=== PATIENT | male | born 1950 | race Caucasian/White ===

== ENCOUNTER 2022-10-27 11:26 | Emergency (ER) | payer OTHER, SELFPAY ==
--- OUTSIDE RECORDS SUMMARY | 2022-10-27 11:39 | XMS REPORT | Continuity of Care Document ---
:1950 Author Organization [facility] t Address [address] [facility] [address] [place] [address] Care Team Providers Name Role Phone BONNIE COBURN Primary Care Physician Unavailable FRANCISCO BARTLETT Attending Clinician Unavailable KYRIE STANLEY Attending Clinician Unavailable BONNIE COBURN Attending Clinician Unavailable RACHANA STEIN Attending Clinician Unavailable VICKY CUMMINGS Attending Clinician Unavailable WILFREDO REYNA Attending Clinician Unavailable [email or web address]_Corbyuer_ Attending Clinician Unavailable KALI PADGTET Attending Clinician Unavailable BRANDON PARRISH Attending Clinician Unavailable YAA VILLALTA Attending Clinician Unavailable MD PATI Attending Clinician Unavailable Stefan Power Attending Clinician [phone] Belinda Beltran MD Attending Clinician Anjel Curiel MD Attending Clinician ANJEL CURIEL Attending Clinician Unavailable KEIRA VALADEZ Attending Clinician Unavailable MAINOR TRIANA Attending Clinician Unavailable STEFAN PEREZ Attending Clinician Unavailable BELINDA ESPINAL Attending Clinician Unavailable JULIÁN RODRIGES Attending Clinician Unavailable UDAY ABRAMS Attending Clinician Unavailable LAB56 Attending Clinician Unavailable Vicky Cummings PA-C Attending Clinician TREDCameron Attending Clinician Unavailable DEIDRA MULLER Attending Clinician Unavailable Francisco Bartlett MD Attending Clinician BISI VANN Attending Clinician Unavailable LAB70 Attending Clinician Unavailable Bonnie Coburn MD Attending Clinician Bisi Vann MD Attending Clinician MONIQUE NOYOLA Attending Clinician Unavailable SWAB, SMDC COVID SELF Attending Clinician Unavailable [id number] Attending Clinician Unavailable VICTOR HUGONAILA KAYE Attending Clinician Unavailable O'Brien Au.DNaila Attending Clinician [phone] Yohana JONESW, Deidra Attending Clinician OREN NAVA Attending Clinician Unavailable DOMINGO LEBRON Attending Clinician Unavailable ALMA ARCE Attending Clinician Unavailable Alma Arce MD Attending Clinician Becky Smith OD Attending Clinician COVID-MODERNA UDAY JAFFE Attending Clinician Unavailabl e PROVIDER, EVISIT Attending Clinician Unavailable Ernie Prabhakar MD Attending Clinician [phone] VANNA CHANCE Attending Clinician Unavailable AALIYAH FITZGERALD Attending Clinician Unavailable [email or web address]_Corbybauer_ Admitting Clinician Unavailable ANJEL CURIEL Admitting Clinician Unavailable Payers Payer Name Policy Type Policy Number Effective Date Expiration Date Cleopatra rapp Yandy [facility] 7 [id number] 2013 00:00:00 Problems Condition Condition Condition Status Onset Resolution Last Treating Co mments Source Name Details Category Date Date Treatment Clinician Date Witnessed Witnessed Disease Active [facility] seizure-li seizure-li 3 Aminta kes ke ke 00:00: Medical activity activity 00 Center Acute on Acute on Disease Recurre [facility] chronic chronic [facility]ce 3 [facility] pancreatit pancreatit 00:00: Me dical is is 00 Center Acute Acute Disease Recurre [facility] renal renal nce 3 [facility] failure failure 00:00: Medical superimpos superimpos 00 Ce nter ed on ed on stage 3a stage 3a chronic chronic kidney kidney disease disease Hyponatrem Hyponatrem Disease Recurre [facility] ia ia nce 07[facility]22 [facility] 00[facility] Center UTI UTI Disease Active [facility] (urinary (urinary 3-06 [facility] tract tract 00:00: Medical infection) infection) 00 Ce nter Acute Acute Disease Active [facility] pancreatit pancreatit 3-06 Aminta kes is, is, 00:00: Medical unspecifie unspecifie 00 Ce nter d d complicati complicati on status, on status, unspecifie unspecifie d d pancreatit pancreatit is type is type Renal Renal Disease Active [facility] lesion lesion 3-06 [facility] Immunocomp Immunocomp Disease Active Harman fish romised romised 1-05 Seybold patient patient 00:00: - 00 Externa l Severe Severe Disease Active 2021-05 [facility] obesity obesity 2-29 Seybold (BMI >= (BMI >= 00:00: - 40) 40) 00 Externa l 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 2-29 Seybol d mellitus mellitus 00:00: - with with 00 Externa hyperlipid hyperlipid l emia emia 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 Harman fish ed type 2 ed type 2 2-23 Seyb old diabetes diabetes 00:00: - mellitus mellitus 00 Potato Inspector a with with l hyperglyce hyperglyce dhaval dhaval Generalize Generalize Disease Active 2020-05 Harman rossi anxiety d anxiety 0-27 Seyb old disorder disorder 00:00: - 00 Externa l Acute Acute Disease Active Ada left-sided left-sided 9-16 Se ybold low back low back 00:00: - pain with pain with 00 Exte rna left-sided left-sided l sciatica sciatica Anger Anger Disease Active Ada 6-24 Seybold 00:00: - 00 Externa l 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 6-20 Se ybold disorder, disorder, 00:00: - recurrent, recurrent, 00 Ex terna moderate moderate l Passive Passive Disease Active Ada suicidal suicidal 6-20 Seybol d ideations ideations 00:00: - 00 Externa l Episode of Episode of Disease Active Harman fish recurrent recurrent 6-20 Seyb old major major 00:00: depressive depressive 00 disorder disorder Type 2 Type 2 Disease Active Overview: Ada diabetes diabetes 4-08 Formattin Sey bold mellitus mellitus 00:00: g of this - with stage with stage 00 note Ex terna 3a chronic 3a chronic might be l kidney kidney different disease disease from the original. StableLas t Assessmen t & Plan: Formattin g of this note might be different from the original. Improved on Insulin and FORTINO I Stage 3a Stage 3a Disease Active Overview: Zahc lsey chronic chronic 4-06 Formattin Seybo ld kidney kidney 00:00: g of this - disease disease 00 note Externa might be l different from the original. Persists. Last Assessmen t & Plan: Formattin g of this note might be different from the original. Controlle d on Lisinopri l Recurrent Recurrent Disease Active Sumanth sey major major 4-06 Seybold depressive depressive 00:00: disorder, disorder, 00 in partial in partial remission remission Bilateral Bilateral Disease Active Sumanth lois hearing hearing 4-06 Seybold loss loss 00:00: - 00 Externa l Gastroesop Gastroesop Disease Active Harman fish hageal hageal 4-06 Seybold reflux reflux 00:00: disease disease 00 with with esophagiti esophagiti s s Morbid Morbid Disease Active Ada obesity obesity 4-06 Seybold with BMI with BMI 00:00: - of of 00 Externa 40.0-44.9, 40.0-44.9, l adult adult Hypothyroi Hypothyroi Disease Active Harman fish dism dism 4-06 Seybold 00:00: - 00 Externa l 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 The patient is advised to monitor their blood pressure regularly . DASH diet is discussed . Please bring the records in for the next visit. 1991Last Assessmen t & Plan: Formattin g of this note might be different from the original. Controlle d on Metoprolo l, HCTZ, Lisinopri l. Diabetic Diabetic Disease Active Overview: Zach david cataract cataract 7 Formattin Sey bold 00:00: g of this - note Externa might be l different from the original. Follow up with ophthalmo logy. Type 2 Type 2 Disease Active Enoc Caballero diabetes diabetes 3-04 Assessmen Lois valero mellitus mellitus 00:00: t & Plan: - with with 00 Formattin Externa atheroscle atheroscle g of this l rosis of rosis of note aorta aorta might be different from the original. Controlle d Encounter Encounter Disease Active 2017-05 Sumanth rausch for for - Seybold long-term long-term 00:00: - (current) (current) 00 Exte rna use of use of l insulin insulin Hypertensi Hypertensi Disease Active 2016-05 Overview : Ada ve chronic ve chronic 0-24 Formattin Seybold kidney kidney 00:00: g of this - disease disease 00 note Externa might be l different from the original. The patient is advised to monitor their blood pressure regularly . DASH diet is discussed . Please bring the records in for the next visit. Last Assessmen t & Plan: Formattin g of this note might be different from the original. 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 Stable.La st Assessmen t & Plan: Formattin g of this note might be different from the original. Controlle d on current medicatio ns. 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 I recommend you exercise regularly and decrease consumpti on of high sugar foods including refined sugars, white rice, white bread, pasta, potatoes, fruit juices, and high fructose beverages . I also suggest increasin g consumpti on of fish that contain high amounts of omega-3 fatty acids such as salmon or white fish (such has cod, sea aguilar, snapper, wild catfish). Last Assessmen t & Plan: Formattin g of this note might be different from the original. Improved. Intoleran t of Statin. Only on Zetia. Vitamin D Vitamin D Disease Active Overview: Ada deficiency deficiency 4-17 Formattin Seybold 00:00: g of this note Externa might be l different from the original. Further managemen t will be based on the test results. Last Assessmen t & Plan: Formattin g of this note might be different from the original. Controlle d Colon Colon Disease Active 2015-05 Ada polyps polyps 2-08 Seybold 00:00: - 00 Externa l Cataract, Cataract, Disease Active 2015-05 Sumanth sey nuclear nuclear 0-25 Seybold sclerotic sclerotic 00:00: - senile, senile, 00 Externa bilateral bilateral l Posterior Posterior Disease Active 2015-05 Sumanth sey vitreous vitreous 0-25 Seybol d detachment detachment 00:00: - of both of both 00 Externa eyes eyes l Stage 3 Stage [address] [facility] chronic chronic nce 1-20 [facility] kidney kidney 00:00: Medical disease disease 00 Center Cellulitis Cellulitis Disease Active [facility] of left of left 1-20 [facility] foot foot 00:00: Medical 00 Center Diabetes Diabetes Disease Active [facility] mellitus mellitus 1-20 [facility] type 2 in type 2 in 00:00: Medi jossue obese obese 00 Center Morbid Morbid Disease Active [facility] obesity obesity 1-20 [facility] 00:[facility]: Medical 00 Center DM type 2 DM type 2 Disease Active 2014-05 Overview: Ada with with 1-30 Formattin Seybold diabetic diabetic 00:00: g of this - mixed mixed 00 note Externa hyperlipid hyperlipid might be l emia emia different from the original. The patient was advised to monitor their blood sugars regularly . Proper diet (carbohyd rate counting) and exercise are discussed . Annual diabetic eye exams are to be done. Proper foot care is also discussed . Last Assessmen t & Plan: Formattin g of this note might be different from the original. Controlle d on Insulin Psoriasis Psoriasis Disease Active 2014-05 Overview: Ada 1-30 Formattin Seybold 00:00: g of this note Externa might be l different from the original. No current treatment Last Assessmen t & Plan: Formattin g of this note might be different from the original. Unchanged HIEU HIEU Disease Recurre [facility] (obstructi (obstructi nce 8-13 Aminta kes ve sleep ve sleep 00:00: Medica l apnea) apnea) 00 Center Cellulitis Cellulitis Disease Active [facility] of foot of foot 8-13 [facility] without without 00:00: Medical toes, toes, 00 Center right right CAD CAD Disease Active [facility] (coronary (coronary 4-08 [facility] s artery artery 00:00: Medical disease) disease) 00 Center HTN HTN Disease Active [facility] (hypertens (hypertens 4-08 Aminta kes ion) ion) 00:00: Medical 00 Center HLD HLD Disease Active [facility] (hyperlipi (hyperlipi 4-08 Aminta kes demia) demia) 00:00: Medical 00 Center Obesity Obesity Disease Active [facility] 4[facility]08 [facility] 00[facility]: [facility] 00 Center 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 F/U with cardiolog y.Last Assessmen t & Plan: Formattin g of this note might be different from the original. Controlle d On current meds. GERD GERD Disease Active Overview: Ada (gastroeso (gastroeso 3-11 Formattin Seybold phageal phageal 00:00: g of this - reflux reflux 00 note Externa disease) disease) might be l different from the original. GERD behaviora l and dietary modificat ions were discussed with the patient. Last Assessmen t & Plan: Formattin g of this note might be different from the original. Controlle d on Pantopraz ole CAD: CAD: Disease Active Overview: Ada history of history of 8-20 Formattin Seybold RCA stent RCA stent 00:00: g of this - note Externa might be l different from the original. He is following up with Dr. Stein. Last Assessmen t & Plan: Formattin g of this note might be different from the original. Controlle d With Clopidogr el, and zetia Allergies, Adverse Reactions, Alerts Allergy Allergy Status Severity Reaction(s) Onset Inactive Treating Comm ents Source Name Type Date Date Clinician Rosuvast Propensi Active Myalgia Kelse y atin ty to 1-20 Seybold Calcium adverse 00:00: - reaction 00 Externa s l Statins- Propensi Active [facility]Co[facility] ty to 12-11 [facility] Reductas adverse 00:00: Medical e reaction 00 Center Inhibito s rs Statins- Propensi Active [facility] to 12-11 [facility] Reductas adverse 00:00: Medical e reaction 00 Center Inhibito s rs STATINS- Allergy Active [facility]G-COA 12-11 REDUCTAS 00:00: E 00 INHIBITO RS Fenofibr Drug Active Hives 2016-[address] [facility] ate Allergy 06-16 [facility] 00:00: Medical 00 Center FENOFIBR Allergy Active Hives 2016-[address] [facility] ATE 06-16 [facility] 00:00: Medical 00 Center Fenofibr Propensi Active Myalgia 2016-05 Kelse y ate ty to -29 Seybold adverse 00:00: - reaction 00 Externa s to l drug Fenofibr Propensi Active Myalgia 2016-05 Kelse y ate ty to 1-29 Seybold adverse 00:00: reaction 00 s to drug Atorvast Propensi Active Myalgia Myalgias Sumanth sey atin ty to 4-26 at doses Seybold adverse 00:00: > 20 mg - reaction 00 Externa s to l drug Pravasta Propensi Active Myalgia 2015-05 Kelse y tin ty to 2-30 Seybold adverse 00:00: - reaction 00 Externa s l Metformi Drug Active Nausea [facility] n Allergy Vomiting 08-20 [facility] 00:[facility]: Medical 00 Center METFORMI Allergy Active N\\T\\V [facility] N 08-20 00:00: 00 Metformi Propensi Active Upset Ada n ty to 7- stomach Seybold adverse 00:00: - reaction 00 Externa s to l drug Family History Family Member Diagnosis Comments Start Date Stop Date Source Natural brother Heart disease [facility] Natural father Diabetes [facility] Natural father Heart disease [facility] Natural father Hypertension [facility] Natural father Stroke [facility] Natural mother Cancer [facility] Natural son Unremarkable [facility] Social History Social Habit Start Date Stop Date Quantity Comments Source Gender identity 2020-08-21 Identifies as male Harman Becerra 11:44:41 gender (finding) - Potato Inspector al Sexual orientation 2020-08-21 Heterosexual Prema Becerra 11:44:41 (finding) - External Exposure to Not sure Ada Coronadoybol flo SARS-CoV-2 (event) Alcohol intake 2022-07-22 2022-07-22 Current non-drinker [facility] 00:[facility] 00[facility]00[facility]00 of [facility] (finding) Tobacco Comment 2021-04-19 2021-04-19 stopped smoking 43 Harman Becerra 00:00:00 00:00:00 yrs ago - External History of Social 2020-04-29 2020-04-29 Ada Coronadochristophefritz function 00:00:00 00:00:00 - External Cigarettes smoked 2013-12-29 2013-12-[address] [facility] current (pack per 00:00:00 00:00:00 [facility] Center day) - Reported Cigarette 2013-12-29 2013-12-[address] [facility] pack-years 00:00:00 00:00:00 [facility] Tobacco use and 2013-12-29 2013-12-[address] [facility] exposure 00:00:00 00:00:00 non-user [facility] History of tobacco 1987-05-19 Cigarette Smoker Ada Hamfritz use 00:00:00 - External Sex [birth year] At [birth year] IKE Duong 00:00:00 00:00:00 [facility] Smoking Status Start Date Stop Date Source Ex-smoker 2013-12-29 00:00:00 2013-12-29 00:00:00 [facility] Medications Ordered Filled Start Stop Current Ordering Indication Dosage Frequency Signature Comments Components Source Medication Medication Date Date Medication? Clinician (SIG) Name Name Cephalexin Yes [id number] 500mg Take 1 Ada (Keflex) 6 [id number] capsule Seybol d 500 MG oral 00:00: (500 mg - Capsule 00 total) by Externa mouth 4 l times daily Clopidogrel 0 2023- Yes 75mg Take 1 Sumanth sey Bisulfate 5-26 05-21 tablet (75 Sey bold (PLAVIX) 75 00:00: 04:59 mg total) - MG oral 00 :00 by mouth Externa Tablet daily l Fluoxetine 0 Yes [id number] TAKE ONE Ada HCl 40 MG 5-22 CAPSULE BY Seyb old oral 00:00: MOUTH - Capsule 00 EVERY DAY Externa l hydroCHLORO 0 Yes [id number] TAKE ONE Ada thiazide 25 5-19 TABLET BY Sey bold MG oral 00:00: MOUTH - Tablet 00 EVERY DAY Externa l Amlodipine 0 Yes [id number] TAKE ONE Ada Besylate 5-19 TABLET BY Seybol d (NORVASC) 5 00:00: MOUTH - MG oral 00 EVERY DAY Externa Tablet l Ezetimibe 0 Yes [id number] TAKE ONE Ada 10 MG oral 5-19 TABLET BY Seyb old Tablet 00:00: MOUTH - 00 EVERY DAY Externa l ARIPiprazol Yes 1mg QD Take [address] [facility] (ABILIFY) 3-10 by mouth Luke s 2 MG tablet 12:54: daily. [address] EZETIMIBE 0 Yes 10mg QD Take [address] ORAL 3-10 by mouth [facility] 12:54: nightly. [facility] [address] [place] empaglifloz 0 Yes type 2 10mg QD Take [address] [facility] in 3-10 diabetes by mouth [facility] (Jardiance) 12:54: mellitus daily. Medical 10 mg 00 Center tablet lisinopriL Yes hypertensio 20mg QD Take [address] [facility] (PRINIVIL,Z 3-10 n by mouth Luke s ESTRIL) 20 12:54: daily. Medic al MG tablet 00 [place] rosuvastati 0 Yes hyperlipide 5mg QD Take [address] [facility] n (CRESTOR) 3-10 dhaval by mouth Luke s 5 MG tablet 12:54: daily. [address] dapaglifloz 0 3- No type 2 5mg QD Take [address] [facility] in 3-10 03-09 diabetes by mouth [facility] (Farxiga) 5 12:54: 00:00 mellitus daily. Medical mg tablet 00 :00 Center clopidogrel Yes 75mg QD Take [address] [facility] (PLAVIX) 75 -09 by mouth Luke s mg tablet 12:54: daily. Medica l 48 Center hydrochloro Yes 12.5mg QD Take 12.[address] [facility] thiazide 3-09 mg by [facility]ukes (HYDRODIURI 12:54: mouth Medic al L) 25 MG 48 daily . Center tablet insulin NPH Yes 150U Inject [address] [facility] 100 unit/mL 3-09 Units [facility]ukes (3 mL) InPn 12:54: subcutaneo Medical 48 usly 2 Center (two) times daily before meals . metoprolol Yes 50mg QD Take [address] (LOPRESSOR) -09 by mouth Luke s 50 MG 12:54: daily. Medical tablet 48 Center pantoprazol Yes 40mg QD Take [address] [facility] e 3-09 by mouth [facility] (PROTONIX) 12:54: daily. Medic al 40 MG 48 Center tablet cyanocobala Yes 100ug QD Take [address] min 3-09 mcg by [facility] (VITAMIN 12:54: mouth Medical B-12) 100 48 daily. Center MCG tablet multivitami Yes 1{tbl} Take [address] (Folbee) 09 tablet by Frank es 2.5-25-1 mg 12:54: mouth. Medi jossue Tab tablet 48 Center cholecalcif Yes [id number] Take [facility] doc, 07-25 50,000 [facility] vitamin D3, 12:54: Units by Ny dical 1,250 mcg 48 mouth Center (50,000 every 30 unit) Tab (thirty) days. atorvastati 2022- No 20mg QD Take [address] (LIPITOR) 07-25 by mouth Frank es 20 MG 11:55: 00:00 daily. Medical tablet 38 :00 [place] FLUoxetine 0 2022- No 40mg QD Take [address] [facility] (PROZAC) 40 07-25 by mouth Frank es MG capsule 11:44: 00:00 daily. Medi jossue 43 :00 [place] aspirin 81 2022- No 81mg QD Take [address] MG EC 07-25 by mouth [facility] tablet 11:40: 00:00 every Medical 57 :00 evening. [place] etodolac 2022- No 1{tbl} Take [address] [facility] (LODINE) 07-25 tablet by [facility] 400 MG 11:40: 00:00 mouth. Medical tablet 35 :00 [place] Metoprolol Yes [id number] TAKE ONE Ada Tartrate 2-25 TABLET BY Seybol d (LOPRESSOR) 00:00: MOUTH - 50 MG oral 00 EVERY DAY Exte rna Tablet l Pantoprazol Yes TAKE ONE Ke lsey e Sodium 40 1-23 TABLET BY Sey bold MG oral 00:00: MOUTH - Tablet 00 EVERY DAY Externa Delayed l Response Aripiprazol Yes TAKE Ada e 2 MG oral 1-04 ONE-HALF Seyb old Tablet 00:00: TABLET BY - 00 MOUTH Externa EVERY DAY l FOR MOOD MULTIPLE 2021-05 Yes 1{tbl} Take 1 Kelse y VITAMIN OR 2-29 tablet by Seyb old 16:24: mouth - 27 daily Externa l ASPIRIN 81 2021-05 Yes 1{tbl} Take 1 Sumanth sey OR 2-29 tablet by Seybold 16:24: mouth - 27 daily Externa l Folic 2021-05 Yes 1{tbl} Take 1 Ada Acid-Vit 2-29 tablet by Seybol d B6-Vit B12 16:24: mouth - (Folbee) 27 daily Externa 2.5-25-1 MG l oral Tab B Complex 2021-05 Yes 1{tbl} Take 1 Prema ey Vitamins (B 2-29 tablet by Sey bold Complex-B12 16:24: mouth - ) oral Tab 27 daily Externa l Pioglitazon 2021-05 Yes every 24 Ke lsey e HCl 45 MG 2-29 hours Seybold oral Tablet 16:24: - 27 Externa l [place]-3-aci 2021-05 Yes every 12 Ke lsey d Ethyl 2-29 hours Seybold Esters 1 g 16:24: - oral 27 Externa Capsule l Turmeric 2021-05 Yes 1{capsu Take 1 Prema ey 500 MG oral 2-29 le} capsule by Se ybold Capsule 16:24: mouth 2 - 27 times Externa daily l MULTIPLE 2021-05 Yes 1{tbl} Take 1 Kelse y VITAMIN OR 2-29 tablet by Seyb old 16:24: mouth - 27 daily Externa l Folic 2021-05 Yes 1{tbl} Take 1 Ada Acid-Vit 2-29 tablet by Seybol d B6-Vit B12 16:24: mouth - (Folbee) 27 daily Externa 2.5-25-1 MG l oral Tab B Complex 2021-05 Yes 1{tbl} Take 1 Prema ey Vitamins (B 2-29 tablet by Sey bold Complex-B12 16:24: mouth - ) oral Tab 27 daily Externa l [place]-3-aci 2021-05 Yes every 12 Ke lsey d Ethyl 2-29 hours Seybold Esters 1 g 16:24: - oral 27 Externa Capsule l Turmeric 2021-05 Yes 1{capsu Take 1 Prema ey 500 MG oral 2- le} capsule by Se ybold Capsule 16:24: mouth 2 - 27 times Externa daily l Empaglifloz 2021-05 Yes [id number] 1{tbl} Take 1 Ada in 2-29 tablet by Seybold (Jardiance) 00:00: mouth - 10 MG oral 00 daily Externa Tablet l Empaglifloz 2021-05 Yes [id number] 1{tbl} Take 1 Ada in 2-29 tablet by Seybold (Jardiance) 00:00: mouth - 10 MG oral 00 daily Externa Tablet l Empaglifloz 2021-05- No [id number] 1{tbl} Take 1 Ada in 2-29 12-29 tablet by Seybold (Jardiance) 00:00: 00:00 mouth - 10 MG oral 00 :00 daily Externa Tablet l Rosuvastati 2021-05 Yes [id number] 5mg Take 1 Ada n Calcium 5 2-28 tablet (5 Sey bold MG oral 00:00: mg total) - Tablet 00 by mouth Externa daily l Metoprolol 2021-05 Yes [id number] 50mg Take 1 K elsey Tartrate 50 2-28 tablet (50 Se ybold MG oral 00:00: mg total) - Tablet 00 by mouth Externa daily l hydroCHLORO 2021-05 Yes [id number] 25mg Take 1 Ada thiazide 25 2-28 tablet (25 Se ybold MG oral 00:00: mg total) - Tablet 00 by mouth Externa daily l Amlodipine 2021-05 Yes [id number] 5mg Take 1 K elsey Besylate 5 2-28 tablet (5 Seyb old MG oral 00:00: mg total) - Tablet 00 by mouth Externa daily l Ezetimibe 2021-05 Yes [id number] 10mg Take 1 Ke lsey 10 MG oral 2-28 tablet (10 Sey bold Tablet 00:00: mg total) - 00 by mouth Externa nightly l Lisinopril 2021-05 Yes [id number] 20mg Take 1 Ada 20 MG oral 2-28 tablet (20 Sey bold Tablet 00:00: mg total) - 00 by mouth 2 Externa times l daily Rosuvastati 2021-05 Yes [id number] 5mg Take 1 Ada n Calcium 5 2-28 tablet (5 Sey bold MG oral 00:00: mg total) - Tablet 00 by mouth Externa daily l Lisinopril 2021-05 Yes [id number] 20mg Take 1 Ada 20 MG oral 2-28 tablet (20 Sey bold Tablet 00:00: mg total) - 00 by mouth 2 Externa times l daily Insulin 2021-05 Yes INJECT 100 Prema ey NPH, 2-06 UNITS INTO Seybold Human,, 00:00: THE SKIN - Isophane, 00 TWICE A Externa (NovoLIN N) DAY WITH l 100 UNIT/ML MEALS subcutaneou s Suspension Insulin 2021-05 Yes INJECT 100 Prema ey NPH, 2-06 UNITS INTO Seybold Human,, 00:00: THE SKIN - Isophane, 00 TWICE A Externa (NovoLIN N) DAY WITH l 100 UNIT/ML MEALS subcutaneou s Suspension Pantoprazol Yes TAKE ONE Ke lsey e Sodium 40 9-25 TABLET BY Sey bold MG oral 00:00: MOUTH - Tablet 00 EVERY DAY Externa Delayed l Response Baclofen 5 Yes [id number] 5mg Q.5D Take 1 Ada MG oral 8-01 tablet (5 Seybold Tablet 00:00: mg total) - 00 by mouth 2 Externa times l daily as needed for muscle spasms or pain Allopurinol Yes [id number] TAKE ONE Ada 100 MG oral 7-06 TABLET BY Sey bold Tablet 00:00: MOUTH - 00 EVERY DAY Externa l Allopurinol Yes [id number] TAKE ONE Ada 100 MG oral 7-06 TABLET BY Sey bold Tablet 00:00: MOUTH - 00 EVERY DAY Externa l MULTIPLE 0 Yes 1{tbl} Take 1 Kelse y VITAMIN OR 5-03 tablet by Seyb old 10:48: mouth 02 daily ASPIRIN 81 Yes 1{tbl} Take 1 Sumanth sey OR 5-03 tablet by Seybold 10:48: mouth 02 daily Folic Yes 1{tbl} Take 1 Ada Acid-Vit 5-03 tablet by Seybol d B6-Vit B12 10:48: mouth (Folbee) 02 daily 2.5-25-1 MG oral Tab B Complex Yes 1{tbl} Take 1 Prema ey Vitamins (B 5-03 tablet by Sey bold Complex-B12 10:48: mouth ) oral Tab 02 daily Pioglitazon Yes every 24 Ke lsey e HCl 45 MG 5-03 hours Seybold oral Tablet 10:48: 02 Lisinopril Yes 40mg Take 40 mg K elsey 40 MG oral 5-03 by mouth 2 Sey bold Tablet 10:48: times 02 daily [place]-3-aci Yes every 12 Ke lsey d Ethyl 5-03 hours Seybold Esters 1 g 10:48: oral 02 Capsule Turmeric Yes 1{capsu Take 1 Prema ey 500 MG oral 5-03 le} capsule by Se ybold Capsule 10:48: mouth 2 02 times daily Aripiprazol Yes Take 0.5 Ke lsey e 2 MG oral 5-03 tab po Seybol d Tablet 00:00: daily for 00 mood. Fluoxetine Yes [id number] 40mg Take 1 K elsey HCl 40 MG 5-03 capsule Seybold oral 00:00: (40 mg Capsule 00 total) by mouth daily Aripiprazol Yes Take 0.5 Ke lsey e 2 MG oral 5-03 tab po Seybol d Tablet 00:00: daily for - 00 mood. Externa l Fluoxetine Yes [id number] 40mg Take 1 K elsey HCl 40 MG 5-03 capsule Seybold oral 00:00: (40 mg - Capsule 00 total) by Externa mouth l daily Amlodipine Yes [id number] 7.5mg Take 1.5 Ada Besylate 5 4-12 tablets Seybol d MG oral 00:00: (7.5 mg Tablet 00 total) by mouth daily Rosuvastati Yes [id number] 5mg Take 1 Ada n Calcium 5 4-12 tablet (5 Sey bold MG oral 00:00: mg total) Tablet 00 by mouth every other day Dapaglifloz Yes [id number] 1{tbl} Take 1 Ada in 4-05 tablet by Seybold Propanediol 00:00: mouth (Farxiga) 5 00 daily MG oral Tablet Dapaglifloz 2021- No [id number] 1{tbl} Take 1 Ada in 4-05 12-29 tablet by Seybold Propanediol 00:00: 00:00 mouth - (Farxiga) 5 00 :00 daily Externa MG oral l Tablet MULTIPLE Yes 1{tbl} Take 1 Kelse y VITAMIN OR 3-01 tablet by Seyb old 14:49: mouth 05 daily ASPIRIN 81 Yes 1{tbl} Take 1 Sumanth sey OR 3-01 tablet by Seybold 14:49: mouth 05 daily Folic Yes 1{tbl} Take 1 Ada Acid-Vit 3-01 tablet by Seybol d B6-Vit B12 14:49: mouth (Folbee) 05 daily 2.5-25-1 MG oral Tab B Complex Yes 1{tbl} Take 1 Prema ey Vitamins (B 3-01 tablet by Sey bold Complex-B12 14:49: mouth ) oral Tab 05 daily Pioglitazon Yes every 24 Ke lsey e HCl 3-01 hours Seybold (Actos) 45 14:49: MG oral 05 Tablet Lisinopril Yes 40mg Take 40 mg K elsey 40 MG oral 3-01 by mouth 2 Sey bold Tablet 14:49: times 05 daily [place]-3-aci Yes every 12 Ke lsey d Ethyl 3-01 hours Seybold Esters 1 g 14:49: oral 05 Capsule Turmeric Yes 1{capsu Take 1 Prema ey 500 MG oral 3-01 le} capsule by Se ybold Capsule 14:49: mouth 2 05 times daily Dapaglifloz Yes [id number] 1{tbl} Take 1 Ada in 3-01 tablet by Seybold Propanediol 00:00: mouth (Farxiga) 5 00 daily MG oral Tablet Insulin Yes 100U Inject 100 Prema ey NPH, 2-15 units into Seybold Human,, 00:00: the skin 2 Isophane, 00 times (NovoLIN N) daily 100 UNIT/ML (with subcutaneou meals) s Suspension Insulin Yes 100U Inject 100 Prema ey NPH, 2-15 units into Seybold Human,, 00:00: the skin 2 Isophane, 00 times (NovoLIN N) daily 100 UNIT/ML (with subcutaneou meals) s Suspension Pantoprazol Yes TAKE ONE Ke lsey e Sodium 40 2-10 TABLET BY Sey bold MG oral 00:00: MOUTH Tablet 00 EVERY DAY Delayed Response Pantoprazol Yes TAKE ONE Ke lsey e Sodium 40 2-10 TABLET BY Sey bold MG oral 00:00: MOUTH Tablet 00 EVERY DAY Delayed Response MULTIPLE Yes 1{tbl} Take 1 Kelse y VITAMIN OR 2-01 tablet by Seyb old 09:58: mouth 32 daily ASPIRIN 81 Yes 1{tbl} Take 1 Sumanth sey OR 2-01 tablet by Seybold 09:58: mouth 32 daily Folic Yes 1{tbl} Take 1 Ada Acid-Vit 2-01 tablet by Seybol d B6-Vit B12 09:58: mouth (Folbee) 32 daily 2.5-25-1 MG oral Tab B Complex Yes 1{tbl} Take 1 Prema ey Vitamins (B 2-01 tablet by Sey bold Complex-B12 09:58: mouth ) oral Tab 32 daily Pioglitazon Yes every 24 Ke lsey e HCl 2-01 hours Seybold (Actos) 45 09:58: MG oral 32 Tablet Lisinopril Yes every 24 Sumanth sey 40 MG oral 2-01 hours Seybold Tablet 09:58: 32 [place]-3-aci 0 Yes every 12 Ke lsey d Ethyl 2-01 hours Seybold Esters 1 g 09:58: oral 32 Capsule Turmeric Yes 1{capsu Take 1 Prema ey 500 MG oral 2-01 le} capsule by Se ybold Capsule 09:58: mouth 2 32 times daily MULTIPLE Yes 1{tbl} Take 1 Kelse y VITAMIN OR 2-01 tablet by Seyb old 07:59: mouth 26 daily ASPIRIN 81 Yes 1{tbl} Take 1 Sumanth sey OR 2-01 tablet by Seybold 07:59: mouth 26 daily Folic Yes 1{tbl} Take 1 Ada Acid-Vit 2-01 tablet by Seybol d B6-Vit B12 07:59: mouth (Folbee) 26 daily 2.5-25-1 MG oral Tab B Complex Yes 1{tbl} Take 1 Prema ey Vitamins (B 2-01 tablet by Sey bold Complex-B12 07:59: mouth ) oral Tab 26 daily Pioglitazon Yes every 24 Ke lsey e HCl 2-01 hours Seybold (Actos) 45 07:59: MG oral 26 Tablet Lisinopril Yes every 24 Sumanth sey 40 MG oral 2-01 hours Seybold Tablet 07:59: 26 [place]-3-aci 0 Yes every 12 Ke lsey d Ethyl 2-01 hours Seybold Esters 1 g 07:59: oral 26 Capsule Turmeric Yes 1{capsu Take 1 Prema ey 500 MG oral 2-01 le} capsule by Se ybold Capsule 07:59: mouth 2 26 times daily Aripiprazol Yes [id number] Take 1 tab Ada e 2 MG oral 2-01 po daily Seyb old Tablet 00:00: for mood. 00 Aripiprazol 2021-0 Yes [id number] Take 1 tab Ada e 2 MG oral 2-01 po daily Seyb old Tablet 00:00: for mood. 00 Aripiprazol 2021-0 2- No [id number] Take 1 tab Ada e 2 MG oral 2-05 23-03 po daily Sey bold Tablet 00:00: 00:00 for mood. 00 :00 Rosuvastati 2021-0 Yes [id number] 5mg Take 1 Ada n Calcium 5 1-18 tablet (5 Sey bold MG oral 00:00: mg total) Tablet 00 by mouth every other day Ezetimibe 2021-0 Yes [id number] 10mg Take 1 K elsey 10 MG oral 1-18 tablet (10 Sey bold Tablet 00:00: mg total) 00 by mouth daily Rosuvastati 2021-0 Yes [id number] 5mg Take 1 Ada n Calcium 5 1-18 tablet (5 Sey bold MG oral 00:00: mg total) Tablet 00 by mouth every other day Ezetimibe 2021-0 Yes [id number] 10mg Take 1 K elsey 10 MG oral 1-18 tablet (10 Sey bold Tablet 00:00: mg total) 00 by mouth daily Rosuvastati 0 Yes [id number] 5mg Take 1 Ada n Calcium 5 1-18 tablet (5 Sey bold MG oral 00:00: mg total) Tablet 00 by mouth every other day Ezetimibe 0 Yes [id number] 10mg Take 1 K elsey 10 MG oral 1-18 tablet (10 Sey bold Tablet 00:00: mg total) 00 by mouth daily Ezetimibe 2021-0 Yes [id number] 10mg Take 1 K elsey 10 MG oral 1-18 tablet (10 Sey bold Tablet 00:00: mg total) 00 by mouth daily Clopidogrel 0 Yes [id number] 75mg Take 1 Ada Bisulfate 1-17 tablet (75 Seyb old 75 MG oral 00:00: mg total) Tablet 00 by mouth daily hydroCHLORO 2021-0 Yes [id number] 25mg Take 1 Ada thiazide 25 1-17 tablet (25 Se ybold MG oral 00:00: mg total) Tablet 00 by mouth daily Metoprolol 2021-0 Yes [id number] 50mg Take 1 K elsey Tartrate 50 1-17 tablet (50 Se ybold MG oral 00:00: mg total) Tablet 00 by mouth daily Clopidogrel Yes [id number] 75mg Take 1 Ada Bisulfate 1-17 tablet (75 Seyb old 75 MG oral 00:00: mg total) Tablet 00 by mouth daily hydroCHLORO Yes [id number] 25mg Take 1 Ada thiazide 25 1-17 tablet (25 Se ybold MG oral 00:00: mg total) Tablet 00 by mouth daily Metoprolol Yes [id number] 50mg Take 1 K elsey Tartrate 50 1-17 tablet (50 Se ybold MG oral 00:00: mg total) Tablet 00 by mouth daily Clopidogrel Yes [id number] 75mg Take 1 Ada Bisulfate 1-17 tablet (75 Seyb old 75 MG oral 00:00: mg total) Tablet 00 by mouth daily hydroCHLORO Yes [id number] 25mg Take 1 Ada thiazide 25 1-17 tablet (25 Se ybold MG oral 00:00: mg total) Tablet 00 by mouth daily Metoprolol Yes [id number] 50mg Take 1 K elsey Tartrate 50 1-17 tablet (50 Se ybold MG oral 00:00: mg total) Tablet 00 by mouth daily Clopidogrel Yes [id number] 75mg Take 1 Ada Bisulfate 1-17 tablet (75 Seyb old 75 MG oral 00:00: mg total) Tablet 00 by mouth daily hydroCHLORO Yes [id number] 25mg Take 1 Ada thiazide 25 1-17 tablet (25 Se ybold MG oral 00:00: mg total) Tablet 00 by mouth daily Metoprolol Yes [id number] 50mg Take 1 K elsey Tartrate 50 1-17 tablet (50 Se ybold MG oral 00:00: mg total) Tablet 00 by mouth daily MULTIPLE Yes 1{tbl} Take 1 Kelse y VITAMIN OR 1-04 tablet by Seyb old 15:54: mouth 16 daily ASPIRIN 81 Yes 1{tbl} Take 1 Sumanth sey OR 1-04 tablet by Seybold 15:54: mouth 16 daily Folic Yes 1{tbl} Take 1 Ada Acid-Vit 1-04 tablet by Seybol d B6-Vit B12 15:54: mouth (Folbee) 16 daily 2.5-25-1 MG oral Tab B Complex Yes 1{tbl} Take 1 Prema ey Vitamins (B 1-04 tablet by Sey bold Complex-B12 15:54: mouth ) oral Tab 16 daily Pioglitazon Yes every 24 Ke lsey e HCl 1-04 hours Seybold (Actos) 45 15:54: MG oral 16 Tablet Lisinopril Yes every 24 Sumanth sey 40 MG oral 1-04 hours Seybold Tablet 15:54: 16 Metoprolol Yes Ada Succinate 1-04 Seybold 50 MG oral 15:54: Capsule ER 16 24 Hour Sprinkle [place]-3-aci Yes every 12 Ke lsey d Ethyl 1-04 hours Seybold Esters 1 g 15:54: oral 16 Capsule Turmeric Yes 1{capsu Take 1 Prema ey 500 MG oral 1-04 le} capsule by Se ybold Capsule 15:54: mouth 2 16 times daily Ezetimibe Yes 10mg Take 10 mg Ke lsey 10 MG oral 1-04 by mouth Seybo ld Tablet 15:54: daily 16 MULTIPLE Yes 1{tbl} Take 1 Kelse y VITAMIN OR 1-04 tablet by Seyb old 15:54: mouth 16 daily ASPIRIN 81 Yes 1{tbl} Take 1 Sumanth sey OR 1-04 tablet by Seybold 15:54: mouth 16 daily Folic Yes 1{tbl} Take 1 Ada Acid-Vit 1-04 tablet by Seybol d B6-Vit B12 15:54: mouth (Folbee) 16 daily 2.5-25-1 MG oral Tab B Complex Yes 1{tbl} Take 1 Prema ey Vitamins (B 1-04 tablet by Sey bold Complex-B12 15:54: mouth ) oral Tab 16 daily Pioglitazon Yes every 24 Ke lsey e HCl 1-04 hours Seybold (Actos) 45 15:54: MG oral 16 Tablet Lisinopril Yes every 24 Sumanth sey 40 MG oral 1-04 hours Seybold Tablet 15:54: 16 Metoprolol Yes Ada Succinate 1-04 Seybold 50 MG oral 15:54: Capsule ER 16 24 Hour Sprinkle [place]-3-aci Yes every 12 Ke lsey d Ethyl 1-04 hours Seybold Esters 1 g 15:54: oral 16 Capsule Turmeric Yes 1{capsu Take 1 Prema ey 500 MG oral 1-04 le} capsule by Se ybold Capsule 15:54: mouth 2 16 times daily Ezetimibe Yes 10mg Take 10 mg Ke lsey 10 MG oral 1-04 by mouth Seybo ld Tablet 15:54: daily 16 Amlodipine Yes [id number] TAKE ONE Ada Besylate 5 1-04 AND Seybold MG oral 00:00: ONE-HALF Tablet 00 TABLETS BY MOUTH EVERY DAY Amlodipine Yes [id number] TAKE ONE Ada Besylate 5 1-04 AND Seybold MG oral 00:00: ONE-HALF Tablet 00 TABLETS BY MOUTH EVERY DAY Amlodipine Yes [id number] TAKE ONE Ada Besylate 5 1-04 AND Seybold MG oral 00:00: ONE-HALF Tablet 00 TABLETS BY MOUTH EVERY DAY Amlodipine Yes [id number] TAKE ONE Ada Besylate 5 1-04 AND Seybold MG oral 00:00: ONE-HALF Tablet 00 TABLETS BY MOUTH EVERY DAY Amlodipine Yes [id number] TAKE ONE Ada Besylate 5 1-04 AND Seybold MG oral 00:00: ONE-HALF Tablet 00 TABLETS BY MOUTH EVERY DAY MULTIPLE 2020-05 Yes 1{tbl} Take 1 Kelse y VITAMIN OR 2-21 tablet by Seyb old 09:46: mouth 20 daily ASPIRIN 81 2020-05 Yes 1{tbl} Take 1 Sumanth sey OR 2-21 tablet by Seybold 09:46: mouth 20 daily Folic 2020-05 Yes 1{tbl} Take 1 Ada Acid-Vit 2-21 tablet by Seybol d B6-Vit B12 09:46: mouth (Folbee) 20 daily 2.5-25-1 MG oral Tab B Complex 2020-05 Yes 1{tbl} Take 1 Prema ey Vitamins (B 2-21 tablet by Sey bold Complex-B12 09:46: mouth ) oral Tab 20 daily Pioglitazon 2020-05 Yes every 24 Ke lsey e HCl 2-21 hours Seybold (Actos) 45 09:46: MG oral 20 Tablet Lisinopril 2020-05 Yes every 24 Sumanth sey 40 MG oral 2-21 hours Seybold Tablet 09:46: 20 Metoprolol 2020-05 Yes Ada Succinate 2-21 Seybold 50 MG oral 09:46: Capsule ER 20 24 Hour Sprinkle [place]-3-aci 2020-05 Yes every 12 Ke lsey d Ethyl 2-21 hours Seybold Esters 1 g 09:46: oral 20 Capsule Turmeric 2020-05 Yes 1{capsu Take 1 Prema ey 500 MG oral 2-21 le} capsule by Se ybold Capsule 09:46: mouth 2 20 times daily Ezetimibe 2020-05 Yes 10mg Take 10 mg Ke lsey 10 MG oral 2-21 by mouth Seybo ld Tablet 09:46: daily 20 MULTIPLE 2020-05 Yes 1{tbl} Take 1 Kelse y VITAMIN OR 2-14 tablet by Seyb old 15:21: mouth 13 daily ASPIRIN 81 2020-05 Yes 1{tbl} Take 1 Sumanth sey OR 2-14 tablet by Seybold 15:21: mouth 13 daily Folic 2020-05 Yes 1{tbl} Take 1 Ada Acid-Vit 2-14 tablet by Seybol d B6-Vit B12 15:21: mouth (Folbee) 13 daily 2.5-25-1 MG oral Tab B Complex 2020-05 Yes 1{tbl} Take 1 Prema ey Vitamins (B 2-14 tablet by Sey bold Complex-B12 15:21: mouth ) oral Tab 13 daily Pioglitazon 2020-05 Yes every 24 Ke lsey e HCl 2-14 hours Seybold (Actos) 45 15:21: MG oral 13 Tablet Lisinopril 2020-05 Yes every 24 Sumanth sey 40 MG oral 2-14 hours Seybold Tablet 15:21: 13 Metoprolol 2020-05 Yes Ada Succinate 2-14 Seybold 50 MG oral 15:21: Capsule ER 13 24 Hour Sprinkle [place]-3-aci 2020-05 Yes every 12 Ke lsey d Ethyl 2-14 hours Seybold Esters 1 g 15:21: oral 13 Capsule Turmeric 2021-1 Yes 1{capsu Take 1 Prema ey 500 MG oral 2-14 le} capsule by Se ybold Capsule 15:21: mouth 2 13 times daily Ezetimibe 2020-05 Yes 10mg Take 10 mg Ke lsey 10 MG oral 2-14 by mouth Seybo ld Tablet 15:21: daily 13 MULTIPLE 2020-05 Yes 1{tbl} Take 1 Kelse y VITAMIN OR 2-10 tablet by Seyb old 10:48: mouth 20 daily ASPIRIN 81 2020-05 Yes 1{tbl} Take 1 Sumanth sey OR 2-10 tablet by Seybold 10:48: mouth 20 daily Folic 2020-05 Yes 1{tbl} Take 1 Ada Acid-Vit 2-10 tablet by Seybol d B6-Vit B12 10:48: mouth (Folbee) 20 daily 2.5-25-1 MG oral Tab B Complex 2020-05 Yes 1{tbl} Take 1 Prema ey Vitamins (B 2-10 tablet by Sey bold Complex-B12 10:48: mouth ) oral Tab 20 daily Pioglitazon 2020-05 Yes every 24 Ke lsey e HCl 2-10 hours Seybold (Actos) 45 10:48: MG oral 20 Tablet Lisinopril 2020-05 Yes every 24 Sumanth sey 40 MG oral 2-10 hours Seybold Tablet 10:48: 20 Metoprolol 2020-05 Yes Ada Succinate 2-10 Seybold 50 MG oral 10:48: Capsule ER 20 24 Hour Sprinkle [place]-3-aci 2020-05 Yes every 12 Ke lsey d Ethyl 2-10 hours Seybold Esters 1 g 10:48: oral 20 Capsule Turmeric 2020-05 Yes 1{capsu Take 1 Prema ey 500 MG oral 2-10 le} capsule by Se ybold Capsule 10:48: mouth 2 20 times daily Ezetimibe 2020-05 Yes 10mg Take 10 mg Ke lsey 10 MG oral 2-10 by mouth Seybo ld Tablet 10:48: daily 20 MULTIPLE 2020-05 Yes 1{tbl} Take 1 Kelse y VITAMIN OR 2-10 tablet by Seyb old 10:48: mouth 20 daily ASPIRIN 81 2020-05 Yes 1{tbl} Take 1 Sumanth sey OR 2-10 tablet by Seybold 10:48: mouth 20 daily Folic 2020-05 Yes 1{tbl} Take 1 Ada Acid-Vit 2-10 tablet by Seybol d B6-Vit B12 10:48: mouth (Folbee) 20 daily 2.5-25-1 MG oral Tab B Complex 2020-05 Yes 1{tbl} Take 1 Prema ey Vitamins (B 2-10 tablet by Sey bold Complex-B12 10:48: mouth ) oral Tab 20 daily Pioglitazon 2020-05 Yes every 24 Ke lsey e HCl 2-10 hours Seybold (Actos) 45 10:48: MG oral 20 Tablet Lisinopril 2020-05 Yes every 24 Sumanth sey 40 MG oral 2-10 hours Seybold Tablet 10:48: 20 Metoprolol 2020-05 Yes Ada Succinate 2-10 Seybold 50 MG oral 10:48: Capsule ER 20 24 Hour Sprinkle [place]-3-aci 2020-05 Yes every 12 Ke lsey d Ethyl 2-10 hours Seybold Esters 1 g 10:48: oral 20 Capsule Turmeric 2020-05 Yes 1{capsu Take 1 Prema ey 500 MG oral 2-10 le} capsule by Se ybold Capsule 10:48: mouth 2 20 times daily Ezetimibe 2020-05 Yes 10mg Take 10 mg Ke lsey 10 MG oral 2-10 by mouth Seybo ld Tablet 10:48: daily 20 Diclofenac 2020-05 Yes [id number] Apply 1 Ada Sodium 1 % 2-10 9108 applicatio Sey bold apply 00:00: n externally 00 topically Gel 4 times daily Diclofenac 2020-05 Yes [id number] Apply 1 Ada Sodium 1 % 2-10 9108 applicatio Sey bold apply 00:00: n externally 00 topically Gel 4 times daily Diclofenac 2020-05 Yes [id number] Apply 1 Ada Sodium 1 % 2-10 9108 applicatio Sey bold apply 00:00: n externally 00 topically Gel 4 times daily Diclofenac 2020-05 Yes [id number] Apply 1 Ada Sodium 1 % 2-10 9108 applicatio Sey bold apply 00:00: n externally 00 topically Gel 4 times daily Diclofenac 2020-05 Yes [id number] Apply 1 Ada Sodium 1 % 2-10 9108 applicatio Sey bold apply 00:00: n - externally 00 topically Exte rna Gel 4 times l daily Diclofenac 2020-05 Yes [id number] Apply 1 Ada Sodium 1 % 2-10 9108 applicatio Sey bold apply 00:00: n - externally 00 topically Exte rna Gel 4 times l daily Diclofenac 2020-05 Yes [id number] Apply 1 Ada Sodium 1 % 2-10 9108 applicatio Sey bold apply 00:00: n externally 00 topically Gel 4 times daily Diclofenac 2020-05 Yes [id number] Apply 1 Ada Sodium 1 % 2-10 9108 applicatio Sey bold apply 00:00: n externally 00 topically Gel 4 times daily Diclofenac 2020-05 Yes [id number] Apply 1 Ada Sodium 1 % 2-10 9108 applicatio Sey bold apply 00:00: n externally 00 topically Gel 4 times daily Diclofenac 2020-05 Yes [id number] Apply 1 Ada Sodium 1 % 2-10 9108 applicatio Sey bold apply 00:00: n externally 00 topically Gel 4 times daily Diclofenac 2020-05 Yes [id number] Apply 1 Ada Sodium 1 % 2-10 9108 applicatio Sey bold apply 00:00: n externally 00 topically Gel 4 times daily Diclofenac 2020-05 Yes [id number] Apply 1 Ada Sodium 1 % 2-10 9108 applicatio Sey bold apply 00:00: n externally 00 topically Gel 4 times daily MULTIPLE 2020-05 Yes 1{tbl} Take 1 Kelse y VITAMIN OR 2-07 tablet by Seyb old 08:29: mouth 01 daily ASPIRIN 81 2020-05 Yes 1{tbl} Take 1 Sumanth sey OR 2-07 tablet by Seybold 08:29: mouth 01 daily Folic 2020-05 Yes 1{tbl} Take 1 Ada Acid-Vit 2-07 tablet by Seybol d B6-Vit B12 08:29: mouth (Folbee) 01 daily 2.5-25-1 MG oral Tab B Complex 2020-05 Yes 1{tbl} Take 1 Prema ey Vitamins (B 2-07 tablet by Sey bold Complex-B12 08:29: mouth ) oral Tab 01 daily Pioglitazon 2020-05 Yes every 24 Ke lsey e HCl 2-07 hours Seybold (Actos) 45 08:29: MG oral 01 Tablet Lisinopril 2020-05 Yes every 24 Sumanth sey 40 MG oral 2-07 hours Seybold Tablet 08:29: 01 Metoprolol 2020-05 Yes Ada Succinate 2-07 Seybold 50 MG oral 08:29: Capsule ER 01 24 Hour Sprinkle [place]-3-aci 2020-05 Yes every 12 Ke lsey d Ethyl 2-07 hours Seybold Esters 1 g 08:29: oral 01 Capsule Turmeric 2020-05 Yes 1{capsu Take 1 Prema ey 500 MG oral 2-07 le} capsule by Se ybold Capsule 08:29: mouth 2 01 times daily Ezetimibe 2020-05 Yes 10mg Take 10 mg Ke lsey 10 MG oral 2-07 by mouth Seybo ld Tablet 08:29: daily 01 MULTIPLE 2020-05 Yes 1{tbl} Take 1 Kelse y VITAMIN OR 2-07 tablet by Seyb old 08:29: mouth 01 daily ASPIRIN 81 2020-05 Yes 1{tbl} Take 1 Sumanth sey OR 2-07 tablet by Seybold 08:29: mouth 01 daily Folic 2020-05 Yes 1{tbl} Take 1 Ada Acid-Vit 2-07 tablet by Seybol d B6-Vit B12 08:29: mouth (Folbee) 01 daily 2.5-25-1 MG oral Tab B Complex 2020-05 Yes 1{tbl} Take 1 Prema ey Vitamins (B 2-07 tablet by Sey bold Complex-B12 08:29: mouth ) oral Tab 01 daily Pioglitazon 2020-05 Yes every 24 Ke lsey e HCl 2-07 hours Seybold (Actos) 45 08:29: MG oral 01 Tablet Lisinopril 2020-05 Yes every 24 Sumanth sey 40 MG oral 2-07 hours Seybold Tablet 08:29: 01 Metoprolol 2020-05 Yes Ada Succinate 2-07 Seybold 50 MG oral 08:29: Capsule ER 01 24 Hour Sprinkle [place]-3-aci 2020-05 Yes every 12 Ke lsey d Ethyl 2-07 hours Seybold Esters 1 g 08:29: oral 01 Capsule Turmeric 2020-05 Yes 1{capsu Take 1 Prema ey 500 MG oral 2-07 le} capsule by Se ybold Capsule 08:29: mouth 2 01 times daily Ezetimibe 2020-05 Yes 10mg Take 10 mg Ke lsey 10 MG oral 2-07 by mouth Seybo ld Tablet 08:29: daily 01 MULTIPLE 2020-05 Yes 1{tbl} Take 1 Kelse y VITAMIN OR 1-30 tablet by Seyb old 13:20: mouth 03 daily ASPIRIN 81 2020-05 Yes 1{tbl} Take 1 Sumanth sey OR 1-30 tablet by Seybold 13:20: mouth 03 daily Folic 2020-05 Yes 1{tbl} Take 1 Ada Acid-Vit 1-30 tablet by Seybol d B6-Vit B12 13:20: mouth (Folbee) 03 daily 2.5-25-1 MG oral Tab B Complex 2020-05 Yes 1{tbl} Take 1 Prema ey Vitamins (B 1-30 tablet by Sey bold Complex-B12 13:20: mouth ) oral Tab 03 daily Pioglitazon 2020-05 Yes every 24 Ke lsey e HCl 1-30 hours Seybold (Actos) 45 13:20: MG oral 03 Tablet Lisinopril 2020-05 Yes every 24 Sumanth sey 40 MG oral 1-30 hours Seybold Tablet 13:20: 03 Metoprolol 2020-05 Yes Ada Succinate 1-30 Seybold 50 MG oral 13:20: Capsule ER 03 24 Hour Sprinkle [place]-3-aci 2020-05 Yes every 12 Ke lsey d Ethyl 1-30 hours Seybold Esters 1 g 13:20: oral 03 Capsule Turmeric 2020-05 Yes 1{capsu Take 1 Prema ey 500 MG oral 1-30 le} capsule by Se ybold Capsule 13:20: mouth 2 03 times daily Ezetimibe 2020-05 Yes 10mg Take 10 mg Ke lsey 10 MG oral 1-30 by mouth Seybo ld Tablet 13:20: daily 03 Moxifloxaci 2020-05 Yes [id number] 1[drp] Apply 1 Ada n HCl 1-30 9103 drop to Seybold (Vigamox) 00:00: eye 4 0.5 % 00 times ophthalmic daily Solution prednisoLON 2020-05 Yes [id number] Start Ada E Acetate 1-30 9103 drops one Seybo ld (Pred 00:00: day prior Forte) 1 % 00 to ophthalmic cataract Suspension surgery. Apply one drop in operative eye 4 times per day. Follow the dosing chart to taper. KETOROLAC 2020-05 Yes [id number] Start Ada TROMETHAMIN 1-30 9103 drops one Sey bold E, OPHTH, 00:00: day prior 0.5 % 00 to ophthalmic cataract Solution surgery. Apply one drop in operative eye 4 times per day. Follow the dosing chart to taper. Moxifloxaci 2020-05 Yes [id number] 1[drp] Apply 1 Ada n HCl 1-30 9103 drop to Seybold (Vigamox) 00:00: eye 4 0.5 % 00 times ophthalmic daily Solution prednisoLON 2020-05 Yes [id number] Start Ada E Acetate 1-30 9103 drops one Seybo ld (Pred 00:00: day prior Forte) 1 % 00 to ophthalmic cataract Suspension surgery. Apply one drop in operative eye 4 times per day. Follow the dosing chart to taper. KETOROLAC 2020-05 Yes [id number] Start Ada TROMETHAMIN 1-30 9103 drops one Sey bold E, OPHTH, 00:00: day prior 0.5 % 00 to ophthalmic cataract Solution surgery. Apply one drop in operative eye 4 times per day. Follow the dosing chart to taper. Moxifloxaci 2020-05 Yes [id number] 1[drp] Apply 1 Ada n HCl 1-30 9103 drop to Seybold (Vigamox) 00:00: eye 4 0.5 % 00 times ophthalmic daily Solution prednisoLON 2020-05 Yes [id number] Start Ada E Acetate 1-30 9103 drops one Seybo ld (Pred 00:00: day prior Forte) 1 % 00 to ophthalmic cataract Suspension surgery. Apply one drop in operative eye 4 times per day. Follow the dosing chart to taper. KETOROLAC 2020-05 Yes [id number] Start Ada TROMETHAMIN 1-30 9103 drops one Sey bold E, OPHTH, 00:00: day prior 0.5 % 00 to ophthalmic cataract Solution surgery. Apply one drop in operative eye 4 times per day. Follow the dosing chart to taper. Moxifloxaci 2020-05 Yes [id number] 1[drp] Apply 1 Ada n HCl 1-30 9103 drop to Seybold (Vigamox) 00:00: eye 4 0.5 % 00 times ophthalmic daily Solution prednisoLON 2020-05 Yes [id number] Start Ada E Acetate 1-30 9103 drops one Seybo ld (Pred 00:00: day prior Forte) 1 % 00 to ophthalmic cataract Suspension surgery. Apply one drop in operative eye 4 times per day. Follow the dosing chart to taper. KETOROLAC 2020-05 Yes [id number] Start Ada TROMETHAMIN 1-30 9103 drops one Sey bold E, OPHTH, 00:00: day prior 0.5 % 00 to ophthalmic cataract Solution surgery. Apply one drop in operative eye 4 times per day. Follow the dosing chart to taper. Moxifloxaci 2020-05 Yes [id number] 1[drp] Apply 1 Ada n HCl 1-30 9103 drop to Seybold (Vigamox) 00:00: eye 4 - 0.5 % 00 times Externa ophthalmic daily l Solution prednisoLON 2020-05 Yes [id number] Start Ada E Acetate 1-30 9103 drops one Seybo ld (Pred 00:00: day prior - Forte) 1 % 00 to Externa ophthalmic cataract l Suspension surgery. Apply one drop in operative eye 4 times per day. Follow the dosing chart to taper. KETOROLAC 2020-05 Yes [id number] Start Ada TROMETHAMIN 1-30 9103 drops one Sey bold E, OPHTH, 00:00: day prior - 0.5 % 00 to Externa ophthalmic cataract l Solution surgery. Apply one drop in operative eye 4 times per day. Follow the dosing chart to taper. Moxifloxaci 2020-05 Yes [id number] 1[drp] Apply 1 Ada n HCl 1-30 9103 drop to Seybold (Vigamox) 00:00: eye 4 - 0.5 % 00 times Externa ophthalmic daily l Solution prednisoLON 2020-05 Yes [id number] Start Ada E Acetate 1-30 9103 drops one Seybo ld (Pred 00:00: day prior - Forte) 1 % 00 to Externa ophthalmic cataract l Suspension surgery. Apply one drop in operative eye 4 times per day. Follow the dosing chart to taper. KETOROLAC 2020-05 Yes [id number] Start Ada TROMETHAMIN 1-30 9103 drops one Sey bold E, OPHTH, 00:00: day prior - 0.5 % 00 to Externa ophthalmic cataract l Solution surgery. Apply one drop in operative eye 4 times per day. Follow the dosing chart to taper. Moxifloxaci 2020-05 Yes [id number] 1[drp] Apply 1 Ada n HCl 1-30 9103 drop to Seybold (Vigamox) 00:00: eye 4 0.5 % 00 times ophthalmic daily Solution prednisoLON 2020-05 Yes [id number] Start Ada E Acetate 1-30 9103 drops one Seybo ld (Pred 00:00: day prior Forte) 1 % 00 to ophthalmic cataract Suspension surgery. Apply one drop in operative eye 4 times per day. Follow the dosing chart to taper. KETOROLAC 2020-05 Yes [id number] Start Ada TROMETHAMIN 1-30 9103 drops one Sey bold E, OPHTH, 00:00: day prior 0.5 % 00 to ophthalmic cataract Solution surgery. Apply one drop in operative eye 4 times per day. Follow the dosing chart to taper. Moxifloxaci 2020-05 Yes [id number] 1[drp] Apply 1 Ada n HCl 1-30 9103 drop to Seybold (Vigamox) 00:00: eye 4 0.5 % 00 times ophthalmic daily Solution prednisoLON 2020-05 Yes [id number] Start Ada E Acetate 1-30 9103 drops one Seybo ld (Pred 00:00: day prior Forte) 1 % 00 to ophthalmic cataract Suspension surgery. Apply one drop in operative eye 4 times per day. Follow the dosing chart to taper. KETOROLAC 2020-05 Yes [id number] Start Ada TROMETHAMIN 1-30 9103 drops one Sey bold E, OPHTH, 00:00: day prior 0.5 % 00 to ophthalmic cataract Solution surgery. Apply one drop in operative eye 4 times per day. Follow the dosing chart to taper. Moxifloxaci 2020-05 Yes [id number] 1[drp] Apply 1 Ada n HCl 1-30 9103 drop to Seybold (Vigamox) 00:00: eye 4 0.5 % 00 times ophthalmic daily Solution prednisoLON 2020-05 Yes [id number] Start Ada E Acetate 1-30 9103 drops one Seybo ld (Pred 00:00: day prior Forte) 1 % 00 to ophthalmic cataract Suspension surgery. Apply one drop in operative eye 4 times per day. Follow the dosing chart to taper. KETOROLAC 2020-05 Yes [id number] Start Ada TROMETHAMIN 1-30 9103 drops one Sey bold E, OPHTH, 00:00: day prior 0.5 % 00 to ophthalmic cataract Solution surgery. Apply one drop in operative eye 4 times per day. Follow the dosing chart to taper. Moxifloxaci 2020-05 Yes [id number] 1[drp] Apply 1 Ada n HCl 1-30 9103 drop to Seybold (Vigamox) 00:00: eye 4 0.5 % 00 times ophthalmic daily Solution prednisoLON 2020-05 Yes [id number] Start Ada E Acetate 1-30 9103 drops one Seybo ld (Pred 00:00: day prior Forte) 1 % 00 to ophthalmic cataract Suspension surgery. Apply one drop in operative eye 4 times per day. Follow the dosing chart to taper. KETOROLAC 2020-05 Yes [id number] Start Ada TROMETHAMIN 1-30 9103 drops one Sey bold E, OPHTH, 00:00: day prior 0.5 % 00 to ophthalmic cataract Solution surgery. Apply one drop in operative eye 4 times per day. Follow the dosing chart to taper. Moxifloxaci 2020-05 Yes [id number] 1[drp] Apply 1 Ada n HCl 1-30 9103 drop to Seybold (Vigamox) 00:00: eye 4 0.5 % 00 times ophthalmic daily Solution prednisoLON 2020-05 Yes [id number] Start Ada E Acetate 1-30 9103 drops one Seybo ld (Pred 00:00: day prior Forte) 1 % 00 to ophthalmic cataract Suspension surgery. Apply one drop in operative eye 4 times per day. Follow the dosing chart to taper. KETOROLAC 2020-05 Yes [id number] Start Ada TROMETHAMIN 1-30 9103 drops one Sey bold E, OPHTH, 00:00: day prior 0.5 % 00 to ophthalmic cataract Solution surgery. Apply one drop in operative eye 4 times per day. Follow the dosing chart to taper. Moxifloxaci 2020-05 Yes [id number] 1[drp] Apply 1 Ada n HCl 1-30 9103 drop to Seybold (Vigamox) 00:00: eye 4 0.5 % 00 times ophthalmic daily Solution prednisoLON 2020-05 Yes [id number] Start Ada E Acetate 1-30 9103 drops one Seybo ld (Pred 00:00: day prior Forte) 1 % 00 to ophthalmic cataract Suspension surgery. Apply one drop in operative eye 4 times per day. Follow the dosing chart to taper. KETOROLAC 2020-05 Yes [id number] Start Ada TROMETHAMIN 1-30 9103 drops one Sey bold E, OPHTH, 00:00: day prior 0.5 % 00 to ophthalmic cataract Solution surgery. Apply one drop in operative eye 4 times per day. Follow the dosing chart to taper. Moxifloxaci 2020-05 Yes [id number] 1[drp] Apply 1 Ada n HCl 1-30 9103 drop to Seybold (Vigamox) 00:00: eye 4 0.5 % 00 times ophthalmic daily Solution prednisoLON 2020-05 Yes [id number] Start Ada E Acetate 1-30 9103 drops one Seybo ld (Pred 00:00: day prior Forte) 1 % 00 to ophthalmic cataract Suspension surgery. Apply one drop in operative eye 4 times per day. Follow the dosing chart to taper. KETOROLAC 2020-05 Yes [id number] Start Ada TROMETHAMIN 1-30 9103 drops one Sey bold E, OPHTH, 00:00: day prior 0.5 % 00 to ophthalmic cataract Solution surgery. Apply one drop in operative eye 4 times per day. Follow the dosing chart to taper. Moxifloxaci 2020-05 Yes [id number] 1[drp] Apply 1 Ada n HCl 1-30 9103 drop to Seybold (Vigamox) 00:00: eye 4 0.5 % 00 times ophthalmic daily Solution prednisoLON 2020-05 Yes [id number] Start Ada E Acetate 1-30 9103 drops one Seybo ld (Pred 00:00: day prior Forte) 1 % 00 to ophthalmic cataract Suspension surgery. Apply one drop in operative eye 4 times per day. Follow the dosing chart to taper. KETOROLAC 2020-05 Yes [id number] Start Ada TROMETHAMIN 1-30 9103 drops one Sey bold E, OPHTH, 00:00: day prior 0.5 % 00 to ophthalmic cataract Solution surgery. Apply one drop in operative eye 4 times per day. Follow the dosing chart to taper. Moxifloxaci 2020-05 Yes [id number] 1[drp] Apply 1 Ada n HCl 1-30 9103 drop to Seybold (Vigamox) 00:00: eye 4 0.5 % 00 times ophthalmic daily Solution prednisoLON 2020-05 Yes [id number] Start Ada E Acetate 1-30 9103 drops one Seybo ld (Pred 00:00: day prior Forte) 1 % 00 to ophthalmic cataract Suspension surgery. Apply one drop in operative eye 4 times per day. Follow the dosing chart to taper. KETOROLAC 2020-05 Yes [id number] Start Ada TROMETHAMIN 1-30 9103 drops one Sey bold E, OPHTH, 00:00: day prior 0.5 % 00 to ophthalmic cataract Solution surgery. Apply one drop in operative eye 4 times per day. Follow the dosing chart to taper. Lidocaine 2020-05 Yes Ada HCl 1-11 Seybold Urethral/Mu 00:00: cosal 2 % 00 apply externally Gel Lidocaine 2020-05 Yes Ada HCl 1-11 Seybold Urethral/Mu 00:00: cosal 2 % 00 apply externally Gel Lidocaine 2020-05 Yes Ada HCl 1-11 Seybold Urethral/Mu 00:00: cosal 2 % 00 apply externally Gel Lidocaine 2020-05 Yes Ada HCl 1-11 Seybold Urethral/Mu 00:00: cosal 2 % 00 apply externally Gel Lidocaine 2020-05 Yes Ada HCl 1-11 Seybold Urethral/Mu 00:00: - cosal 2 % 00 Externa apply l externally Gel Lidocaine 2020-05 Yes Ada HCl 1-11 Seybold Urethral/Mu 00:00: - cosal 2 % 00 Externa apply l externally Gel Lidocaine 2020-05 Yes Ada HCl 1-11 Seybold Urethral/Mu 00:00: cosal 2 % 00 apply externally Gel Lidocaine 2020-05 Yes Ada HCl 1-11 Seybold Urethral/Mu 00:00: cosal 2 % 00 apply externally Gel Lidocaine 2020-05 Yes Ada HCl 1-11 Seybold Urethral/Mu 00:00: cosal 2 % 00 apply externally Gel Lidocaine 2020-05 Yes Ada HCl 1-11 Seybold Urethral/Mu 00:00: cosal 2 % 00 apply externally Gel Lidocaine 2020-05 Yes Ada HCl 1-11 Seybold Urethral/Mu 00:00: cosal 2 % 00 apply externally Gel Lidocaine 2020-05 Yes Ada HCl 1-11 Seybold Urethral/Mu 00:00: cosal 2 % 00 apply externally Gel Methylpredn 2020-05- No [id number] 40mg Ada isolone 1-10 11-10 Seybold Acetate 19:45: 20:33 (DEPO-MEDRO 00 :00 L) 40 mg/mL Methylpredn 2020-05- No [id number] 40mg 40 mg, Ada isolone 1-10 11-10 Physician Seybol d Acetate 19:45: 20:33 Administer (DEPO-MEDRO 00 :00 ed, ONCE, L) 40 mg/mL 1 dose, On Fri03/28/21 at 1345 MULTIPLE 2020-05 Yes 1{tbl} Take 1 Kelse y VITAMIN OR 1-10 tablet by Seyb old 13:14: mouth 27 daily ASPIRIN 81 2020-05 Yes 1{tbl} Take 1 Sumanth sey OR 1-10 tablet by Seybold 13:14: mouth 27 daily Folic 2020-05 Yes 1{tbl} Take 1 Ada Acid-Vit 1-10 tablet by Seybol d B6-Vit B12 13:14: mouth (Folbee) 27 daily 2.5-25-1 MG oral Tab B Complex 2020-05 Yes 1{tbl} Take 1 Prema ey Vitamins (B 1-10 tablet by Sey bold Complex-B12 13:14: mouth ) oral Tab 27 daily Pioglitazon 2020-05 Yes every 24 Ke lsey e HCl 1-10 hours Seybold (Actos) 45 13:14: MG oral 27 Tablet Lisinopril 2020-05 Yes every 24 Sumanth sey 40 MG oral 1-10 hours Seybold Tablet 13:14: 27 Metoprolol 2020-05 Yes Ada Succinate 1-10 Seybold 50 MG oral 13:14: Capsule ER 27 24 Hour Sprinkle [place]-3-aci 2020-05 Yes every 12 Ke lsey d Ethyl 1-10 hours Seybold Esters 1 g 13:14: oral 27 Capsule Turmeric 2020-05 Yes 1{capsu Take 1 Prema ey 500 MG oral 1-10 le} capsule by Se ybold Capsule 13:14: mouth 2 27 times daily Ezetimibe 2020-05 Yes 10mg Take 10 mg Ke lsey 10 MG oral 1-10 by mouth Seybo ld Tablet 13:14: daily 27 Lidocaine 5 2020-05 Yes [id number] 1{patch Place 1 Ada % apply 1-10 } patch onto Seybol d externally 00:00: the skin Patch 00 every 24 hours Remove & Discard patch within 12 hours or as directed by Lidocaine 2 2020-05 Yes [id number] Apply 1 Ada % apply 1-10 applicatio Seybol d externally 00:00: n Gel 00 topically as needed Apply twice daily to affected area Lidocaine 5 2020-05 Yes [id number] 1{patch Place 1 Ada % apply 1-10 } patch onto Seybol d externally 00:00: the skin Patch 00 every 24 hours Remove & Discard patch within 12 hours or as directed by Lidocaine 2 2020-05 Yes [id number] Apply 1 Ada % apply 1-10 applicatio Seybol d externally 00:00: n Gel 00 topically as needed Apply twice daily to affected area Lidocaine 5 2020-05 Yes [id number] 1{patch Place 1 Ada % apply 1-10 } patch onto Seybol d externally 00:00: the skin Patch 00 every 24 hours Remove & Discard patch within 12 hours or as directed by Lidocaine 2 2020-05 Yes [id number] Apply 1 Ada % apply 1-10 applicatio Seybol d externally 00:00: n Gel 00 topically as needed Apply twice daily to affected area Lidocaine 2020-05 Yes [id number] 1{patch Place 1 Ada % apply 1-10 } patch onto Seybol d externally 00:00: the skin Patch 00 every 24 hours Remove & Discard patch within 12 hours or as directed by Lidocaine 2 2020-05 Yes [id number] Apply 1 Ada % apply 1-10 applicatio Seybol d externally 00:00: n Gel 00 topically as needed Apply twice daily to affected area Lidocaine 2020-05 Yes [id number] 1{patch Place 1 Ada % apply 1-10 } patch onto Seybol d externally 00:00: the skin Patch 00 every 24 hours Remove & Discard patch within 12 hours or as directed by Lidocaine 2 2020-05 Yes [id number] Apply 1 Ada % apply 1-10 applicatio Seybol d externally 00:00: n Gel 00 topically as needed Apply twice daily to affected area Lidocaine 2020-05 Yes [id number] 1{patch Place 1 Ada % apply 1-10 } patch onto Seybol d externally 00:00: the skin Patch 00 every 24 hours Remove & Discard patch within 12 hours or as directed by Lidocaine 2020-05 Yes [id number] Apply 1 Ada % apply 1-10 applicatio Seybol d externally 00:00: n Gel 00 topically as needed Apply twice daily to affected area Lidocaine 2020-05 Yes [id number] 1{patch Place 1 Ada % apply 1-10 } patch onto Seybol d externally 00:00: the skin Patch 00 every 24 hours Remove & Discard patch within 12 hours or as directed by Lidocaine 2 2020-05 Yes [id number] Apply 1 Ada % apply 1-10 applicatio Seybol d externally 00:00: n Gel 00 topically as needed Apply twice daily to affected area Lidocaine 2020-05 Yes [id number] 1{patch Place 1 Ada % apply 1-10 } patch onto Seybol d externally 00:00: the skin Patch 00 every 24 hours Remove & Discard patch within 12 hours or as directed by Lidocaine 2 2020-05 Yes [id number] Apply 1 Ada % apply 1-10 applicatio Seybol d externally 00:00: n Gel 00 topically as needed Apply twice daily to affected area Lidocaine 2020-05 Yes [id number] 1{patch Place 1 Ada % apply 1-10 } patch onto Seybol d externally 00:00: the skin Patch 00 every 24 hours Remove & Discard patch within 12 hours or as directed by Lidocaine 2 2020-05 Yes [id number] Apply 1 Ada % apply 1-10 applicatio Seybol d externally 00:00: n Gel 00 topically as needed Apply twice daily to affected area Lidocaine 2020-05 Yes [id number] 1{patch Place 1 Ada % apply 1-10 } patch onto Seybol d externally 00:00: the skin Patch 00 every 24 hours Remove & Discard patch within 12 hours or as directed by Lidocaine 2 2020-05 Yes [id number] Apply 1 Ada % apply 1-10 applicatio Seybol d externally 00:00: n Gel 00 topically as needed Apply twice daily to affected area Lidocaine 2020-05 Yes [id number] 1{patch Place 1 Ada % apply 1-10 } patch onto Seybol d externally 00:00: the skin Patch 00 every 24 hours Remove & Discard patch within 12 hours or as directed by Lidocaine 2020-05 Yes [id number] Apply 1 Ada % apply 1-10 applicatio Seybol d externally 00:00: n Gel 00 topically as needed Apply twice daily to affected area Lidocaine 2020-05 Yes [id number] 1{patch Place 1 Ada % apply 1-10 } patch onto Seybol d externally 00:00: the skin Patch 00 every 24 hours Remove & Discard patch within 12 hours or as directed by Lidocaine 2 2020-05 Yes [id number] Apply 1 Ada % apply 1-10 applicatio Seybol d externally 00:00: n Gel 00 topically as needed Apply twice daily to affected area Lidocaine 2020-05 Yes [id number] 1{patch Place 1 Ada % apply 1-10 } patch onto Seybol d externally 00:00: the skin Patch 00 every 24 hours Remove & Discard patch within 12 hours or as directed by Lidocaine 2 2020-05 Yes [id number] Apply 1 Ada % apply 1-10 applicatio Seybol d externally 00:00: n Gel 00 topically as needed Apply twice daily to affected area Lidocaine 2020-05 Yes [id number] 1{patch Place 1 Ada % apply 1-10 } patch onto Seybol d externally 00:00: the skin Patch 00 every 24 hours Remove & Discard patch within 12 hours or as directed by Lidocaine 2 2020-05 Yes [id number] Apply 1 Ada % apply 1-10 applicatio Seybol d externally 00:00: n Gel 00 topically as needed Apply twice daily to affected area Rosuvastati 2020-05 Yes Ada n Calcium 5 1-01 Seybold MG oral 00:00: Tablet 00 Rosuvastati 2020-05 Yes Ada n Calcium 5 1-01 Seybold MG oral 00:00: Tablet 00 Rosuvastati 2020-05 Yes Ada n Calcium 5 1-01 Seybold MG oral 00:00: Tablet 00 Rosuvastati 2020-05 Yes Ada n Calcium 5 1-01 Seybold MG oral 00:00: Tablet 00 Rosuvastati 2020-05 Yes Ada n Calcium 5 1-01 Seybold MG oral 00:00: Tablet 00 Rosuvastati 2020-05 Yes Ada n Calcium 5 1-01 Seybold MG oral 00:00: Tablet 00 Rosuvastati 2020-05 Yes Ada n Calcium 5 1-01 Seybold MG oral 00:00: Tablet 00 Rosuvastati 2020-05 Yes Ada n Calcium 5 1-01 Seybold MG oral 00:00: Tablet 00 Rosuvastati 2020-05 Yes Ada n Calcium 5 1-01 Seybold MG oral 00:00: Tablet 00 Rosuvastati 2020-05 Yes Ada n Calcium 5 1-01 Seybold MG oral 00:00: Tablet 00 Fluoxetine 2020-05 Yes [id number] 40mg Take 1 K elsey HCl 40 MG 0-27 capsule Seybold oral 00:00: (40 mg Capsule 00 total) by mouth 2 times daily Aripiprazol 2020-05 Yes [id number] Take 1/2 Ada e 2 MG oral 0-27 tab po Seybol d Tablet 00:00: daily for 00 1 week than increase to 1 tab po daily for mood. Fluoxetine 2020-05 Yes [id number] 40mg Take 1 K elsey HCl 40 MG 0-27 capsule Seybold oral 00:00: (40 mg Capsule 00 total) by mouth 2 times daily Aripiprazol 2020-05 Yes [id number] Take 1/2 Ada e 2 MG oral 0-27 tab po Seybol d Tablet 00:00: daily for 00 1 week than increase to 1 tab po daily for mood. Fluoxetine 2020-05 Yes [id number] 40mg Take 1 K elsey HCl 40 MG 0-27 capsule Seybold oral 00:00: (40 mg Capsule 00 total) by mouth 2 times daily Aripiprazol 2020-05 Yes [id number] Take 1/2 Ada e 2 MG oral 0-27 tab po Seybol d Tablet 00:00: daily for 00 1 week than increase to 1 tab po daily for mood. Fluoxetine 2020-05 Yes [id number] 40mg Take 1 K elsey HCl 40 MG 0-27 capsule Seybold oral 00:00: (40 mg Capsule 00 total) by mouth 2 times daily Aripiprazol 2020-05 Yes [id number] Take 1/2 Ada e 2 MG oral 0-27 tab po Seybol d Tablet 00:00: daily for 1 week than increase to 1 tab po daily for mood. Fluoxetine 2020-05 Yes [id number] 40mg Take 1 K elsey HCl 40 MG 0-27 capsule Seybold oral 00:00: (40 mg Capsule 00 total) by mouth 2 times daily Aripiprazol 2020-05 Yes [id number] Take 1/2 Ada e 2 MG oral 0-27 tab po Seybol d Tablet 00:00: daily for 1 week than increase to 1 tab po daily for mood. Fluoxetine 2020-05 Yes [id number] 40mg Take 1 K elsey HCl 40 MG 0-27 capsule Seybold oral 00:00: (40 mg Capsule 00 total) by mouth 2 times daily Aripiprazol 2020-05 Yes [id number] Take 1/2 Ada e 2 MG oral 0-27 tab po Seybol d Tablet 00:00: daily for 1 week than increase to 1 tab po daily for mood. Fluoxetine 2020-05 Yes [id number] 40mg Take 1 K elsey HCl 40 MG 0-27 capsule Seybold oral 00:00: (40 mg Capsule 00 total) by mouth 2 times daily Aripiprazol 2020-05 Yes [id number] Take 1/2 Ada e 2 MG oral 0-27 tab po Seybol d Tablet 00:00: daily for 00 1 week than increase to 1 tab po daily for mood. Fluoxetine 2020-05 Yes [id number] 40mg Take 1 K elsey HCl 40 MG 0-27 capsule Seybold oral 00:00: (40 mg Capsule 00 total) by mouth 2 times daily Aripiprazol 2020-05 Yes [id number] Take 1/2 Ada e 2 MG oral 0-27 tab po Seybol d Tablet 00:00: daily for 00 1 week than increase to 1 tab po daily for mood. Fluoxetine 2020-05 Yes [id number] 40mg Take 1 K elsey HCl 40 MG 0-27 capsule Seybold oral 00:00: (40 mg Capsule 00 total) by mouth 2 times daily Aripiprazol 2020-05 Yes [id number] Take 1/2 Ada e 2 MG oral 0-27 tab po Seybol d Tablet 00:00: daily for 1 week than increase to 1 tab po daily for mood. Fluoxetine 2020-05 Yes [id number] 40mg Take 1 K elsey HCl 40 MG 0-27 capsule Seybold oral 00:00: (40 mg Capsule 00 total) by mouth 2 times daily Aripiprazol 2020-05 Yes [id number] Take 1/2 Ada e 2 MG oral 0-27 tab po Seybol d Tablet 00:00: daily for 1 week than increase to 1 tab po daily for mood. Fluoxetine 2020-05 Yes [id number] 40mg Take 1 K elsey HCl 40 MG 0-27 capsule Seybold oral 00:00: (40 mg Capsule 00 total) by mouth 2 times daily Aripiprazol 2020-05 Yes [id number] Take 1/2 Ada e 2 MG oral 0-27 tab po Seybol d Tablet 00:00: daily for 1 week than increase to 1 tab po daily for mood. Fluoxetine 2020-05 Yes [id number] 40mg Take 1 K elsey HCl 40 MG 0-27 capsule Seybold oral 00:00: (40 mg Capsule 00 total) by mouth 2 times daily Aripiprazol 2020-05 Yes [id number] Take 1/2 Ada e 2 MG oral 0-27 tab po Seybol d Tablet 00:00: daily for 00 1 week than increase to 1 tab po daily for mood. Fluoxetine 2020-05- No [id number] 40mg Take 1 Ada HCl 40 MG 0-27 02-01 capsule Seybol d oral 00:00: 00:00 (40 mg Capsule 00 :00 total) by mouth 2 times daily Aripiprazol 2020-05- No [id number] Take 1/2 Ada e 2 MG oral 0-27 02-01 tab po Seybo ld Tablet 00:00: 00:00 daily for 00 :00 1 week than increase to 1 tab po daily for mood. MULTIPLE 2020-05 Yes 1{tbl} Take 1 Kelse y VITAMIN OR 0-25 tablet by Seyb old 14:22: mouth 34 daily ASPIRIN 81 2020-05 Yes 1{tbl} Take 1 Sumanth sey OR 0-25 tablet by Seybold 14:22: mouth 34 daily Folic 2020-05 Yes 1{tbl} Take 1 Ada Acid-Vit 0-25 tablet by Seybol d B6-Vit B12 14:22: mouth (Folbee) 34 daily 2.5-25-1 MG oral Tab B Complex 2020-05 Yes 1{tbl} Take 1 Prema ey Vitamins (B 0-25 tablet by Sey bold Complex-B12 14:22: mouth ) oral Tab 34 daily Pioglitazon 2020-05 Yes every 24 Ke lsey e HCl 0-25 hours Seybold (Actos) 45 14:22: MG oral 34 Tablet Lisinopril 2020-05 Yes every 24 Sumanth sey 40 MG oral 0-25 hours Seybold Tablet 14:22: 34 Metoprolol 2020-05 Yes Ada Succinate 0-25 Seybold 50 MG oral 14:22: Capsule ER 34 24 Hour Sprinkle [place]-3-aci 2020-05 Yes every 12 Ke lsey d Ethyl 0-25 hours Seybold Esters 1 g 14:22: oral 34 Capsule Turmeric 2020-05 Yes 1{capsu Take 1 Prema ey 500 MG oral 0-25 le} capsule by Se ybold Capsule 14:22: mouth 2 34 times daily Ezetimibe 2020-05 Yes 10mg Take 10 mg Ke lsey 10 MG oral 0-25 by mouth Seybo ld Tablet 14:22: daily 34 MULTIPLE 2020-05 Yes 1{tbl} Take 1 Kelse y VITAMIN OR 0-25 tablet by Seyb old 14:22: mouth 34 daily ASPIRIN 81 2020-05 Yes 1{tbl} Take 1 Sumanth sey OR 0-25 tablet by Seybold 14:22: mouth 34 daily Folic 2020-05 Yes 1{tbl} Take 1 Ada Acid-Vit 0-25 tablet by Seybol d B6-Vit B12 14:22: mouth (Folbee) 34 daily 2.5-25-1 MG oral Tab B Complex 2020-05 Yes 1{tbl} Take 1 Prema ey Vitamins (B 0-25 tablet by Sey bold Complex-B12 14:22: mouth ) oral Tab 34 daily Pioglitazon 2020-05 Yes every 24 Ke lsey e HCl 0-25 hours Seybold (Actos) 45 14:22: MG oral 34 Tablet Lisinopril 2020-05 Yes every 24 Sumanth sey 40 MG oral 0-25 hours Seybold Tablet 14:22: 34 Metoprolol 2020-05 Yes Ada Succinate 0-25 Seybold 50 MG oral 14:22: Capsule ER 34 24 Hour Sprinkle [place]-3-aci 2020-05 Yes every 12 Ke lsey d Ethyl 0-25 hours Seybold Esters 1 g 14:22: oral 34 Capsule Turmeric 2020-05 Yes 1{capsu Take 1 Prema ey 500 MG oral 0-25 le} capsule by Se ybold Capsule 14:22: mouth 2 34 times daily Ezetimibe 2020-05 Yes 10mg Take 10 mg Ke lsey 10 MG oral 0-25 by mouth Seybo ld Tablet 14:22: daily 34 MULTIPLE 2020-05 Yes 1{tbl} Take 1 Kelse y VITAMIN OR 0-12 tablet by Seyb old 08:10: mouth 18 daily ASPIRIN 81 2020-05 Yes 1{tbl} Take 1 Sumanth sey OR 0-12 tablet by Seybold 08:10: mouth 18 daily Folic 2020-05 Yes 1{tbl} Take 1 Ada Acid-Vit 0-12 tablet by Seybol d B6-Vit B12 08:10: mouth (Folbee) 18 daily 2.5-25-1 MG oral Tab B Complex 2020-05 Yes 1{tbl} Take 1 Prema ey Vitamins (B 0-12 tablet by Sey bold Complex-B12 08:10: mouth ) oral Tab 18 daily Pioglitazon 2020-05 Yes every 24 Ke lsey e HCl 0-12 hours Seybold (Actos) 45 08:10: MG oral 18 Tablet Lisinopril 2020-05 Yes every 24 Sumanth sey 40 MG oral 0-12 hours Seybold Tablet 08:10: 18 Metoprolol 2020-05 Yes Ada Succinate 0-12 Seybold 50 MG oral 08:10: Capsule ER 18 24 Hour Sprinkle [place]-3-aci 2020-05 Yes every 12 Ke lsey d Ethyl 0-12 hours Seybold Esters 1 g 08:10: oral 18 Capsule Turmeric 2020-05 Yes 1{capsu Take 1 Prema ey 500 MG oral 0-12 le} capsule by Se ybold Capsule 08:10: mouth 2 18 times daily Ezetimibe 2020-05 Yes 10mg Take 10 mg Ke lsey 10 MG oral 0-12 by mouth Seybo ld Tablet 08:10: daily 18 Fluoxetine 2020-05 Yes TAKE ONE Sumanth sey HCl 40 MG 0-12 CAPSULE BY Seyb old oral 00:00: MOUTH Capsule 00 TWICE A DAY Fluoxetine 2020-05- No TAKE ONE Ke lsey HCl 40 MG 0-12 10-27 CAPSULE BY Sey bold oral 00:00: 00:00 MOUTH Capsule 00 :00 TWICE A DAY Gabapentin 2020-05 Yes [id number] 200mg Take 2 Ada 100 MG oral 0-11 capsules Seyb old Capsule 00:00: (200 mg 00 total) by mouth at bedtime Gabapentin 2020-05 Yes [id number] 200mg Take 2 Ada 100 MG oral 0-11 capsules Seyb old Capsule 00:00: (200 mg 00 total) by mouth at bedtime Gabapentin 2020-05 Yes [id number] 200mg Take 2 Ada 100 MG oral 0-11 capsules Seyb old Capsule 00:00: (200 mg 00 total) by mouth at bedtime Gabapentin 2020-05 Yes [id number] 200mg Take 2 Ada 100 MG oral 0-11 capsules Seyb old Capsule 00:00: (200 mg 00 total) by mouth at bedtime Gabapentin 2020-05 Yes [id number] 200mg Take 2 Ada 100 MG oral 0-11 capsules Seyb old Capsule 00:00: (200 mg - 00 total) by Externa mouth at l bedtime Gabapentin 2020-05 Yes [id number] 200mg Take 2 Ada 100 MG oral 0-11 capsules Seyb old Capsule 00:00: (200 mg 00 total) by mouth at bedtime Gabapentin 2020- Yes [id number] 200mg Take 2 Ada 100 MG oral 0-11 capsules Seyb old Capsule 00:00: (200 mg 00 total) by mouth at bedtime Gabapentin 2020- Yes [id number] 200mg Take 2 Ada 100 MG oral 0-11 capsules Seyb old Capsule 00:00: (200 mg 00 total) by mouth at bedtime Gabapentin 2020- Yes [id number] 200mg Take 2 Ada 100 MG oral 0-11 capsules Seyb old Capsule 00:00: (200 mg 00 total) by mouth at bedtime Gabapentin 2020- Yes [id number] 200mg Take 2 Ada 100 MG oral 0-11 capsules Seyb old Capsule 00:00: (200 mg 00 total) by mouth at bedtime Gabapentin 2020-05 Yes [id number] 200mg Take 2 Ada 100 MG oral 0-11 capsules Seyb old Capsule 00:00: (200 mg 00 total) by mouth at bedtime Gabapentin 2020-05 Yes [id number] 200mg Take 2 Ada 100 MG oral 0-11 capsules Seyb old Capsule 00:00: (200 mg 00 total) by mouth at bedtime Gabapentin 2020-05 Yes [id number] 200mg Take 2 Ada 100 MG oral 0-11 capsules Seyb old Capsule 00:00: (200 mg 00 total) by mouth at bedtime Gabapentin 2020-05 Yes [id number] 200mg Take 2 Ada 100 MG oral 0-11 capsules Seyb old Capsule 00:00: (200 mg 00 total) by mouth at bedtime Gabapentin 2020- Yes [id number] 200mg Take 2 Ada 100 MG oral 0-11 capsules Seyb old Capsule 00:00: (200 mg 00 total) by mouth at bedtime Gabapentin 2020- Yes [id number] 200mg Take 2 Ada 100 MG oral 0-11 capsules Seyb old Capsule 00:00: (200 mg 00 total) by mouth at bedtime Gabapentin 2020- Yes [id number] 200mg Take 2 Ada 100 MG oral 0-11 capsules Seyb old Capsule 00:00: (200 mg 00 total) by mouth at bedtime Gabapentin 2020- Yes [id number] 200mg Take 2 Ada 100 MG oral 0-11 capsules Seyb old Capsule 00:00: (200 mg 00 total) by mouth at bedtime Acetaminoph 2020-05 Yes [id number] 1{tbl} Q8H Take 1 Ada en-Codeine 0-06 tablet by Seyb old 300-30 MG 00:00: mouth oral Tablet 00 every 8 hours as needed for pain Acetaminoph 2020-05 Yes [id number] 1{tbl} Q8H Take 1 Ada en-Codeine 0-06 tablet by Seyb old 300-30 MG 00:00: mouth oral Tablet 00 every 8 hours as needed for pain Acetaminoph 2020-05 Yes [id number] 1{tbl} Q8H Take 1 Ada en-Codeine 0-06 tablet by Seyb old 300-30 MG 00:00: mouth oral Tablet 00 every 8 hours as needed for pain Acetaminoph 2020-05- No [id number] 1{tbl} Q8H Take 1 Ada en-Codeine 0-06 11-10 tablet by Lois valero 300-30 MG 00:00: 00:00 mouth oral Tablet 00 :00 every 8 hours as needed for pain hydroCHLORO 2020-2020- No 12.5mg Take 12.5 Ada thiazide 9-16 09-16 mg by Seybold 12.5 MG 13:43: 00:00 mouth oral 05 :00 daily Capsule Etodolac 2020-2020- No 1{tbl} Take 1 Prema ey 400 MG oral 9-16 09-16 tablet by Se ybold Tab 13:42: 00:00 mouth 15 :00 daily B Complex Yes 1{tbl} Take 1 Prema ey Vitamins (B 9-16 tablet by Sey bold Complex-B12 13:27: mouth ) oral Tab 07 daily Pioglitazon 0 Yes every 24 Ke lsey e HCl 9-16 hours Seybold (Actos) 45 13:27: MG oral 07 Tablet Lisinopril 2020-0 Yes every 24 Sumanth sey 40 MG oral 9-16 hours Seybold Tablet 13:27: 07 Metoprolol 2020-0 Yes Ada Succinate 9-16 Seybold 50 MG oral 13:27: Capsule ER 07 24 Hour Sprinkle [place]-3-aci Yes every 12 Ke lsey d Ethyl 9-16 hours Seybold Esters 1 g 13:27: oral 07 Capsule Turmeric Yes 1{capsu Take 1 Prema ey 500 MG oral 9-16 le} capsule by Se ybold Capsule 13:27: mouth 2 07 times daily Ezetimibe Yes 10mg Take 10 mg Ke lsey 10 MG oral 9-16 by mouth Seybo ld Tablet 13:27: daily 07 MULTIPLE Yes 1{tbl} Take 1 Kelse y VITAMIN OR 9-16 tablet by Seyb old 13:27: mouth 07 daily ASPIRIN 81 Yes 1{tbl} Take 1 Sumanth sey OR 9-16 tablet by Seybold 13:27: mouth 07 daily Folic Yes 1{tbl} Take 1 Ada Acid-Vit 9-16 tablet by Seybol d B6-Vit B12 13:27: mouth (Folbee) 07 daily 2.5-25-1 MG oral Tab Baclofen 5 Yes [id number] 5mg Q.5D Take 1 Ada MG oral 9-16 tablet (5 Seybold Tablet 00:00: mg total) 00 by mouth 2 times daily as needed for muscle spasms or pain Baclofen 5 Yes [id number] 5mg Q.5D Take 1 Ada MG oral 9-16 tablet (5 Seybold Tablet 00:00: mg total) 00 by mouth 2 times daily as needed for muscle spasms or pain Baclofen 5 Yes [id number] 5mg Q.5D Take 1 Ada MG oral 9-16 tablet (5 Seybold Tablet 00:00: mg total) 00 by mouth 2 times daily as needed for muscle spasms or pain Gabapentin Yes [id number] 100mg Take 1 Ada 100 MG oral 9-16 capsule Seybo ld Capsule 00:00: (100 mg 00 total) by mouth at bedtime Baclofen 5 Yes [id number] 5mg Q.5D Take 1 Daa MG oral 9-16 tablet (5 Seybold Tablet 00:00: mg total) 00 by mouth 2 times daily as needed for muscle spasms or pain Tramadol Yes [id number] 50mg Q8H Take 1 Ke lsey HCl 50 MG 9-16 tablet (50 Seyb old oral Tablet 00:00: mg total) 00 by mouth every 8 hours as needed for pain Baclofen 5 2020-0 Yes [id number] 5mg Q.5D Take 1 Ada MG oral 9-16 tablet (5 Seybold Tablet 00:00: mg total) 00 by mouth 2 times daily as needed for muscle spasms or pain Baclofen 2020-0 Yes [id number] 5mg Q.5D Take 1 Ada MG oral 9-16 tablet (5 Seybold Tablet 00:00: mg total) 00 by mouth 2 times daily as needed for muscle spasms or pain Baclofen 5 2020-0 Yes [id number] 5mg Q.5D Take 1 Ada MG oral 9-16 tablet (5 Seybold Tablet 00:00: mg total) 00 by mouth 2 times daily as needed for muscle spasms or pain Baclofen 5 2020-0 Yes [id number] 5mg Q.5D Take 1 Ada MG oral 9-16 tablet (5 Seybold Tablet 00:00: mg total) 00 by mouth 2 times daily as needed for muscle spasms or pain Baclofen 5 2020-0 Yes [id number] 5mg Q.5D Take 1 Ada MG oral 9-16 tablet (5 Seybold Tablet 00:00: mg total) 00 by mouth 2 times daily as needed for muscle spasms or pain Baclofen 5 2020-0 Yes [id number] 5mg Q.5D Take 1 Ada MG oral 9-16 tablet (5 Seybold Tablet 00:00: mg total) 00 by mouth 2 times daily as needed for muscle spasms or pain Baclofen 2020-0 Yes [id number] 5mg Q.5D Take 1 Ada MG oral 9-16 tablet (5 Seybold Tablet 00:00: mg total) 00 by mouth 2 times daily as needed for muscle spasms or pain Baclofen 5 2020-0 Yes [id number] 5mg Q.5D Take 1 Ada MG oral 9-16 tablet (5 Seybold Tablet 00:00: mg total) 00 by mouth 2 times daily as needed for muscle spasms or pain Baclofen 5 2020-0 Yes [id number] 5mg Q.5D Take 1 Ada MG oral 9-16 tablet (5 Seybold Tablet 00:00: mg total) 00 by mouth 2 times daily as needed for muscle spasms or pain Baclofen 5 2020-0 Yes [id number] 5mg Q.5D Take 1 Ada MG oral 9-16 tablet (5 Seybold Tablet 00:00: mg total) 00 by mouth 2 times daily as needed for muscle spasms or pain Baclofen 5 2020-0 Yes [id number] 5mg Q.5D Take 1 Ada MG oral 9-16 tablet (5 Seybold Tablet 00:00: mg total) 00 by mouth 2 times daily as needed for muscle spasms or pain Baclofen 5 2020-0 Yes [id number] 5mg Q.5D Take 1 Ada MG oral 9-16 tablet (5 Seybold Tablet 00:00: mg total) 00 by mouth 2 times daily as needed for muscle spasms or pain Baclofen 5 2020-0 Yes [id number] 5mg Q.5D Take 1 Ada MG oral 9-16 tablet (5 Seybold Tablet 00:00: mg total) 00 by mouth 2 times daily as needed for muscle spasms or pain Baclofen 5 2020-0 Yes [id number] 5mg Q.5D Take 1 Ada MG oral 9-16 tablet (5 Seybold Tablet 00:00: mg total) 00 by mouth 2 times daily as needed for muscle spasms or pain Amlodipine 2020-0 Yes [id number] 7.5mg Take 1.5 Ada Besylate 5 9-03 tablets Seybol d MG oral 00:00: (7.5 mg Tablet 00 total) by mouth daily Amlodipine 2020-0 Yes [id number] 7.5mg Take 1.5 Ada Besylate 5 9-03 tablets Seybol d MG oral 00:00: (7.5 mg Tablet 00 total) by mouth daily Amlodipine 2020-0 Yes [id number] 7.5mg Take 1.5 Ada Besylate 5 9-03 tablets Seybol d MG oral 00:00: (7.5 mg Tablet 00 total) by mouth daily Amlodipine 2020-0 Yes [id number] 7.5mg Take 1.5 Ada Besylate 5 9-03 tablets Seybol d MG oral 00:00: (7.5 mg Tablet 00 total) by mouth daily Amlodipine 2020-0 Yes [id number] 7.5mg Take 1.5 Ada Besylate 5 9-03 tablets Seybol d MG oral 00:00: (7.5 mg Tablet 00 total) by mouth daily Amlodipine Yes [id number] 7.5mg Take 1.5 Ada Besylate 5 9-03 tablets Seybol d MG oral 00:00: (7.5 mg Tablet 00 total) by mouth daily Amlodipine Yes [id number] 7.5mg Take 1.5 Ada Besylate 5 9-03 tablets Seybol d MG oral 00:00: (7.5 mg Tablet 00 total) by mouth daily Amlodipine Yes [id number] 7.5mg Take 1.5 Ada Besylate 5 9-03 tablets Seybol d MG oral 00:00: (7.5 mg Tablet 00 total) by mouth daily Amlodipine Yes [id number] 7.5mg Take 1.5 Ada Besylate 5 9-03 tablets Seybol d MG oral 00:00: (7.5 mg Tablet 00 total) by mouth daily Amlodipine Yes [id number] 7.5mg Take 1.5 Ada Besylate 5 9-03 tablets Seybol d MG oral 00:00: (7.5 mg Tablet 00 total) by mouth daily Amlodipine Yes [id number] 7.5mg Take 1.5 Ada Besylate 5 9-03 tablets Seybol d MG oral 00:00: (7.5 mg Tablet 00 total) by mouth daily Amlodipine Yes [id number] 7.5mg Take 1.5 Ada Besylate 5 9-03 tablets Seybol d MG oral 00:00: (7.5 mg Tablet 00 total) by mouth daily Pantoprazol Yes TAKE ONE Ke lsey e Sodium 40 7-21 TABLET BY Sey bold MG oral 00:00: MOUTH Tablet 00 EVERY DAY Delayed Response Pantoprazol Yes TAKE ONE Ke lsey e Sodium 40 7-21 TABLET BY Sey bold MG oral 00:00: MOUTH Tablet 00 EVERY DAY Delayed Response Pantoprazol Yes TAKE ONE Ke lsey e Sodium 40 7-21 TABLET BY Sey bold MG oral 00:00: MOUTH Tablet 00 EVERY DAY Delayed Response Pantoprazol 2021-0 Yes TAKE ONE Ke lsey e Sodium 40 7-21 TABLET BY Sey bold MG oral 00:00: MOUTH Tablet 00 EVERY DAY Delayed Response Pantoprazol 2020-0 Yes TAKE ONE Ke lsey e Sodium 40 7-21 TABLET BY Sey bold MG oral 00:00: MOUTH Tablet 00 EVERY DAY Delayed Response Pantoprazol 2020-0 Yes TAKE ONE Ke lsey e Sodium 40 7-21 TABLET BY Sey bold MG oral 00:00: MOUTH Tablet 00 EVERY DAY Delayed Response Pantoprazol 2020-0 Yes TAKE ONE Ke lsey e Sodium 40 7-21 TABLET BY Sey bold MG oral 00:00: MOUTH Tablet 00 EVERY DAY Delayed Response Pantoprazol 2020-0 Yes TAKE ONE Ke lsey e Sodium 40 7-21 TABLET BY Sey bold MG oral 00:00: MOUTH Tablet 00 EVERY DAY Delayed Response Pantoprazol 2020-0 Yes TAKE ONE Ke lsey e Sodium 40 7-21 TABLET BY Sey bold MG oral 00:00: MOUTH Tablet 00 EVERY DAY Delayed Response Pantoprazol 2020-0 Yes TAKE ONE Ke lsey e Sodium 40 7-21 TABLET BY Sey bold MG oral 00:00: MOUTH Tablet 00 EVERY DAY Delayed Response Pantoprazol 2020-0 Yes TAKE ONE Ke lsey e Sodium 40 7-21 TABLET BY Sey bold MG oral 00:00: MOUTH Tablet 00 EVERY DAY Delayed Response Pantoprazol 2020-0 Yes TAKE ONE Ke lsey e Sodium 40 7-21 TABLET BY Sey bold MG oral 00:00: MOUTH Tablet 00 EVERY DAY Delayed Response Pantoprazol 2020-0 Yes TAKE ONE Ke lsey e Sodium 40 7-21 TABLET BY Sey bold MG oral 00:00: MOUTH Tablet 00 EVERY DAY Delayed Response Pantoprazol 2020-0 Yes TAKE ONE Ke lsey e Sodium 40 7-21 TABLET BY Sey bold MG oral 00:00: MOUTH Tablet 00 EVERY DAY Delayed Response Pantoprazol 2020-0 Yes TAKE ONE Ke lsey e Sodium 40 7-21 TABLET BY Sey bold MG oral 00:00: MOUTH Tablet 00 EVERY DAY Delayed Response Pantoprazol 2020-0 Yes TAKE ONE Ke lsey e Sodium 40 7-21 TABLET BY Sey bold MG oral 00:00: MOUTH Tablet 00 EVERY DAY Delayed Response Allopurinol 2020-0 Yes [id number] TAKE ONE Ada 100 MG oral 7-14 TABLET BY Sey bold Tablet 00:00: MOUTH 00 EVERY DAY Allopurinol 2021-0 Yes [id number] TAKE ONE Ada 100 MG oral 7-14 TABLET BY Sey bold Tablet 00:00: MOUTH 00 EVERY DAY Allopurinol 2021-0 Yes [id number] TAKE ONE Ada 100 MG oral 7-14 TABLET BY Sey bold Tablet 00:00: MOUTH 00 EVERY DAY Allopurinol 2021-0 Yes [id number] TAKE ONE Ada 100 MG oral 7-14 TABLET BY Sey bold Tablet 00:00: MOUTH 00 EVERY DAY Allopurinol 2021-0 Yes [id number] TAKE ONE Ada 100 MG oral 7-14 TABLET BY Sey bold Tablet 00:00: MOUTH 00 EVERY DAY Allopurinol 2021-0 Yes [id number] TAKE ONE Ada 100 MG oral 7-14 TABLET BY Sey bold Tablet 00:00: MOUTH 00 EVERY DAY Allopurinol 2021-0 Yes [id number] TAKE ONE Ada 100 MG oral 7-14 TABLET BY Sey bold Tablet 00:00: MOUTH 00 EVERY DAY Allopurinol 2021-0 Yes [id number] TAKE ONE Ada 100 MG oral 7-14 TABLET BY Sey bold Tablet 00:00: MOUTH 00 EVERY DAY Allopurinol 2021-0 Yes [id number] TAKE ONE Ada 100 MG oral 7-14 TABLET BY Sey bold Tablet 00:00: MOUTH 00 EVERY DAY Allopurinol 2021-0 Yes [id number] TAKE ONE Ada 100 MG oral 7-14 TABLET BY Sey bold Tablet 00:00: MOUTH 00 EVERY DAY Allopurinol 2021-0 Yes [id number] TAKE ONE Ada 100 MG oral 7-14 TABLET BY Sey bold Tablet 00:00: MOUTH 00 EVERY DAY Allopurinol 2021-0 Yes [id number] TAKE ONE Ada 100 MG oral 7-14 TABLET BY Sey bold Tablet 00:00: MOUTH 00 EVERY DAY Allopurinol 2021-0 Yes [id number] TAKE ONE Ada 100 MG oral 7-14 TABLET BY Sey bold Tablet 00:00: MOUTH 00 EVERY DAY Allopurinol 2021-0 Yes [id number] TAKE ONE Ada 100 MG oral 7-14 TABLET BY Sey bold Tablet 00:00: MOUTH 00 EVERY DAY Allopurinol 2021-0 Yes [id number] TAKE ONE Ada 100 MG oral 7-14 TABLET BY Sey bold Tablet 00:00: MOUTH 00 EVERY DAY Allopurinol 2020-0 Yes [id number] TAKE ONE Ada 100 MG oral 7-14 TABLET BY Sey bold Tablet 00:00: MOUTH 00 EVERY DAY Allopurinol 2020-0 Yes [id number] TAKE ONE Ada 100 MG oral 7-14 TABLET BY Sey bold Tablet 00:00: MOUTH 00 EVERY DAY Allopurinol 2020-0 Yes [id number] TAKE ONE Ada 100 MG oral 7-14 TABLET BY Sey bold Tablet 00:00: MOUTH 00 EVERY DAY Lisinopril 0 2020- No Ada 20 MG oral 7-14 09-16 Seybold Tablet 00:00: 00:00 00 :00 Insulin Yes 100U Inject 100 Prema ey NPH, 6-03 units into Seybold Human,, 00:00: the skin 2 Isophane, 00 times (NovoLIN N) daily 100 UNIT/ML (with subcutaneou meals) s Suspension Insulin Yes 100U Inject 100 Prema ey NPH, 6-03 units into Seybold Human,, 00:00: the skin 2 Isophane, 00 times (NovoLIN N) daily 100 UNIT/ML (with subcutaneou meals) s Suspension Insulin Yes 100U Inject 100 Prema ey NPH, 6-03 units into Seybold Human,, 00:00: the skin 2 Isophane, 00 times (NovoLIN N) daily 100 UNIT/ML (with subcutaneou meals) s Suspension Insulin Yes 100U Inject 100 Prema ey NPH, 6-03 units into Seybold Human,, 00:00: the skin 2 Isophane, 00 times (NovoLIN N) daily 100 UNIT/ML (with subcutaneou meals) s Suspension Insulin Yes 100U Inject 100 Prema ey NPH, 6-03 units into Seybold Human,, 00:00: the skin 2 Isophane, 00 times (NovoLIN N) daily 100 UNIT/ML (with subcutaneou meals) s Suspension Insulin Yes 100U Inject 100 Prema ey NPH, 6-03 units into Seybold Human,, 00:00: the skin 2 Isophane, 00 times (NovoLIN N) daily 100 UNIT/ML (with subcutaneou meals) s Suspension Insulin 0 Yes 100U Inject 100 Prema ey NPH, 6-03 units into Seybold Human,, 00:00: the skin 2 Isophane, 00 times (NovoLIN N) daily 100 UNIT/ML (with subcutaneou meals) s Suspension Insulin 2020-0 Yes 100U Inject 100 Prema ey NPH, 6-03 units into Seybold Human,, 00:00: the skin 2 Isophane, 00 times (NovoLIN N) daily 100 UNIT/ML (with subcutaneou meals) s Suspension Insulin 0 Yes 100U Inject 100 Prema ey NPH, 6-03 units into Seybold Human,, 00:00: the skin 2 Isophane, 00 times (NovoLIN N) daily 100 UNIT/ML (with subcutaneou meals) s Suspension Insulin 0 Yes 100U Inject 100 Prema ey NPH, 6-03 units into Seybold Human,, 00:00: the skin 2 Isophane, 00 times (NovoLIN N) daily 100 UNIT/ML (with subcutaneou meals) s Suspension Insulin 0 Yes 100U Inject 100 Prema ey NPH, 6-03 units into Seybold Human,, 00:00: the skin 2 Isophane, 00 times (NovoLIN N) daily 100 UNIT/ML (with subcutaneou meals) s Suspension Insulin 0 Yes 100U Inject 100 Prema ey NPH, 6-03 units into Seybold Human,, 00:00: the skin 2 Isophane, 00 times (NovoLIN N) daily 100 UNIT/ML (with subcutaneou meals) s Suspension Insulin 0 Yes 100U Inject 100 Prema ey NPH, 6-03 units into Seybold Human,, 00:00: the skin 2 Isophane, 00 times (NovoLIN N) daily 100 UNIT/ML (with subcutaneou meals) s Suspension Insulin 2020-0 Yes 100U Inject 100 Prema ey NPH, 6-03 units into Seybold Human,, 00:00: the skin 2 Isophane, 00 times (NovoLIN N) daily 100 UNIT/ML (with subcutaneou meals) s Suspension Insulin 2020-0 Yes 100U Inject 100 Prema ey NPH, 6-03 units into Seybold Human,, 00:00: the skin 2 Isophane, 00 times (NovoLIN N) daily 100 UNIT/ML (with subcutaneou meals) s Suspension Insulin 2021-0 Yes 100U Inject 100 Prema ey NPH, 6-03 units into Seybold Human,, 00:00: the skin 2 Isophane, 00 times (NovoLIN N) daily 100 UNIT/ML (with subcutaneou meals) s Suspension Cholecalcif 2021-0 Yes 1{tbl} Take 1 Ke lsey doc 5-10 tablet by Seybold (Vitamin 00:00: mouth once D3) 1.25 MG 00 a month ( [place]) Takes bid oral Tablet Cholecalcif 2021-0 Yes 1{tbl} Take 1 Ke lsey doc 5-10 tablet by Seybold (Vitamin 00:00: mouth once D3) 1.25 MG 00 a month ( [place]) Takes bid oral Tablet Cholecalcif 2021-0 Yes 1{tbl} Take 1 Ke lsey doc 5-10 tablet by Seybold (Vitamin 00:00: mouth once D3) 1.25 MG 00 a month ( [place]) Takes bid oral Tablet Cholecalcif 2021-0 Yes 1{tbl} Take 1 Ke lsey doc 5-10 tablet by Seybold (Vitamin 00:00: mouth once D3) 1.25 MG 00 a month ( [place]) Takes bid oral Tablet Cholecalcif 2021-0 Yes 1{tbl} Take 1 Ke lsey doc 5-10 tablet by Seybold (Vitamin 00:00: mouth once D3) 1.25 MG 00 a month ( [place]) Takes bid oral Tablet Cholecalcif 2021-0 Yes 1{tbl} Take 1 Ke lsey doc 5-10 tablet by Seybold (Vitamin 00:00: mouth once - D3) 1.25 MG 00 a month Exter na ( [place]) Takes bid l oral Tablet Cholecalcif 2021-0 Yes 1{tbl} Take 1 Ke lsey doc 5-10 tablet by Seybold (Vitamin 00:00: mouth once - D3) 1.25 MG 00 a month Exter na ( [place]) Takes bid l oral Tablet Cholecalcif 2021-0 Yes 1{tbl} Take 1 Ke lsey doc 5-10 tablet by Seybold (Vitamin 00:00: mouth once D3) 1.25 MG 00 a month ( [place]) Takes bid oral Tablet Cholecalcif 2021-0 Yes 1{tbl} Take 1 Ke lsey doc 5-10 tablet by Seybold (Vitamin 00:00: mouth once D3) 1.25 MG 00 a month ( [place]) Takes bid oral Tablet Cholecalcif 2021-0 Yes 1{tbl} Take 1 Ke lsey doc 5-10 tablet by Seybold (Vitamin 00:00: mouth once D3) 1.25 MG 00 a month ( [place]) Takes bid oral Tablet Cholecalcif 2021-0 Yes 1{tbl} Take 1 Ke lsey doc 5-10 tablet by Seybold (Vitamin 00:00: mouth once D3) 1.25 MG 00 a month ( [place]) Takes bid oral Tablet Cholecalcif 2021-0 Yes 1{tbl} Take 1 Ke lsey doc 5-10 tablet by Seybold (Vitamin 00:00: mouth once D3) 1.25 MG 00 a month ( [place]) Takes bid oral Tablet Cholecalcif 2021-0 Yes 1{tbl} Take 1 Ke lsey doc 5-10 tablet by Seybold (Vitamin 00:00: mouth once D3) 1.25 MG 00 a month ( [place]) Takes bid oral Tablet Cholecalcif 2021-0 Yes 1{tbl} Take 1 Ke lsey doc 5-10 tablet by Seybold (Vitamin 00:00: mouth once D3) 1.25 MG 00 a month ( [place]) Takes bid oral Tablet Cholecalcif 2021-0 Yes 1{tbl} Take 1 Ke lsey doc 5-10 tablet by Seybold (Vitamin 00:00: mouth once D3) 1.25 MG 00 a month ( [place]) Takes bid oral Tablet Cholecalcif 2021-0 Yes 1{tbl} Take 1 Ke lsey doc 5-10 tablet by Seybold (Vitamin 00:00: mouth once D3) 1.25 MG 00 a month ( [place]) Takes bid oral Tablet Cholecalcif 2021-0 Yes 1{tbl} Take 1 Ke lsey doc 5-10 tablet by Seybold (Vitamin 00:00: mouth once D3) 1.25 MG 00 a month ( [place]) Takes bid oral Tablet Cholecalcif 2021-0 Yes 1{tbl} Take 1 Ke lsey doc 5-10 tablet by ybold (Vitamin 00:00: mouth once D3) 1.25 MG 00 a month ( [place]) Takes bid oral Tablet Cholecalcif 2021-0 Yes 1{tbl} Take 1 Ke lsey doc 5-10 tablet by ybold (Vitamin 00:00: mouth once D3) 1.25 MG 00 a month ( [place]) Takes bid oral Tablet Cholecalcif 2021-0 Yes 1{tbl} Take 1 Ke lsey doc 5-10 tablet by ybold (Vitamin 00:00: mouth once D3) 1.25 MG 00 a month ( [place]) Takes bid oral Tablet Tamsulosin 2021-0 Yes .4mg Take 1 Kelse y HCl 0.4 MG 5-07 capsule Seybol d oral 00:00: (0.4 mg Capsule 00 total) by mouth daily Tamsulosin 2021-0 Yes .4mg Take 1 Kelse y HCl 0.4 MG 5-07 capsule Seybol d oral 00:00: (0.4 mg Capsule 00 total) by mouth daily Tamsulosin 2021-0 Yes .4mg Take 1 Kelse y HCl 0.4 MG 5-07 capsule Seybol d oral 00:00: (0.4 mg Capsule 00 total) by mouth daily Tamsulosin 2021-0 Yes .4mg Take 1 Kelse y HCl 0.4 MG 5-07 capsule Seybol d oral 00:00: (0.4 mg Capsule 00 total) by mouth daily Tamsulosin 2021-0 Yes .4mg Take 1 Kelse y HCl 0.4 MG 5-07 capsule Seybol d oral 00:00: (0.4 mg Capsule 00 total) by mouth daily Tamsulosin 2021-0 Yes .4mg Take 1 Kelse y HCl 0.4 MG 5-07 capsule Seybol d oral 00:00: (0.4 mg - Capsule 00 total) by Externa mouth l daily Tamsulosin 2021-0 Yes .4mg Take 1 Kelse y HCl 0.4 MG 5-07 capsule Seybol d oral 00:00: (0.4 mg Capsule 00 total) by mouth daily Tamsulosin 2021-0 Yes .4mg Take 1 Kelse y HCl 0.4 MG 5-07 capsule Seybol d oral 00:00: (0.4 mg Capsule 00 total) by mouth daily Tamsulosin 2021-0 Yes .4mg Take 1 Kelse y HCl 0.4 MG 5-07 capsule Seybol d oral 00:00: (0.4 mg Capsule 00 total) by mouth daily Tamsulosin 2021-0 Yes .4mg Take 1 Kelse y HCl 0.4 MG 5-07 capsule Seybol d oral 00:00: (0.4 mg Capsule 00 total) by mouth daily Tamsulosin 2021-0 Yes .4mg Take 1 Kelse y HCl 0.4 MG 5-07 capsule Seybol d oral 00:00: (0.4 mg Capsule 00 total) by mouth daily Tamsulosin 2021-0 Yes .4mg Take 1 Kelse y HCl 0.4 MG 5-07 capsule Seybol d oral 00:00: (0.4 mg Capsule 00 total) by mouth daily Tamsulosin 1-0 Yes .4mg Take 1 Kelse y HCl 0.4 MG 5-07 capsule Seybol d oral 00:00: (0.4 mg Capsule 00 total) by mouth daily Tamsulosin 2021-0 Yes .4mg Take 1 Kelse y HCl 0.4 MG 5-07 capsule Seybol d oral 00:00: (0.4 mg Capsule 00 total) by mouth daily Tamsulosin 2021-0 Yes .4mg Take 1 Kelse y HCl 0.4 MG 5-07 capsule Seybol d oral 00:00: (0.4 mg Capsule 00 total) by mouth daily Tamsulosin 2021-0 Yes .4mg Take 1 Kelse y HCl 0.4 MG 5-07 capsule Seybol d oral 00:00: (0.4 mg Capsule 00 total) by mouth daily Tamsulosin 2021-0 Yes .4mg Take 1 Kelse y HCl 0.4 MG 5-07 capsule Seybol d oral 00:00: (0.4 mg Capsule 00 total) by mouth daily Tamsulosin 2021-0 Yes .4mg Take 1 Kelse y HCl 0.4 MG 5-07 capsule Seybol d oral 00:00: (0.4 mg Capsule 00 total) by mouth daily Tamsulosin Yes .4mg Take 1 Kelse y HCl 0.4 MG 5- capsule Seybol d oral 00:00: (0.4 mg Capsule 00 total) by mouth daily multivitami Yes 1{tbl} Take [address] [facility] [address] [facility] ([place]) - tablet by [facility] es 2.5-25-1 mg 19:29: mouth. Medi jossue Tab tablet 09 [facility] etodolac Yes 1{tbl} Take [facility] -[facility] 400 MG 19:29: mouth. Medical tablet 09 [place] cholecalcif Yes [id number] Take [facility] doc, 09-08 50,000 [facility] vitamin D3, 19:29: Units by [place] dicwillem 1,250 mcg 09 [facility] (50,000 every 30 unit) Tab (thirty) days. exenatide 2020- No 1{tbl} Take [address] [facility] ([place]etta) 5 -09-08 tablet by Frank es mcg/dose 19:29: 00:00 mouth. Medica l (250 09 :00 Center mcg/mL) 1.2 mL PnIj fenofibric 2020- No 1{tbl} Take [address] [facility] [address] [facility] acid, -08 09- tablet by [facility] choline, 19:29: 00:00 mouth. Medica l (Trilipix) 09 :00 Center 135 mg capsule glimepiride 2020- No 1{tbl} Take [address] [facility] (AMARYL) 4 -08 09- tablet by Frank es MG tablet 19:29: 00:00 mouth. Medic al 09 :00 Center pantoprazol Yes 40mg QD Take [address] [facility] e 4-23 by mouth [facility] (PROTONIX) 16:43: daily. Medic al 40 MG 43 Center tablet cyanocobala Yes 100ug QD Take [address] min 4-23 mcg by [facility] (VITAMIN 16:43: mouth Medical B-12) 100 43 daily. Center MCG tablet aspirin 81 Yes 81mg QD Take [address] MG EC 4-23 by mouth [facility] tablet 16:43: every Medical 43 evening. [place] clopidogrel Yes 75mg QD Take [address] [facility] (PLAVIX) 75 4-23 by mouth [facility] mg tablet 16:43: daily. Medica l 43 Center hydrochloro Yes 12.5mg QD Take 12.[address] [facility] thiazide 4-23 mg by [facility] (HYDRODIURI 16:43: mouth Medic al L) 25 MG 43 daily . [place] tablet insulin NPH Yes 150U Inject [address] [facility] 100 unit/mL 4-23 Units [facility] (3 mL) InPn 16:43: subcutaneo Medical 43 usly 2 Center (two) times daily before meals . metoprolol Yes 50mg QD Take [address] (LOPRESSOR) 4-23 by mouth Luke s 50 MG 16:43: daily. Medical tablet 43 [place] FLUoxetine Yes 40mg QD Take [address] (PROZAC) 40 4-23 by mouth Luke s MG capsule 16:43: daily. Medic al 43 [place] omega-3 2020- No 1{capsu QD Take [address] [facility] fatty -09-08 le} capsule by [facility] acids-vitam 16:43: 00:00 mouth Medi jossue in E 1,000 42 :00 daily. Center mg Cap lisinopril 2020- No 40mg Q.5D Take [address] [facility] (PRINIVIL,Z 09-08 by mouth 2 L ukes ESTRIL) 40 16:43: 00:00 (two) Medic al MG tablet 36 :00 times Center daily. FLUTICASONE 2020- No Inhale by [facility] /SALMETEROL 09-08 mouth via Aminta kes (ADVAIR HFA 16:43: 00:00 inhaler. M edical INHL) 17 :00 [place] betamethaso 2020- No 1{appli Q.5D Apply [address] [facility] [address] ne, 09-08 cation} applicatio [facility] augmented, 16:43: 00:00 n Medica l (DIPROLENE) 01 :[address] 0.05 % 2 (two) ointment times daily. cholecalcif 2020- No 5000U QD Take 5,[address] doc, 4-23 04-23 Units by [facility] vitamin D3, 16:42: 00:00 mouth Medi jossue 5,000 unit 55 :00 daily. Center Tab hydroCHLORO Yes [id number] 25mg Take 1 [facility] thiazide 25 4-19 tablet (25 Se ybold MG oral 00:00: mg total) Tablet 00 by mouth daily Metoprolol Yes [id number] 50mg Take 1 K elsey Tartrate 50 4-19 tablet (50 Se ybold MG oral 00:00: mg total) Tablet 00 by mouth daily Clopidogrel Yes 75mg Take 1 Prema ey Bisulfate 4-19 tablet (75 Seyb old 75 MG oral 00:00: mg total) Tablet 00 by mouth daily hydroCHLORO Yes [id number] 25mg Take 1 [facility] thiazide 25 4-19 tablet (25 Se ybold MG oral 00:00: mg total) Tablet 00 by mouth daily Metoprolol Yes [id number] 50mg Take 1 K elsey Tartrate 50 4-19 tablet (50 Se ybold MG oral 00:00: mg total) Tablet 00 by mouth daily Clopidogrel Yes 75mg Take 1 Prema ey Bisulfate 4-19 tablet (75 Seyb old 75 MG oral 00:00: mg total) Tablet 00 by mouth daily hydroCHLORO Yes [id number] 25mg Take 1 [facility] thiazide 25 4-19 tablet (25 Se ybold MG oral 00:00: mg total) Tablet 00 by mouth daily Metoprolol Yes [id number] 50mg Take 1 K elsey Tartrate 50 4-19 tablet (50 Se ybold MG oral 00:00: mg total) Tablet 00 by mouth daily Clopidogrel Yes 75mg Take 1 Prema ey Bisulfate 4-19 tablet (75 Seyb old 75 MG oral 00:00: mg total) Tablet 00 by mouth daily hydroCHLORO Yes [id number] 25mg Take 1 Ada thiazide 25 4-19 tablet (25 Se ybold MG oral 00:00: mg total) Tablet 00 by mouth daily Metoprolol Yes [id number] 50mg Take 1 K elsey Tartrate 50 4-19 tablet (50 Se ybold MG oral 00:00: mg total) Tablet 00 by mouth daily Clopidogrel Yes 75mg Take 1 Prema ey Bisulfate 4-19 tablet (75 Seyb old 75 MG oral 00:00: mg total) Tablet 00 by mouth daily hydroCHLORO Yes [id number] 25mg Take 1 Ada thiazide 25 4-19 tablet (25 Se ybold MG oral 00:00: mg total) Tablet 00 by mouth daily Metoprolol Yes [id number] 50mg Take 1 K elsey Tartrate 50 4-19 tablet (50 Se ybold MG oral 00:00: mg total) Tablet 00 by mouth daily Clopidogrel Yes 75mg Take 1 Prema ey Bisulfate 4-19 tablet (75 Seyb old 75 MG oral 00:00: mg total) Tablet 00 by mouth daily hydroCHLORO Yes [id number] 25mg Take 1 [facility] thiazide 25 4-19 tablet (25 Se ybold MG oral 00:00: mg total) Tablet 00 by mouth daily Metoprolol Yes [id number] 50mg Take 1 K elsey Tartrate 50 4-19 tablet (50 Se ybold MG oral 00:00: mg total) Tablet 00 by mouth daily Clopidogrel Yes 75mg Take 1 Prema ey Bisulfate 4-19 tablet (75 Seyb old 75 MG oral 00:00: mg total) Tablet 00 by mouth daily hydroCHLORO Yes [id number] 25mg Take 1 Ada thiazide 25 4-19 tablet (25 Se ybold MG oral 00:00: mg total) Tablet 00 by mouth daily Metoprolol Yes [id number] 50mg Take 1 K elsey Tartrate 50 4-19 tablet (50 Se ybold MG oral 00:00: mg total) Tablet 00 by mouth daily Clopidogrel Yes 75mg Take 1 Prema ey Bisulfate 4-19 tablet (75 Seyb old 75 MG oral 00:00: mg total) Tablet 00 by mouth daily hydroCHLORO Yes [id number] 25mg Take 1 [facility] thiazide 25 4-19 tablet (25 Se ybold MG oral 00:00: mg total) Tablet 00 by mouth daily Metoprolol Yes [id number] 50mg Take 1 K elsey Tartrate 50 4-19 tablet (50 Se ybold MG oral 00:00: mg total) Tablet 00 by mouth daily Clopidogrel Yes 75mg Take 1 Prema ey Bisulfate 4-19 tablet (75 Seyb old 75 MG oral 00:00: mg total) Tablet 00 by mouth daily hydroCHLORO Yes [id number] 25mg Take 1 Ada thiazide 25 4-19 tablet (25 Se ybold MG oral 00:00: mg total) Tablet 00 by mouth daily Metoprolol Yes [id number] 50mg Take 1 K elsey Tartrate 50 4-19 tablet (50 Se ybold MG oral 00:00: mg total) Tablet 00 by mouth daily Clopidogrel Yes 75mg Take 1 Prema ey Bisulfate 4-19 tablet (75 Seyb old 75 MG oral 00:00: mg total) Tablet 00 by mouth daily hydroCHLORO Yes [id number] 25mg Take 1 Ada thiazide 25 4-19 tablet (25 Se ybold MG oral 00:00: mg total) Tablet 00 by mouth daily Metoprolol Yes [id number] 50mg Take 1 K elsey Tartrate 50 4-19 tablet (50 Se ybold MG oral 00:00: mg total) Tablet 00 by mouth daily Clopidogrel Yes 75mg Take 1 Prema ey Bisulfate 4-19 tablet (75 Seyb old 75 MG oral 00:00: mg total) Tablet 00 by mouth daily hydroCHLORO Yes [id number] 25mg Take 1 Ada thiazide 25 4-19 tablet (25 Se ybold MG oral 00:00: mg total) Tablet 00 by mouth daily Metoprolol Yes [id number] 50mg Take 1 K elsey Tartrate 50 4-19 tablet (50 Se ybold MG oral 00:00: mg total) Tablet 00 by mouth daily Clopidogrel Yes 75mg Take 1 Prema ey Bisulfate 4-19 tablet (75 Seyb old 75 MG oral 00:00: mg total) Tablet 00 by mouth daily hydroCHLORO Yes [id number] 25mg Take 1 Ada thiazide 25 4-19 tablet (25 Se ybold MG oral 00:00: mg total) Tablet 00 by mouth daily Metoprolol Yes [id number] 50mg Take 1 K elsey Tartrate 50 4-19 tablet (50 Se ybold MG oral 00:00: mg total) Tablet 00 by mouth daily Clopidogrel Yes 75mg Take 1 Prema ey Bisulfate 4-19 tablet (75 Seyb old 75 MG oral 00:00: mg total) Tablet 00 by mouth daily hydroCHLORO Yes [id number] 25mg Take 1 Ada thiazide 25 4-19 tablet (25 Se ybold MG oral 00:00: mg total) Tablet 00 by mouth daily Metoprolol Yes [id number] 50mg Take 1 K elsey Tartrate 50 4-19 tablet (50 Se ybold MG oral 00:00: mg total) Tablet 00 by mouth daily Clopidogrel Yes 75mg Take 1 Prema ey Bisulfate 4-19 tablet (75 Seyb old 75 MG oral 00:00: mg total) Tablet 00 by mouth daily hydroCHLORO Yes [id number] 25mg Take 1 Ada thiazide 25 4-19 tablet (25 Se ybold MG oral 00:00: mg total) Tablet 00 by mouth daily Metoprolol Yes [id number] 50mg Take 1 K elsey Tartrate 50 4-19 tablet (50 Se ybold MG oral 00:00: mg total) Tablet 00 by mouth daily Clopidogrel Yes 75mg Take 1 Prema ey Bisulfate 4-19 tablet (75 Seyb old 75 MG oral 00:00: mg total) Tablet 00 by mouth daily ezetimibe 2020- [facility] ([facility] 00 :00 [place] lisinopriL 2020- No [facility] (PRINIVIL,Z -04 09-23 [facility] ESTRIL) 20 00:00: 00:00 Medica l MG tablet 00 :00 [place] amoxicillin Yes [facility] -cl[facility]ulanat 4-15 [facility] (AUGMENTIN) 00 [facility] 875-125 mg per tablet AZITHROmyci Yes [facility] n 4-15 [facility] (ZITHROMAX) 00:00: Medica l 250 MG 00 Center tablet benzonatate Yes 100mg Take [address] [facility] (TESSALON) 4-15 [facility] by [facility] 100 MG 00:00: mouth. Medical capsule 00 [place] amoxicillin 2022- [facility]: [facility]:00 Medical (AUGMENTIN) 00 :00 [place] 875-125 mg per tablet AZITHROmyci 2022- No [facility] (ZITHROMAX) 00:00: 00:00 Medic al 250 MG 00 :00 [place] tablet benzonatate 2022- No 100mg Take [address] [facility] (TESSALON) 15 03-09 mg by [facility] 100 MG 00:00: 00:00 mouth. Medical capsule 00 :00 [place] Benzonatate 2020- No [id number] 100mg [id number] Take 1 [facility] (Tessalon -15 -16 [id number] capsule Seybold Perles) 100 00:00: 00:00 3D (100 mg MG oral 00 :00 total) by Capsule mouth 3 times daily as needed lovastatin Yes [facility] (MEVACOR) 4-06 [facility] 40 MG 00:00: Medical tablet 00 [place] lovastatin 2022- No [facility] (MEVACOR) 4-06 03-09 [facility] 40 MG 00:00: 00:00 Medical tablet 00 :00 [place] amLODIPine Yes [facility] (NORVASC) 5 4-05 [facility] tablet 00:00: Medical 00 [place] amLODIPine [address] [facility] (NORVASC) 5 4-05 [facility] MG tablet 00:00: Medical 00 [place] allopurinoL [address] [facility] (ZYLOPRIM) 1-29 [facility] 100 MG 00:00: Medical tablet 00 [place] allopurinoL [address] [facility] (ZYLOPRIM) 1-29 [facility] 100 MG 00:00: Medical tablet 00 [place] gabapentin 2019-05 Yes 100mg Take [address] [facility] [address] [facility] (NEURONTIN) 0-19 [facility] by [facility] 100 MG 00:00: mouth. Medical capsule 00 [place] gabapentin 2019-05- No 100mg Take [address] (NEURONTIN) 0-19 03-09 [facility] by [facility] 100 MG 00:00: 00:00 mouth. Medical capsule 00 :00 [place] Gabapentin 2019-05- No [id number] 100mg Take 1 [facility] 100 MG oral [id number] capsule Se ybold Cap 00:00: 00:00 (100 mg 00 :00 total) by mouth at bedtime FLUTICASONE 2020-1 Yes [id number] 2{spray Use 2 [facility] PROPIONATE, 0-12 } sprays in Sey bold NASAL, 50 00:00: each MCG/ACT 00 nostril nasal daily Suspension FLUTICASONE 2020-1 Yes [id number] 2{spray Use 2 [facility] PROPIONATE, 0-12 } sprays in Sey bold NASAL, 50 00:00: each MCG/ACT 00 nostril nasal daily Suspension FLUTICASONE 2020-1 Yes [id number] 2{spray Use 2 [facility] PROPIONATE, 0-12 } sprays in Sey bold NASAL, 50 00:00: each MCG/ACT 00 nostril nasal daily Suspension FLUTICASONE 2020-1 Yes [id number] 2{spray Use 2 [facility] PROPIONATE, 0-12 } sprays in Sey bold NASAL, 50 00:00: each MCG/ACT 00 nostril nasal daily Suspension FLUTICASONE 2020-1 Yes [id number] 2{spray Use 2 [facility] PROPIONATE, 0-12 } sprays in Sey bold NASAL, 50 00:00: each MCG/ACT 00 nostril nasal daily Suspension FLUTICASONE 2020-1 Yes [id number] 2{spray Use 2 [facility] PROPIONATE, 0-12 } sprays in Sey bold NASAL, 50 00:00: each - MCG/ACT 00 nostril Externa nasal daily l Suspension FLUTICASONE 2020-1 Yes [id number] 2{spray Use 2 [facility] PROPIONATE, 0-12 } sprays in Sey bold NASAL, 50 00:00: each - MCG/ACT 00 nostril Externa nasal daily l Suspension FLUTICASONE 2020-1 Yes [id number] 2{spray Use 2 [facility] PROPIONATE, 0-12 } sprays in Sey bold NASAL, 50 00:00: each MCG/ACT 00 nostril nasal daily Suspension FLUTICASONE 2020-1 Yes [id number] 2{spray Use 2 [facility] PROPIONATE, 0-12 } sprays in Sey bold NASAL, 50 00:00: each MCG/ACT 00 nostril nasal daily Suspension FLUTICASONE 2020-1 Yes [id number] 2{spray Use 2 [facility] PROPIONATE, 0-12 } sprays in Sey bold NASAL, 50 00:00: each MCG/ACT 00 nostril nasal daily Suspension FLUTICASONE 2020-1 Yes [id number] 2{spray Use 2 [facility] PROPIONATE, 0-12 } sprays in Sey bold NASAL, 50 00:00: each MCG/ACT 00 nostril nasal daily Suspension FLUTICASONE 2020-1 Yes [id number] 2{spray Use 2 [facility] PROPIONATE, 0-12 } sprays in Sey bold NASAL, 50 00:00: each MCG/ACT 00 nostril nasal daily Suspension FLUTICASONE 2020-1 Yes [id number] 2{spray Use 2 [facility] PROPIONATE, 0-12 } sprays in Sey bold NASAL, 50 00:00: each MCG/ACT 00 nostril nasal daily Suspension FLUTICASONE 2020-1 Yes [id number] 2{spray Use 2 [facility] PROPIONATE, 0-12 } sprays in Sey bold NASAL, 50 00:00: each MCG/ACT 00 nostril nasal daily Suspension FLUTICASONE 2020-1 Yes [id number] 2{spray Use 2 [facility] PROPIONATE, 0-12 } sprays in Sey bold NASAL, 50 00:00: each MCG/ACT 00 nostril nasal daily Suspension FLUTICASONE 2020-1 Yes [id number] 2{spray Use 2 [facility] PROPIONATE, 0-12 } sprays in Sey bold NASAL, 50 00:00: each MCG/ACT 00 nostril nasal daily Suspension FLUTICASONE 2020-1 Yes [id number] 2{spray Use 2 [facility] PROPIONATE, 0-12 } sprays in Sey bold NASAL, 50 00:00: each MCG/ACT 00 nostril nasal daily Suspension FLUTICASONE 2020-1 Yes [id number] 2{spray Use 2 [facility] PROPIONATE, 0-12 } sprays in Sey bold NASAL, 50 00:00: each MCG/ACT 00 nostril nasal daily Suspension FLUTICASONE 2020-1 Yes [id number] 2{spray Use 2 [facility] PROPIONATE, 0-12 } sprays in Sey bold NASAL, 50 00:00: each MCG/ACT 00 nostril nasal daily Suspension FLUTICASONE 2020-1 Yes [id number] 2{spray Use 2 [facility] PROPIONATE, 0-12 } sprays in Sey bold NASAL, 50 00:00: each MCG/ACT 00 nostril nasal daily Suspension fluticasone 2020-1 Yes 2{spray [address] [facility] propionate 0-12 } by [facility]al [facility] (FLONASE) 00:00: route. Medica l 50 00 Center mcg/actuati on nasal spray fluticasone 2020-1 Yes 2{spray [address] [facility] propionate 0-12 } by Nasal [facility] (FLONASE) 00:00: route. Medica l 50 00 Center mcg/actuati on nasal spray Clonidine 2020-0 Yes [id number] Take 1 [facility] HCl 0.1 MG 7-20 tablet PRN Sey bold oral Tab 00:00: TID for 00 SBP >160 mmHg Clonidine 2020-0 Yes [id number] Take 1 [facility] HCl 0.1 MG 7-20 tablet PRN Sey bold oral Tab 00:00: TID for 00 SBP >160 mmHg Clonidine 2020-0 Yes [id number] Take 1 [facility] HCl 0.1 MG 7-20 tablet PRN Sey bold oral Tab 00:00: TID for 00 SBP >160 mmHg Clonidine 2020-0 Yes [id number] Take 1 [facility] HCl 0.1 MG 7-20 tablet PRN Sey bold oral Tab 00:00: TID for 00 SBP >160 mmHg Clonidine 2020-0 Yes [id number] Take 1 [facility] HCl 0.1 MG 7-20 tablet PRN Sey bold oral Tab 00:00: TID for - 00 SBP >160 Externa mmHg l Clonidine 2020-0 Yes [id number] Take 1 Ke [facility] HCl 0.1 MG 7-20 tablet PRN Sey bold oral Tab 00:00: TID for - 00 SBP >160 Externa mmHg l Clonidine 2020-0 Yes [id number] Take 1 Ke lsey HCl 0.1 MG 7-20 tablet PRN Sey bold oral Tab 00:00: TID for 00 SBP >160 mmHg Clonidine 2020-0 Yes [id number] Take 1 Ke [facility] HCl 0.1 MG 7-20 tablet PRN Sey bold oral Tab 00:00: TID for 00 SBP >160 mmHg Clonidine 2020-0 Yes [id number] Take 1 Ke [facility] HCl 0.1 MG 7-20 tablet PRN Sey bold oral Tab 00:00: TID for 00 SBP >160 mmHg Clonidine 2020-0 Yes [id number] Take 1 Ke [facility] HCl 0.1 MG 7-20 tablet PRN Sey bold oral Tab 00:00: TID for 00 SBP >160 mmHg Clonidine 2020-0 Yes [id number] Take 1 Ke lsey HCl 0.1 MG 7-20 tablet PRN Sey bold oral Tab 00:00: TID for 00 SBP >160 mmHg Clonidine 2020-0 Yes [id number] Take 1 Ke lsey HCl 0.1 MG 7-20 tablet PRN Sey bold oral Tab 00:00: TID for 00 SBP >160 mmHg Clonidine 2020-0 Yes [id number] Take 1 Ke lsey HCl 0.1 MG 7-20 tablet PRN Sey bold oral Tab 00:00: TID for 00 SBP >160 mmHg Clonidine 2020-0 Yes [id number] Take 1 Ke lsey HCl 0.1 MG 7-20 tablet PRN Sey bold oral Tab 00:00: TID for 00 SBP >160 mmHg Clonidine 2020-0 Yes [id number] Take 1 Ke lsey HCl 0.1 MG 7-20 tablet PRN Sey bold oral Tab 00:00: TID for 00 SBP >160 mmHg Clonidine 2020-0 Yes [id number] Take 1 Ke [facility] HCl 0.1 MG 7-20 tablet PRN Sey bold oral Tab 00:00: TID for 00 SBP >160 mmHg Clonidine 2020-0 Yes [id number] Take 1 Ke [facility] HCl 0.1 MG 7-20 tablet PRN Sey bold oral Tab 00:00: TID for 00 SBP >160 mmHg Clonidine 2020-0 Yes [id number] Take 1 Ke lsey HCl 0.1 MG 7-20 tablet PRN Sey bold oral Tab 00:00: TID for 00 SBP >160 mmHg Clonidine 2020-0 Yes [id number] Take 1 Ke l[facility] HCl 0.1 MG 7-20 tablet PRN Sey bold oral Tab 00:00: TID for 00 SBP >160 mmHg Clonidine 2020-0 Yes [id number] Take 1 [facility] HCl 0.1 MG 7-20 tablet PRN Sey bold oral Tab 00:00: TID for 00 SBP >160 mmHg cloNIDine 2020-0 Yes Take [address] [facility] HCL 7-20 tablet [facility]N [facility] (CATAPRES) 00:00: TID for Medi jossue 0.1 MG 00 SBP >160 Center tablet mmHg cloNIDine 2020-0 Yes Take [address] [facility] HCL 7-20 tablet [facility]N [facility] (CATAPRES) 00:00: TID for Medi jossue 0.1 MG 00 SBP >160 Center tablet mmHg atorvastati 2019-0 Yes 20mg QD Take [address] [facility] (LIPITOR) 7-26 by mouth [facility] 20 MG 20:08: daily. Medical tablet 00 Center Glucose 2012-05 Yes USE TWICE [facility] Blood (ONE 1-06 A DAY to [employer] TOUCH ULTRA 00:00: check TEST) 00 blood STRP sugar/250. 00 Glucose 2012-05 Yes USE TWICE [facility] Blood (ONE 1-06 A DAY to [employer] TOUCH ULTRA 00:00: check TEST) 00 blood STRP sugar/250. 00 Glucose 2012-05 Yes USE TWICE [facility] Blood (ONE 1-06 A DAY to Seybo ld TOUCH ULTRA 00:00: check TEST) 00 blood STRP sugar/250. 00 Glucose 2012-05 Yes USE TWICE [facility] Blood (ONE 1-06 A DAY to [employer] TOUCH ULTRA 00:00: check TEST) 00 blood STRP sugar/250. 00 Glucose 2012-05 Yes USE TWICE [facility] Blood (ONE 1-06 A DAY to Seybo ld TOUCH ULTRA 00:00: check - TEST) 00 blood Externa STRP sugar/250. l 00 Glucose 2012-05 Yes USE TWICE [facility] Blood (ONE 1-06 A DAY to Seybo ld TOUCH ULTRA 00:00: check - TEST) 00 blood Externa STRP sugar/250. l 00 Glucose 2012-05 Yes USE TWICE [facility] Blood (ONE 1-06 A DAY to Seybo ld TOUCH ULTRA 00:00: check TEST) 00 blood STRP sugar/250. 00 Glucose 2012-05 Yes USE TWICE [facility] Blood (ONE 1-06 A DAY to Seybo ld TOUCH ULTRA 00:00: check TEST) 00 blood STRP sugar/250. 00 Glucose 2012-05 Yes USE TWICE [facility] Blood (ONE 1-06 A DAY to Seybo ld TOUCH ULTRA 00:00: check TEST) 00 blood STRP sugar/250. 00 Glucose 2012-05 Yes USE TWICE [facility] Blood (ONE 1-06 A DAY to Seybo ld TOUCH ULTRA 00:00: check TEST) 00 blood STRP sugar/250. 00 Glucose 2012-05 Yes USE TWICE [facility] Blood (ONE 1-06 A DAY to Seybo ld TOUCH ULTRA 00:00: check TEST) 00 blood STRP sugar/250. 00 Glucose 2012-05 Yes USE TWICE [facility] Blood (ONE 1-06 A DAY to Seybo ld TOUCH ULTRA 00:00: check TEST) 00 blood STRP sugar/250. 00 Glucose 2012-05 Yes USE TWICE [facility] Blood (ONE 1-06 A DAY to Seybo ld TOUCH ULTRA 00:00: check TEST) 00 blood STRP sugar/250. 00 Glucose 2012-05 Yes USE TWICE [facility] Blood (ONE 1-06 A DAY to Seybo ld TOUCH ULTRA 00:00: check TEST) 00 blood STRP sugar/250. 00 Glucose 2012-05 Yes USE TWICE [facility] Blood (ONE 1-06 A DAY to Seybo ld TOUCH ULTRA 00:00: check TEST) 00 blood STRP sugar/250. 00 Glucose 2012-05 Yes USE TWICE [facility] Blood (ONE 1-06 A DAY to Seybo ld TOUCH ULTRA 00:00: check TEST) 00 blood STRP sugar/250. 00 Glucose 2012-05 Yes USE TWICE [facility] Blood (ONE 1-06 A DAY to Seybo ld TOUCH ULTRA 00:00: check TEST) 00 blood STRP sugar/250. 00 Glucose 2012-05 Yes USE TWICE [facility] Blood (ONE 1-06 A DAY to Seybo ld TOUCH ULTRA 00:00: check TEST) 00 blood STRP sugar/250. 00 Glucose 2012-05 Yes USE TWICE [facility] Blood (ONE 1-06 A DAY to Seybo ld TOUCH ULTRA 00:00: check TEST) 00 blood STRP sugar/250. 00 Glucose 2012-05 Yes USE TWICE [facility] Blood (ONE 1-06 A DAY to Seybo ld TOUCH ULTRA 00:00: check TEST) 00 blood STRP sugar/250. 00 Immunizations Ordered Immunization Filled Immunization Date Status Commen ts Source Name Name COVID-19 BIVALENT 2022-05-16 Completed Ada Becerra BOOSTER VACCINE 00:00:00 - Externa l MODERNA COVID-19 BIVALENT 2022-05-16 Completed Ada Becerra VACCINE MODERNA 00:00:00 - Externa l Influenza Virus 2022-03-30 Completed Ada Coronado ybold Vaccine, age 6 months 00:00:00 - E xternal and up Pneumococcal Vaccine, 2022-03-30 Completed Sumanth coronadoy Seybold Conjugate 20 00:00:00 - External Influenza vaccine, 2022-03-30 Completed Ada Coronadoybold quadrivalent, 00:00:00 - External adjuvanted Influenza Virus 2022-03-30 Completed Ada Coronado ybold Vaccine, age 6 months 00:00:00 - E xternal and up Pneumococcal Vaccine, 2022-03-30 Completed Sumanth rausch Seybold Conjugate 20 00:00:00 - External Influenza vaccine, 2022-03-30 Completed Ada Hamold quadrivalent, 00:00:00 - External adjuvanted Covid-19 Vaccine 2021-12-17 Completed Ada mane Moderna (Spikevax), 00:00:00 - Ext ernal Mrna-lnp, Marcelino Protein, Pf Covid-19 Vaccine 2021-12-17 Completed Ada mane Moderna (Spikevax), 00:00:00 - Ext ernal Mrna-lnp, Marcelino Protein, Pf Shingles IM 2021-03-31 Completed Ada Seybol d (Shingrix) 00:00:00 Shingles IM 2021-03-31 Completed Ada Coronadoybol d (Shingrix) 00:00:00 Shingles IM 2021-03-31 Completed Ada Seybol d (Shingrix) 00:00:00 Shingles IM 2021-03-31 Completed Ada Seybol d (Shingrix) 00:00:00 Shingles IM 2021-03-31 Completed Ada Seybol d (Shingrix) 00:00:00 Shingles IM 2021-03-31 Completed Ada Seybol d (Shingrix) 00:00:00 Shingles IM 2021-03-31 Completed Ada Seybol d (Shingrix) 00:00:00 Shingles IM 2021-03-31 Completed Ada Seybol d (Shingrix) 00:00:00 Shingles IM 2021-03-31 Completed Ada Seybol d (Shingrix) 00:00:00 Shingles IM 2021-03-31 Completed Ada Seybol d (Shingrix) 00:00:00 - External Shingles IM 2021-03-31 Completed Ada Seybol d (Shingrix) 00:00:00 - External Shingles IM 2021-03-31 Completed Ada Seybol d (Shingrix) 00:00:00 - External Shingles IM 2021-03-31 Completed Ada Seybol d (Shingrix) 00:00:00 - External Shingles IM 2021-03-31 Completed Ada Seybol d (Shingrix) 00:00:00 Shingles IM 2021-03-31 Completed Ada Seybol d (Shingrix) 00:00:00 Shingles IM 2021-03-31 Completed Ada Seybol d (Shingrix) 00:00:00 Shingles IM 2021-03-31 Completed Ada Seybol d (Shingrix) 00:00:00 Shingles IM 2021-03-31 Completed Ada Seybol d (Shingrix) 00:00:00 Shingles IM 2021-03-31 Completed Ada Seybol d (Shingrix) 00:00:00 Shingles IM 2021-03-31 Completed Ada Seybol d (Shingrix) 00:00:00 Influenza Virus 2021-02-01 Completed Ada Coronado ybold Vaccine, 00:00:00 Quadrivalent, High Dose, Age 65 And Up Covid-19 Vaccine 2021-02-01 Completed Ada mane (Moderna), Mrna-lnp, 00:00:00 Marcelino Protein, Pf, 100 Mcg/0.5ml,IM Influenza Virus 2021-02-01 Completed Ada Coronado ybold Vaccine, 00:00:00 Quadrivalent, High Dose, Age 65 And Up Covid-19 Vaccine 2021-02-01 Completed Ada mane (Moderna), Mrna-lnp, 00:00:00 Marcelino Protein, Pf, 100 Mcg/0.5ml,IM Influenza Virus 2021-02-01 Completed Ada Coronado ybold Vaccine, 00:00:00 Quadrivalent, High Dose, Age 65 And Up Covid-19 Vaccine 2021-02-01 Completed Ada S eybold Moderna (Spikevax), 00:00:00 Mrna-lnp, Marcelino Protein, Pf Influenza Virus 2021-02-01 Completed Ada Coronado ybold Vaccine, 00:00:00 Quadrivalent, High Dose, Age 65 And Up Covid-19 Vaccine 2021-02-01 Completed Ada muñozbold Moderna (Spikevax), 00:00:00 Mrna-lnp, Marcelino Protein, Pf Influenza Virus 2021-02-01 Completed Ada Coronado ybold Vaccine, 00:00:00 - External Quadrivalent, High Dose, Age 65 And Up Covid-19 Vaccine 2021-02-01 Completed Ada rowleyld Moderna (Spikevax), 00:00:00 - Ext ernal Mrna-lnp, Marcelino Protein, Pf Influenza Virus 2021-02-01 Completed Ada Coronado ybold Vaccine, 00:00:00 Quadrivalent, High Dose, Age 65 And Up Covid-19 Vaccine 2021-02-01 Completed Ada rowleyld (Moderna), Mrna-lnp, 00:00:00 Marcelino Protein, Pf, 100 Mcg/0.5ml,IM Influenza Virus 2021-02-01 Completed Ada Coronado ybold Vaccine, 00:00:00 - External Quadrivalent, High Dose, Age 65 And Up Covid-19 Vaccine 2021-02-01 Completed Ada mane Moderna (Spikevax), 00:00:00 - Ext ernal Mrna-lnp, Marcelino Protein, Pf Influenza Virus 2021-02-01 Completed Ada Coronado ybold Vaccine, 00:00:00 Quadrivalent, High Dose, Age 65 And Up Covid-19 Vaccine 2021-02-01 Completed Ada muñozbold (Moderna), Mrna-lnp, 00:00:00 Marceilno Protein, Pf, 100 Mcg/0.5ml,IM Influenza Virus 2021-02-01 Completed Ada Coronado ybold Vaccine, 00:00:00 Quadrivalent, High Dose, Age 65 And Up Covid-19 Vaccine 2021-02-01 Completed Ada S eybold (Moderna), Mrna-lnp, 00:00:00 Marcelino Protein, Pf, 100 Mcg/0.5ml,IM Influenza Virus 2021-02-01 Completed Ada Coronado ybold Vaccine, 00:00:00 Quadrivalent, High Dose, Age 65 And Up Covid-19 Vaccine 2021-02-01 Completed Ada S eybold (Moderna), Mrna-lnp, 00:00:00 Marcelino Protein, Pf, 100 Mcg/0.5ml,IM Influenza Virus 2021-02-01 Completed Ada Se ybold Vaccine, 00:00:00 Quadrivalent, High Dose, Age 65 And Up Covid-19 Vaccine 2021-02-01 Completed Ada S eybold (Moderna), Mrna-lnp, 00:00:00 Marcelino Protein, Pf, 100 Mcg/0.5ml,IM Influenza Virus 2021-02-01 Completed Ada Se ybold Vaccine, 00:00:00 Quadrivalent, High Dose, Age 65 And Up Covid-19 Vaccine 2021-02-01 Completed Ada S eybold (Moderna), Mrna-lnp, 00:00:00 Marcelino Protein, Pf, 100 Mcg/0.5ml,IM Influenza Virus 2021-02-01 Completed Ada Se ybold Vaccine, 00:00:00 Quadrivalent, High Dose, Age 65 And Up Covid-19 Vaccine 2021-02-01 Completed Ada S eybold (Moderna), Mrna-lnp, 00:00:00 Marcelino Protein, Pf, 100 Mcg/0.5ml,IM Influenza Virus 2021-02-01 Completed Ada Se ybold Vaccine, 00:00:00 Quadrivalent, High Dose, Age 65 And Up Covid-19 Vaccine 2021-02-01 Completed Ada S eybold (Moderna), Mrna-lnp, 00:00:00 Marcelino Protein, Pf, 100 Mcg/0.5ml,IM Influenza Virus 2021-02-01 Completed Ada Se ybold Vaccine, 00:00:00 Quadrivalent, High Dose, Age 65 And Up Covid-19 Vaccine 2021-02-01 Completed Ada S eybold (Moderna), Mrna-lnp, 00:00:00 Marcelino Protein, Pf, 100 Mcg/0.5ml,IM Influenza Virus 2021-02-01 Completed Ada Se ybold Vaccine, 00:00:00 Quadrivalent, High Dose, Age 65 And Up Covid-19 Vaccine 2021-02-01 Completed Ada S eybold (Moderna), Mrna-lnp, 00:00:00 Marcelino Protein, Pf, 100 Mcg/0.5ml,IM Influenza Virus 2021-02-01 Completed Ada Coronado ybold Vaccine, 00:00:00 Quadrivalent, High Dose, Age 65 And Up Covid-19 Vaccine 2021-02-01 Completed Ada S eybold (Moderna), Mrna-lnp, 00:00:00 Marcelino Protein, Pf, 100 Mcg/0.5ml,IM Influenza Virus 2021-02-01 Completed Ada Se ybold Vaccine, 00:00:00 Quadrivalent, High Dose, Age 65 And Up Covid-19 Vaccine 2021-02-01 Completed Ada S eybold (Moderna), Mrna-lnp, 00:00:00 Marcelino Protein, Pf, 100 Mcg/0.5ml,IM Influenza Virus 2021-02-01 Completed Ada Coronado ybold Vaccine, 00:00:00 Quadrivalent, High Dose, Age 65 And Up Covid-19 Vaccine 2021-02-01 Completed Ada Cleopatra eybold (Moderna), Mrna-lnp, 00:00:00 Marcelino Protein, Pf, 100 Mcg/0.5ml,IM Influenza Virus 2021-02-01 Completed Ada Coronado ybold Vaccine, 00:00:00 Quadrivalent, High Dose, Age 65 And Up Covid-19 Vaccine 2021-02-01 Completed Ada Whelan eybold (Moderna), Mrna-lnp, 00:00:00 Marcelino Protein, Pf, 100 Mcg/0.5ml,IM Covid-19 Vaccine 2020-06-27 Completed Ada S eybold (Moderna), Mrna-lnp, 00:00:00 Marcelino Protein, Pf, 100 Mcg/0.5ml,IM Covid-19 Vaccine 2020-06-27 Completed Ada S eybold (Moderna), Mrna-lnp, 00:00:00 Marcelino Protein, Pf, 100 Mcg/0.5ml,IM Covid-19 Vaccine 2020-06-27 Completed Ada Whelan eybold Moderna (Spikevax), 00:00:00 Mrna-lnp, Marcelino Protein, Pf Covid-19 Vaccine 2020-06-27 Completed Ada Whelan eybold Moderna (Spikevax), 00:00:00 Mrna-lnp, Marcelino Protein, Pf Covid-19 Vaccine 2020-06-27 Completed Ada Whelan eybold Moderna (Spikevax), 00:00:00 - Ext ernal Mrna-lnp, Marcelino Protein, Pf Covid-19 Vaccine 2020-06-27 Completed Ada S eybold (Moderna), Mrna-lnp, 00:00:00 Marcelino Protein, Pf, 100 Mcg/0.5ml,IM Covid-19 Vaccine 2020-06-27 Completed Ada S eybold Moderna (Spikevax), 00:00:00 - Ext ernal Mrna-lnp, Marcelino Protein, Pf Covid-19 Vaccine 2020-06-27 Completed Ada S eybold (Moderna), Mrna-lnp, 00:00:00 Marcelino Protein, Pf, 100 Mcg/0.5ml,IM Covid-19 Vaccine 2020-06-27 Completed Ada S eybold (Moderna), Mrna-lnp, 00:00:00 Marcelino Protein, Pf, 100 Mcg/0.5ml,IM Covid-19 Vaccine 2020-06-27 Completed Ada S eybold (Moderna), Mrna-lnp, 00:00:00 Marcelino Protein, Pf, 100 Mcg/0.5ml,IM Covid-19 Vaccine 2020-06-27 Completed Ada S eybold (Moderna), Mrna-lnp, 00:00:00 Marcelino Protein, Pf, 100 Mcg/0.5ml,IM Covid-19 Vaccine 2020-06-27 Completed Ada S eybold (Moderna), Mrna-lnp, 00:00:00 Marcelino Protein, Pf, 100 Mcg/0.5ml,IM Covid-19 Vaccine 2020-06-27 Completed Ada S eybold (Moderna), Mrna-lnp, 00:00:00 Marcelino Protein, Pf, 100 Mcg/0.5ml,IM Covid-19 Vaccine 2020-06-27 Completed Ada S eybold (Moderna), Mrna-lnp, 00:00:00 Marcelino Protein, Pf, 100 Mcg/0.5ml,IM Covid-19 Vaccine 2020-06-27 Completed Ada S eybold (Moderna), Mrna-lnp, 00:00:00 Marcelino Protein, Pf, 100 Mcg/0.5ml,IM Covid-19 Vaccine 2020-06-27 Completed Ada Whelan eybold (Moderna), Mrna-lnp, 00:00:00 Marcelino Protein, Pf, 100 Mcg/0.5ml,IM Covid-19 Vaccine 2020-06-27 Completed Ada S eybold (Moderna), Mrna-lnp, 00:00:00 Marcelino Protein, Pf, 100 Mcg/0.5ml,IM Covid-19 Vaccine 2020-06-27 Completed Ada S eybold (Moderna), Mrna-lnp, 00:00:00 Marcelino Protein, Pf, 100 Mcg/0.5ml,IM Covid-19 Vaccine 2020-06-27 Completed Ada S eybold (Moderna), Mrna-lnp, 00:00:00 Marcelino Protein, Pf, 100 Mcg/0.5ml,IM Covid-19 Vaccine 2020-06-27 Completed Ada S eybold (Moderna), Mrna-lnp, 00:00:00 Marcelino Protein, Pf, 100 Mcg/0.5ml,IM Covid-19 Vaccine 2020-05-30 Completed Ada Whelan eybold (Moderna), Mrna-lnp, 00:00:00 Marcelino Protein, Pf, 100 Mcg/0.5ml,IM Covid-19 Vaccine 2020-05-30 Completed Ada S eybold (Moderna), Mrna-lnp, 00:00:00 Marcelino Protein, Pf, 100 Mcg/0.5ml,IM Covid-19 Vaccine 2020-05-30 Completed Ada S eybold Moderna (Spikevax), 00:00:00 Mrna-lnp, Marcelino Protein, Pf Covid-19 Vaccine 2020-05-30 Completed Ada S eybold Moderna (Spikevax), 00:00:00 Mrna-lnp, Marcelino Protein, Pf Covid-19 Vaccine 2020-05-30 Completed Ada S eybold Moderna (Spikevax), 00:00:00 - Ext ernal Mrna-lnp, Marcelino Protein, Pf Covid-19 Vaccine 2020-05-30 Completed Ada S eybold (Moderna), Mrna-lnp, 00:00:00 Marcelino Protein, Pf, 100 Mcg/0.5ml,IM Covid-19 Vaccine 2020-05-30 Completed Ada muñozbomark Moderna (Spikevax), 00:00:00 - Ext ernal Mrna-lnp, Marcelino Protein, Pf Covid-19 Vaccine 2020-05-30 Completed Ada Whelan eybold (Moderna), Mrna-lnp, 00:00:00 Marcelino Protein, Pf, 100 Mcg/0.5ml,IM Covid-19 Vaccine 2020-05-30 Completed Ada S eybold (Moderna), Mrna-lnp, 00:00:00 Marcelino Protein, Pf, 100 Mcg/0.5ml,IM Covid-19 Vaccine 2020-05-30 Completed Ada muñozbold (Moderna), Mrna-lnp, 00:00:00 Marcelino Protein, Pf, 100 Mcg/0.5ml,IM Covid-19 Vaccine 2020-05-30 Completed Ada muñozbold (Moderna), Mrna-lnp, 00:00:00 Marcelino Protein, Pf, 100 Mcg/0.5ml,IM Covid-19 Vaccine 2020-05-30 Completed Ada Whelan eybold (Moderna), Mrna-lnp, 00:00:00 Marcelino Protein, Pf, 100 Mcg/0.5ml,IM Covid-19 Vaccine 2020-05-30 Completed Ada Whelan eybold (Moderna), Mrna-lnp, 00:00:00 Marcelino Protein, Pf, 100 Mcg/0.5ml,IM Covid-19 Vaccine 2020-05-30 Completed Ada S eybold (Moderna), Mrna-lnp, 00:00:00 Marcelino Protein, Pf, 100 Mcg/0.5ml,IM Covid-19 Vaccine 2020-05-30 Completed Ada Whelan eybold (Moderna), Mrna-lnp, 00:00:00 Marcelino Protein, Pf, 100 Mcg/0.5ml,IM Covid-19 Vaccine 2020-05-30 Completed Ada S eybold (Moderna), Mrna-lnp, 00:00:00 Marcelino Protein, Pf, 100 Mcg/0.5ml,IM Covid-19 Vaccine 2020-05-30 Completed Ada S eybold (Moderna), Mrna-lnp, 00:00:00 Marcelino Protein, Pf, 100 Mcg/0.5ml,IM Covid-19 Vaccine 2020-05-30 Completed Ada S eybold (Moderna), Mrna-lnp, 00:00:00 Marcelino Protein, Pf, 100 Mcg/0.5ml,IM Covid-19 Vaccine 2020-05-30 Completed Ada S eybold (Moderna), Mrna-lnp, 00:00:00 Marcelino Protein, Pf, 100 Mcg/0.5ml,IM Covid-19 Vaccine 2020-05-30 Completed Ada S eybold (Moderna), Mrna-lnp, 00:00:00 Marcelino Protein, Pf, 100 Mcg/0.5ml,IM Influenza Virus 2020-02-28 Completed Ada Se ybold Vaccine, 00:00:00 Quadrivalent, High Dose, Age 65 And Up Influenza Virus 2020-02-28 Completed Ada Se ybold Vaccine, 00:00:00 Quadrivalent, High Dose, Age 65 And Up Influenza Virus 2020-02-28 Completed Ada Se ybold Vaccine, 00:00:00 Quadrivalent, High Dose, Age 65 And Up Influenza Virus 2020-02-28 Completed Ada Se ybold Vaccine, 00:00:00 Quadrivalent, High Dose, Age 65 And Up Influenza Virus 2020-02-28 Completed Ada Se ybold Vaccine, 00:00:00 - External Quadrivalent, High Dose, Age 65 And Up Influenza Virus 2020-02-28 Completed Ada Se ybold Vaccine, 00:00:00 Quadrivalent, High Dose, Age 65 And Up Influenza Virus 2020-02-28 Completed Ada Se ybold Vaccine, 00:00:00 - External Quadrivalent, High Dose, Age 65 And Up Influenza Virus 2020-02-28 Completed Ada Se ybold Vaccine, 00:00:00 Quadrivalent, High Dose, Age 65 And Up Influenza Virus 2020-02-28 Completed Ada Se ybold Vaccine, 00:00:00 Quadrivalent, High Dose, Age 65 And Up Influenza Virus 2020-02-28 Completed Ada Se ybold Vaccine, 00:00:00 Quadrivalent, High Dose, Age 65 And Up Influenza Virus 2020-02-28 Completed Ada Se ybold Vaccine, 00:00:00 Quadrivalent, High Dose, Age 65 And Up Influenza Virus 2020-02-28 Completed Ada Se ybold Vaccine, 00:00:00 Quadrivalent, High Dose, Age 65 And Up Influenza Virus 2020-02-28 Completed Ada Se ybold Vaccine, 00:00:00 Quadrivalent, High Dose, Age 65 And Up Influenza Virus 2020-02-28 Completed Ada Se ybold Vaccine, 00:00:00 Quadrivalent, High Dose, Age 65 And Up Influenza Virus 2020-02-28 Completed Ada Se ybold Vaccine, 00:00:00 Quadrivalent, High Dose, Age 65 And Up Influenza Virus 2020-02-28 Completed Ada Se ybold Vaccine, 00:00:00 Quadrivalent, High Dose, Age 65 And Up Influenza Virus 2020-02-28 Completed Ada Se ybold Vaccine, 00:00:00 Quadrivalent, High Dose, Age 65 And Up Influenza Virus 2020-02-28 Completed Ada Se ybold Vaccine, 00:00:00 Quadrivalent, High Dose, Age 65 And Up Influenza Virus 2020-02-28 Completed Ada Se ybold Vaccine, 00:00:00 Quadrivalent, High Dose, Age 65 And Up Influenza Virus 2020-02-28 Completed Ada Se ybold Vaccine, 00:00:00 Quadrivalent, High Dose, Age 65 And Up Shingles IM 2019-07-12 Completed Ada Seybol d (Shingrix) 00:00:00 Pneumococcal Vaccine, 2019-07-12 Completed Sumanth sey Seybold Polysaccharide 00:00:00 Shingles IM 2019-07-12 Completed Ada Seybol d (Shingrix) 00:00:00 Pneumococcal Vaccine, 2019-07-12 Completed Sumanth sey Seybold Polysaccharide 00:00:00 Shingles IM 2019-07-12 Completed Ada Seybol d (Shingrix) 00:00:00 Pneumococcal Vaccine, 2019-07-12 Completed Sumanth sey Seybold Polysaccharide 00:00:00 Shingles IM 2019-07-12 Completed Ada Seybol d (Shingrix) 00:00:00 Pneumococcal Vaccine, 2019-07-12 Completed Sumanth sey Seybold Polysaccharide 00:00:00 Shingles IM 2019-07-12 Completed Daa Seybol d (Shingrix) 00:00:00 - External Pneumococcal Vaccine, 2019-07-12 Completed Sumanth sey Seybold Polysaccharide 00:00:00 - External Shingles IM 2019-07-12 Completed Ada Seybol d (Shingrix) 00:00:00 Pneumococcal Vaccine, 2019-07-12 Completed Sumanth sey Seybold Polysaccharide 00:00:00 Shingles IM 2019-07-12 Completed Ada Seybol d (Shingrix) 00:00:00 - External Pneumococcal Vaccine, 2019-07-12 Completed Sumanth sey Seybold Polysaccharide 00:00:00 - External Shingles IM 2019-07-12 Completed Ada Seybol d (Shingrix) 00:00:00 Pneumococcal Vaccine, 2019-07-12 Completed Sumanth sey Seybold Polysaccharide 00:00:00 Shingles IM 2019-07-12 Completed Ada Seybol d (Shingrix) 00:00:00 Pneumococcal Vaccine, 2019-07-12 Completed Sumanth sey Seybold Polysaccharide 00:00:00 Shingles IM 2019-07-12 Completed Ada Seybol d (Shingrix) 00:00:00 Pneumococcal Vaccine, 2019-07-12 Completed Sumanth sey Seybold Polysaccharide 00:00:00 Shingles IM 2019-07-12 Completed Ada Seybol d (Shingrix) 00:00:00 Pneumococcal Vaccine, 2019-07-12 Completed Sumanth sey Seybold Polysaccharide 00:00:00 Shingles IM 2019-07-12 Completed Ada Seybol d (Shingrix) 00:00:00 Pneumococcal Vaccine, 2019-07-12 Completed Sumanth sey Seybold Polysaccharide 00:00:00 Shingles IM 2019-07-12 Completed Ada Seybol d (Shingrix) 00:00:00 Pneumococcal Vaccine, 2019-07-12 Completed Sumanth sey Seybold Polysaccharide 00:00:00 Shingles IM 2019-07-12 Completed Ada Seybol d (Shingrix) 00:00:00 Pneumococcal Vaccine, 2019-07-12 Completed Sumanth sey Seybold Polysaccharide 00:00:00 Shingles IM 2019-07-12 Completed Ada Seybol d (Shingrix) 00:00:00 Pneumococcal Vaccine, 2019-07-12 Completed Sumanth sey Seybold Polysaccharide 00:00:00 Shingles IM 2019-07-12 Completed Ada Seybol d (Shingrix) 00:00:00 Pneumococcal Vaccine, 2019-07-12 Completed Sumanth sey Seybold Polysaccharide 00:00:00 Shingles IM 2019-07-12 Completed Ada Seybol d (Shingrix) 00:00:00 Pneumococcal Vaccine, 2019-07-12 Completed Sumanth sey Seybold Polysaccharide 00:00:00 Shingles IM 2019-07-12 Completed Ada Seybol d (Shingrix) 00:00:00 Pneumococcal Vaccine, 2019-07-12 Completed Sumanth sey Seybold Polysaccharide 00:00:00 Shingles IM 2019-07-12 Completed Ada Seybol d (Shingrix) 00:00:00 Pneumococcal Vaccine, 2019-07-12 Completed Sumanth sey Seybold Polysaccharide 00:00:00 Shingles IM 2019-07-12 Completed Ada Seybol d (Shingrix) 00:00:00 Pneumococcal Vaccine, 2019-07-12 Completed Sumanth sey Seybold Polysaccharide 00:00:00 Influenza Virus 2019-06-03 Completed Ada Se ybold Vaccine, High Dose, 00:00:00 Age 65 And Up Influenza Virus 2019-06-03 Completed Ada Se ybold Vaccine, High Dose, 00:00:00 Age 65 And Up Influenza Virus 2019-06-03 Completed Ada Se ybold Vaccine, High Dose, 00:00:00 Age 65 And Up Influenza Virus 2019-06-03 Completed Ada Se ybold Vaccine, High Dose, 00:00:00 Age 65 And Up Influenza Virus 2019-06-03 Completed Ada Se ybold Vaccine, High Dose, 00:00:00 - Ext ernal Age 65 And Up Influenza Virus 2019-06-03 Completed Ada Se ybold Vaccine, High Dose, 00:00:00 Age 65 And Up Influenza Virus 2019-06-03 Completed Ada Se ybold Vaccine, High Dose, 00:00:00 - Ext ernal Age 65 And Up Influenza Virus 2019-06-03 Completed Ada Se ybold Vaccine, High Dose, 00:00:00 Age 65 And Up Influenza Virus 2019-06-03 Completed Ada Se ybold Vaccine, High Dose, 00:00:00 Age 65 And Up Influenza Virus 2019-06-03 Completed Ada Se ybold Vaccine, High Dose, 00:00:00 Age 65 And Up Influenza Virus 2019-06-03 Completed Ada Se ybold Vaccine, High Dose, 00:00:00 Age 65 And Up Influenza Virus 2019-06-03 Completed Ada Se ybold Vaccine, High Dose, 00:00:00 Age 65 And Up Influenza Virus 2019-06-03 Completed Ada Se ybold Vaccine, High Dose, 00:00:00 Age 65 And Up Influenza Virus 2019-06-03 Completed Ada Se ybold Vaccine, High Dose, 00:00:00 Age 65 And Up Influenza Virus 2019-06-03 Completed Ada Se ybold Vaccine, High Dose, 00:00:00 Age 65 And Up Influenza Virus 2019-06-03 Completed Ada Se ybold Vaccine, High Dose, 00:00:00 Age 65 And Up Influenza Virus 2019-06-03 Completed Ada Se ybold Vaccine, High Dose, 00:00:00 Age 65 And Up Influenza Virus 2019-06-03 Completed Ada Se ybold Vaccine, High Dose, 00:00:00 Age 65 And Up Influenza Virus 2019-06-03 Completed Ada Se ybold Vaccine, High Dose, 00:00:00 Age 65 And Up Influenza Virus 2019-06-03 Completed Ada Se ybold Vaccine, High Dose, 00:00:00 Age 65 And Up Influenza Virus 2018-03-16 Completed Ada Se ybold Vaccine, High Dose, 00:00:00 Age 65 And Up Influenza Virus 2018-03-16 Completed Ada Se ybold Vaccine, High Dose, 00:00:00 Age 65 And Up Influenza Virus 2018-03-16 Completed Ada Se ybold Vaccine, High Dose, 00:00:00 Age 65 And Up Influenza Virus 2018-03-16 Completed Ada Se ybold Vaccine, High Dose, 00:00:00 Age 65 And Up Influenza Virus 2018-03-16 Completed Ada Se ybold Vaccine, High Dose, 00:00:00 Age 65 And Up Influenza Virus 2018-03-16 Completed Ada Se ybold Vaccine, High Dose, 00:00:00 - Ext ernal Age 65 And Up Influenza Virus 2018-03-16 Completed Ada Se ybold Vaccine, High Dose, 00:00:00 - Ext ernal Age 65 And Up Influenza Virus 2018-03-16 Completed Ada Se ybold Vaccine, High Dose, 00:00:00 Age 65 And Up Influenza Virus 2018-03-16 Completed Ada Se ybold Vaccine, High Dose, 00:00:00 Age 65 And Up Influenza Virus 2018-03-16 Completed Ada Se ybold Vaccine, High Dose, 00:00:00 Age 65 And Up Influenza Virus 2018-03-16 Completed Ada Se ybold Vaccine, High Dose, 00:00:00 Age 65 And Up Influenza Virus 2018-03-16 Completed Ada Se ybold Vaccine, High Dose, 00:00:00 Age 65 And Up Influenza Virus 2018-03-16 Completed Ada Se ybold Vaccine, High Dose, 00:00:00 Age 65 And Up Influenza Virus 2018-03-16 Completed Ada Se ybold Vaccine, High Dose, 00:00:00 Age 65 And Up Influenza Virus 2018-03-16 Completed Ada Se ybold Vaccine, High Dose, 00:00:00 Age 65 And Up Influenza Virus 2018-03-16 Completed Ada Se ybold Vaccine, High Dose, 00:00:00 Age 65 And Up Influenza Virus 2018-03-16 Completed Ada Se ybold Vaccine, High Dose, 00:00:00 Age 65 And Up Influenza Virus 2018-03-16 Completed Ada Se ybold Vaccine, High Dose, 00:00:00 Age 65 And Up Influenza Virus 2018-03-16 Completed Ada Se ybold Vaccine, High Dose, 00:00:00 Age 65 And Up Influenza Virus 2018-03-16 Completed Ada Se ybold Vaccine, High Dose, 00:00:00 Age 65 And Up Influenza Virus 2017-03-11 Completed Ada Se ybold Vaccine, High Dose, 00:00:00 Age 65 And Up Tdap- (Boostrix, 2017-03-11 Completed Ada S eybold Adacel) 00:00:00 Influenza Virus 2017-03-11 Completed Ada Se ybold Vaccine, High Dose, 00:00:00 Age 65 And Up Tdap- (Boostrix, 2017-03-11 Completed Ada S eybold Adacel) 00:00:00 Influenza Virus 2017-03-11 Completed Ada Se ybold Vaccine, High Dose, 00:00:00 Age 65 And Up Tdap- (Boostrix, 2017-03-11 Completed Ada S eybold Adacel) 00:00:00 Influenza Virus 2017-03-11 Completed Ada Se ybold Vaccine, High Dose, 00:00:00 Age 65 And Up Tdap- (Boostrix, 2017-03-11 Completed Ada S eybold Adacel) 00:00:00 Influenza Virus 2017-03-11 Completed Ada Se ybold Vaccine, High Dose, 00:00:00 Age 65 And Up Tdap- (Boostrix, 2017-03-11 Completed Ada S eybold Adacel) 00:00:00 Influenza Virus 2017-03-11 Completed Ada Se ybold Vaccine, High Dose, 00:00:00 - Ext ernal Age 65 And Up Tdap- (Boostrix, 2017-03-11 Completed Ada S eybold Adacel) 00:00:00 - External Influenza Virus 2017-03-11 Completed Ada Se ybold Vaccine, High Dose, 00:00:00 - Ext ernal Age 65 And Up Tdap- (Boostrix, 2017-03-11 Completed Ada S eybold Adacel) 00:00:00 - External Influenza Virus 2017-03-11 Completed Ada Se ybold Vaccine, High Dose, 00:00:00 Age 65 And Up Tdap- (Boostrix, 2017-03-11 Completed Ada S eybold Adacel) 00:00:00 Influenza Virus 2017-03-11 Completed Ada Se ybold Vaccine, High Dose, 00:00:00 Age 65 And Up Tdap- (Boostrix, 2017-03-11 Completed Ada S eybold Adacel) 00:00:00 Influenza Virus 2017-03-11 Completed Ada Se ybold Vaccine, High Dose, 00:00:00 Age 65 And Up Tdap- (Boostrix, 2017-03-11 Completed Ada S eybold Adacel) 00:00:00 Influenza Virus 2017-03-11 Completed Ada Se ybold Vaccine, High Dose, 00:00:00 Age 65 And Up Tdap- (Boostrix, 2017-03-11 Completed Ada S eybold Adacel) 00:00:00 Influenza Virus 2017-03-11 Completed Ada Se ybold Vaccine, High Dose, 00:00:00 Age 65 And Up Tdap- (Boostrix, 2017-03-11 Completed Ada S eybold Adacel) 00:00:00 Influenza Virus 2017-03-11 Completed Ada Se ybold Vaccine, High Dose, 00:00:00 Age 65 And Up Tdap- (Boostrix, 2017-03-11 Completed Ada S eybold Adacel) 00:00:00 Influenza Virus 2017-03-11 Completed Ada Se ybold Vaccine, High Dose, 00:00:00 Age 65 And Up Tdap- (Boostrix, 2017-03-11 Completed Ada S eybold Adacel) 00:00:00 Influenza Virus 2017-03-11 Completed Ada Se ybold Vaccine, High Dose, 00:00:00 Age 65 And Up Tdap- (Boostrix, 2017-03-11 Completed Ada S eybold Adacel) 00:00:00 Influenza Virus 2017-03-11 Completed Ada Se ybold Vaccine, High Dose, 00:00:00 Age 65 And Up Tdap- (Boostrix, 2017-03-11 Completed Ada S eybold Adacel) 00:00:00 Influenza Virus 2017-03-11 Completed Ada Se ybold Vaccine, High Dose, 00:00:00 Age 65 And Up Tdap- (Boostrix, 2017-03-11 Completed Ada S eybold Adacel) 00:00:00 Influenza Virus 2017-03-11 Completed Ada Se ybold Vaccine, High Dose, 00:00:00 Age 65 And Up Tdap- (Boostrix, 2017-03-11 Completed Ada S eybold Adacel) 00:00:00 Influenza Virus 2017-03-11 Completed Ada Se ybold Vaccine, High Dose, 00:00:00 Age 65 And Up Tdap- (Boostrix, 2017-03-11 Completed Ada S eybold Adacel) 00:00:00 Influenza Virus 2017-03-11 Completed Ada Se ybold Vaccine, High Dose, 00:00:00 Age 65 And Up Tdap- (Boostrix, 2017-03-11 Completed Ada S eybold Adacel) 00:00:00 Influenza Virus 2016-04-23 Completed Ada Se ybold Vaccine, High Dose, 00:00:00 Age 65 And Up Influenza Virus 2016-04-23 Completed Ada Se ybold Vaccine, High Dose, 00:00:00 Age 65 And Up Influenza Virus 2016-04-23 Completed Ada Se ybold Vaccine, High Dose, 00:00:00 Age 65 And Up Influenza Virus 2016-04-23 Completed Ada Se ybold Vaccine, High Dose, 00:00:00 Age 65 And Up Influenza Virus 2016-04-23 Completed Ada Se ybold Vaccine, High Dose, 00:00:00 Age 65 And Up Influenza Virus 2016-04-23 Completed Ada Se ybold Vaccine, High Dose, 00:00:00 - Ext ernal Age 65 And Up Influenza Virus 2016-04-23 Completed Ada Se ybold Vaccine, High Dose, 00:00:00 - Ext ernal Age 65 And Up Influenza Virus 2016-04-23 Completed Ada Se ybold Vaccine, High Dose, 00:00:00 Age 65 And Up Influenza Virus 2016-04-23 Completed Ada Se ybold Vaccine, High Dose, 00:00:00 Age 65 And Up Influenza Virus 2016-04-23 Completed Ada Se ybold Vaccine, High Dose, 00:00:00 Age 65 And Up Influenza Virus 2016-04-23 Completed Ada Se ybold Vaccine, High Dose, 00:00:00 Age 65 And Up Influenza Virus 2016-04-23 Completed Ada Se ybold Vaccine, High Dose, 00:00:00 Age 65 And Up Influenza Virus 2016-04-23 Completed Ada Se ybold Vaccine, High Dose, 00:00:00 Age 65 And Up Influenza Virus 2016-04-23 Completed Ada Se ybold Vaccine, High Dose, 00:00:00 Age 65 And Up Influenza Virus 2016-04-23 Completed Ada Se ybold Vaccine, High Dose, 00:00:00 Age 65 And Up Influenza Virus 2016-04-23 Completed Ada Se ybold Vaccine, High Dose, 00:00:00 Age 65 And Up Influenza Virus 2016-04-23 Completed Ada Se ybold Vaccine, High Dose, 00:00:00 Age 65 And Up Influenza Virus 2016-04-23 Completed Ada Se ybold Vaccine, High Dose, 00:00:00 Age 65 And Up Influenza Virus 2016-04-23 Completed Ada Se ybold Vaccine, High Dose, 00:00:00 Age 65 And Up Influenza Virus 2016-04-23 Completed Ada Se ybold Vaccine, High Dose, 00:00:00 Age 65 And Up Hepatitis 2015-04-18 Completed Ada Seybold B,unspecified 00:00:00 Measles 2015-04-18 Completed Ada Seybold 00:00:00 Mumps 2015-04-18 Completed Ada Seybold 00:00:00 Rubella 2015-04-18 Completed Ada Seybold 00:00:00 Hepatitis 2015-04-18 Completed Ada Seybold B,unspecified 00:00:00 Measles 2015-04-18 Completed Ada Seybold 00:00:00 Mumps 2015-04-18 Completed Ada Seybold 00:00:00 Rubella 2015-04-18 Completed Ada Seybold 00:00:00 Hepatitis 2015-04-18 Completed Ada Seybold B,unspecified 00:00:00 Measles 2015-04-18 Completed Ada Seybold 00:00:00 Mumps 2015-04-18 Completed Ada Seybold 00:00:00 Rubella 2015-04-18 Completed Ada Seybold 00:00:00 Hepatitis 2015-04-18 Completed Ada Coronadoybold B,unspecified 00:00:00 Measles 2015-04-18 Completed Ada Seybold 00:00:00 Mumps 2015-04-18 Completed Ada Seybold 00:00:00 Rubella 2015-04-18 Completed Ada Seybold 00:00:00 Hepatitis 2015-04-18 Completed Ada Coronadoybold B,unspecified 00:00:00 Measles 2015-04-18 Completed Ada Seybold 00:00:00 Mumps 2015-04-18 Completed Ada Seybold 00:00:00 Rubella 2015-04-18 Completed Ada Seybold 00:00:00 Hepatitis 2015-04-18 Completed Ada Seybold B,unspecified 00:00:00 - External Measles 2015-04-18 Completed Ada Seybold 00:00:00 - External Mumps 2015-04-18 Completed Ada Seybold 00:00:00 - External Rubella 2015-04-18 Completed Ada Seybold 00:00:00 - External Hepatitis 2015-04-18 Completed Ada Seybold B,unspecified 00:00:00 - External Measles 2015-04-18 Completed Ada Seybold 00:00:00 - External Mumps 2015-04-18 Completed Ada Seybold 00:00:00 - External Rubella 2015-04-18 Completed Ada Seybold 00:00:00 - External Hepatitis 2015-04-18 Completed Ada Seybold B,unspecified 00:00:00 Measles 2015-04-18 Completed Ada Seybold 00:00:00 Mumps 2015-04-18 Completed Ada Seybold 00:00:00 Rubella 2015-04-18 Completed Ada Seybold 00:00:00 Hepatitis 2015-04-18 Completed Ada Seybold B,unspecified 00:00:00 Measles 2015-04-18 Completed Ada Seybold 00:00:00 Mumps 2015-04-18 Completed Ada Seybold 00:00:00 Rubella 2015-04-18 Completed Ada Seybold 00:00:00 Hepatitis 2015-04-18 Completed Ada Coronadoybold B,unspecified 00:00:00 Measles 2015-04-18 Completed Ada Seybold 00:00:00 Mumps 2015-04-18 Completed Ada Seybold 00:00:00 Rubella 2015-04-18 Completed Ada Seybold 00:00:00 Hepatitis 2015-04-18 Completed Ada Seybold B,unspecified 00:00:00 Measles 2015-04-18 Completed Ada Seybold 00:00:00 Mumps 2015-04-18 Completed Ada Seybold 00:00:00 Rubella 2015-04-18 Completed Ada Seybold 00:00:00 Hepatitis 2015-04-18 Completed Ada Seybold B,unspecified 00:00:00 Measles 2015-04-18 Completed Ada Seybold 00:00:00 Mumps 2015-04-18 Completed Ada Seybold 00:00:00 Rubella 2015-04-18 Completed Ada Seybold 00:00:00 Hepatitis 2015-04-18 Completed Ada Seybold B,unspecified 00:00:00 Measles 2015-04-18 Completed Ada Seybold 00:00:00 Mumps 2015-04-18 Completed Ada Seybold 00:00:00 Rubella 2015-04-18 Completed Ada Seybold 00:00:00 Hepatitis 2015-04-18 Completed Ada Seybold B,unspecified 00:00:00 Measles 2015-04-18 Completed Ada Seybold 00:00:00 Mumps 2015-04-18 Completed Ada Seybold 00:00:00 Rubella 2015-04-18 Completed Ada Seybold 00:00:00 Hepatitis 2015-04-18 Completed Ada Coronadoybold B,unspecified 00:00:00 Measles 2015-04-18 Completed Ada Seybold 00:00:00 Mumps 2015-04-18 Completed Ada Seybold 00:00:00 Rubella 2015-04-18 Completed Ada Seybold 00:00:00 Hepatitis 2015-04-18 Completed Ada Coronadoybold B,unspecified 00:00:00 Measles 2015-04-18 Completed Ada Seybold 00:00:00 Mumps 2015-04-18 Completed Ada Seybold 00:00:00 Rubella 2015-04-18 Completed Ada Seybold 00:00:00 Hepatitis 2015-04-18 Completed Ada Coronadoybfritz B,unspecified 00:00:00 Measles 2015-04-18 Completed Ada Seybold 00:00:00 Mumps 2015-04-18 Completed Ada Seybold 00:00:00 Rubella 2015-04-18 Completed Ada Seybold 00:00:00 Hepatitis 2015-04-18 Completed Ada Coronadoybfritz B,unspecified 00:00:00 Measles 2015-04-18 Completed Ada Seybold 00:00:00 Mumps 2015-04-18 Completed Ada Seybold 00:00:00 Rubella 2015-04-18 Completed Ada Seybold 00:00:00 Hepatitis 2015-04-18 Completed Ada Becerra B,unspecified 00:00:00 Measles 2015-04-18 Completed Ada Seybold 00:00:00 Mumps 2015-04-18 Completed Ada Seybold 00:00:00 Rubella 2015-04-18 Completed Ada Seybold 00:00:00 Hepatitis 2015-04-18 Completed Ada Coronadoybold B,unspecified 00:00:00 Measles 2015-04-18 Completed Ada Seybold 00:00:00 Mumps 2015-04-18 Completed Ada Seybold 00:00:00 Rubella 2015-04-18 Completed Ada Seybold 00:00:00 Influenza Virus 2015 Completed Ada Coronado ybold Vaccine, High Dose, 00:00:00 Age 65 And Up Influenza Virus 2015 Completed Ada Se ybold Vaccine, High Dose, 00:00:00 Age 65 And Up Influenza Virus 2015 Completed Ada Se ybold Vaccine, High Dose, 00:00:00 Age 65 And Up Influenza Virus 2015 Completed Ada Se ybold Vaccine, High Dose, 00:00:00 Age 65 And Up Influenza Virus 2015 Completed Ada Se ybold Vaccine, High Dose, 00:00:00 Age 65 And Up Influenza Virus 2015 Completed Ada Se ybold Vaccine, High Dose, 00:00:00 - Ext ernal Age 65 And Up Influenza Virus 2015 Completed Ada Se ybold Vaccine, High Dose, 00:00:00 - Ext ernal Age 65 And Up Influenza Virus 2015 Completed Ada Se ybold Vaccine, High Dose, 00:00:00 Age 65 And Up Influenza Virus 2015 Completed Ada Se ybold Vaccine, High Dose, 00:00:00 Age 65 And Up Influenza Virus 2015 Completed Ada Se ybold Vaccine, High Dose, 00:00:00 Age 65 And Up Influenza Virus 2015 Completed Ada Se ybold Vaccine, High Dose, 00:00:00 Age 65 And Up Influenza Virus 2015 Completed Ada Se ybold Vaccine, High Dose, 00:00:00 Age 65 And Up Influenza Virus 2015 Completed Ada Se ybold Vaccine, High Dose, 00:00:00 Age 65 And Up Influenza Virus 2015 Completed Ada Se ybold Vaccine, High Dose, 00:00:00 Age 65 And Up Influenza Virus 2015 Completed Ada Se ybold Vaccine, High Dose, 00:00:00 Age 65 And Up Influenza Virus 2015 Completed Ada Se ybold Vaccine, High Dose, 00:00:00 Age 65 And Up Influenza Virus 2015 Completed Ada Se ybold Vaccine, High Dose, 00:00:00 Age 65 And Up Influenza Virus 2015 Completed Ada Se ybold Vaccine, High Dose, 00:00:00 Age 65 And Up Influenza Virus 2015 Completed Ada Se ybold Vaccine, High Dose, 00:00:00 Age 65 And Up Influenza Virus 2015 Completed Ada Se ybold Vaccine, High Dose, 00:00:00 Age 65 And Up Pneumococcal Vaccine, 2014-05-02 Completed Sumanth sey Seybold Conjugate 13 00:00:00 Pneumococcal Vaccine, 2014-05-02 Completed Sumanth sey Seybold Conjugate 13 00:00:00 Pneumococcal Vaccine, 2014-05-02 Completed Sumanth sey Seybold Conjugate 13 00:00:00 Pneumococcal Vaccine, 2014-05-02 Completed Sumanth sey Seybold Conjugate 13 00:00:00 Pneumococcal Vaccine, 2014-05-02 Completed Sumanth sey Seybold Conjugate 13 00:00:00 Pneumococcal Vaccine, 2014-05-02 Completed Sumanth sey Seybold Conjugate 13 00:00:00 - External Pneumococcal Vaccine, 2014-05-02 Completed Sumanth sey Seybold Conjugate 13 00:00:00 - External Pneumococcal Vaccine, 2014-05-02 Completed Sumanth sey Seybold Conjugate 13 00:00:00 Pneumococcal Vaccine, 2014-05-02 Completed Sumanth sey Seybold Conjugate 13 00:00:00 Pneumococcal Vaccine, 2014-05-02 Completed Sumanth sey Seybold Conjugate 13 00:00:00 Pneumococcal Vaccine, 2014-05-02 Completed Sumanth sey Seybold Conjugate 13 00:00:00 Pneumococcal Vaccine, 2014-05-02 Completed Sumanth sey Seybold Conjugate 13 00:00:00 Pneumococcal Vaccine, 2014-05-02 Completed Sumanth sey Seybold Conjugate 13 00:00:00 Pneumococcal Vaccine, 2014-05-02 Completed Sumanth sey Seybold Conjugate 13 00:00:00 Pneumococcal Vaccine, 2014-05-02 Completed Sumanth sey Seybold Conjugate 13 00:00:00 Pneumococcal Vaccine, 2014-05-02 Completed Sumanth sey Seybold Conjugate 13 00:00:00 Pneumococcal Vaccine, 2014-05-02 Completed Sumanth sey Seybold Conjugate 13 00:00:00 Pneumococcal Vaccine, 2014-05-02 Completed Sumanth sey Seybold Conjugate 13 00:00:00 Pneumococcal Vaccine, 2014-05-02 Completed Sumanth sey Seybold Conjugate 13 00:00:00 Pneumococcal Vaccine, 2014-05-02 Completed Sumanth sey Seybold Conjugate 13 00:00:00 Influenza Virus 2014-04-01 Completed Ada Se ybold Vaccine, High Dose, 00:00:00 Age 65 And Up Shingles SQ 2014-04-01 Completed Daa Seybol d (Zostavax) 00:00:00 Influenza Virus 2014-04-01 Completed Ada Se ybold Vaccine, High Dose, 00:00:00 Age 65 And Up Shingles SQ 2014-04-01 Completed Ada Seybol d (Zostavax) 00:00:00 Influenza Virus 2014-04-01 Completed Ada Se ybold Vaccine, High Dose, 00:00:00 Age 65 And Up Shingles SQ 2014-04-01 Completed Ada Seybol d (Zostavax) 00:00:00 Influenza Virus 2014-04-01 Completed Ada Se ybold Vaccine, High Dose, 00:00:00 Age 65 And Up Influenza Virus 2014-04-01 Completed Ada Se ybold Vaccine, High Dose, 00:00:00 Age 65 And Up Shingles SQ 2014-04-01 Completed Ada Seybol d (Zostavax) 00:00:00 Shingles SQ 2014-04-01 Completed Ada Seybol d (Zostavax) 00:00:00 Influenza Virus 2014-04-01 Completed Ada Se ybold Vaccine, High Dose, 00:00:00 - Ext ernal Age 65 And Up Shingles SQ 2014-04-01 Completed Ada Seybol d (Zostavax) 00:00:00 - External Influenza Virus 2014-04-01 Completed Ada Se ybold Vaccine, High Dose, 00:00:00 - Ext ernal Age 65 And Up Shingles SQ 2014-04-01 Completed Ada Seybol d (Zostavax) 00:00:00 - External Influenza Virus 2014-04-01 Completed Ada Se ybold Vaccine, High Dose, 00:00:00 Age 65 And Up Shingles SQ 2014-04-01 Completed Ada Seybol d (Zostavax) 00:00:00 Influenza Virus 2014-04-01 Completed Ada Se ybold Vaccine, High Dose, 00:00:00 Age 65 And Up Shingles SQ 2014-04-01 Completed Ada Seybol d (Zostavax) 00:00:00 Influenza Virus 2014-04-01 Completed Ada Se ybold Vaccine, High Dose, 00:00:00 Age 65 And Up Shingles SQ 2014-04-01 Completed Ada Seybol d (Zostavax) 00:00:00 Influenza Virus 2014-04-01 Completed Ada Se ybold Vaccine, High Dose, 00:00:00 Age 65 And Up Shingles SQ 2014-04-01 Completed Ada Seybol d (Zostavax) 00:00:00 Influenza Virus 2014-04-01 Completed Ada Se ybold Vaccine, High Dose, 00:00:00 Age 65 And Up Shingles SQ 2014-04-01 Completed Ada Seybol d (Zostavax) 00:00:00 Influenza Virus 2014-04-01 Completed Ada Se ybold Vaccine, High Dose, 00:00:00 Age 65 And Up Shingles SQ 2014-04-01 Completed Ada Seybol d (Zostavax) 00:00:00 Influenza Virus 2014-04-01 Completed Ada Se ybold Vaccine, High Dose, 00:00:00 Age 65 And Up Shingles SQ 2014-04-01 Completed Ada Seybol d (Zostavax) 00:00:00 Influenza Virus 2014-04-01 Completed Ada Se ybold Vaccine, High Dose, 00:00:00 Age 65 And Up Shingles SQ 2014-04-01 Completed Ada Seybol d (Zostavax) 00:00:00 Influenza Virus 2014-04-01 Completed Ada Se ybold Vaccine, High Dose, 00:00:00 Age 65 And Up Shingles SQ 2014-04-01 Completed Ada Seybol d (Zostavax) 00:00:00 Influenza Virus 2014-04-01 Completed Ada Se ybold Vaccine, High Dose, 00:00:00 Age 65 And Up Shingles SQ 2014-04-01 Completed Ada Seybol d (Zostavax) 00:00:00 Influenza Virus 2014-04-01 Completed Ada Se ybold Vaccine, High Dose, 00:00:00 Age 65 And Up Shingles SQ 2014-04-01 Completed Ada Seybol d (Zostavax) 00:00:00 Influenza Virus 2014-04-01 Completed Ada Se ybold Vaccine, High Dose, 00:00:00 Age 65 And Up Shingles SQ 2014-04-01 Completed Ada Seybol d (Zostavax) 00:00:00 Influenza Virus 2014-04-01 Completed Ada Se ybold Vaccine, High Dose, 00:00:00 Age 65 And Up Shingles SQ 2014-04-01 Completed Ada Seybol d (Zostavax) 00:00:00 Pneumococcal Vaccine, 2013-03-24 Completed Sumanth sey Seybold Polysaccharide 00:00:00 Pneumococcal Vaccine, 2013-03-24 Completed Sumanth sey Seybold Polysaccharide 00:00:00 Pneumococcal Vaccine, 2013-03-24 Completed Sumanth sey Seybold Polysaccharide 00:00:00 Pneumococcal Vaccine, 2013-03-24 Completed Sumanth sey Seybold Polysaccharide 00:00:00 Pneumococcal Vaccine, 2013-03-24 Completed Sumanth sey Seybold Polysaccharide 00:00:00 Pneumococcal Vaccine, 2013-03-24 Completed Sumanth sey Seybold Polysaccharide 00:00:00 - External Pneumococcal Vaccine, 2013-03-24 Completed Sumanth sey Seybold Polysaccharide 00:00:00 - External Pneumococcal Vaccine, 2013-03-24 Completed Sumanth sey Seybold Polysaccharide 00:00:00 Pneumococcal Vaccine, 2013-03-24 Completed Sumanth sey Seybold Polysaccharide 00:00:00 Pneumococcal Vaccine, 2013-03-24 Completed Sumanth sey Seybold Polysaccharide 00:00:00 Pneumococcal Vaccine, 2013-03-24 Completed Sumanth sey Seybold Polysaccharide 00:00:00 Pneumococcal Vaccine, 2013-03-24 Completed Sumanth sey Seybold Polysaccharide 00:00:00 Pneumococcal Vaccine, 2013-03-24 Completed Sumanth sey Seybold Polysaccharide 00:00:00 Pneumococcal Vaccine, 2013-03-24 Completed Sumanth sey Seybold Polysaccharide 00:00:00 Pneumococcal Vaccine, 2013-03-24 Completed Sumanth sey Seybold Polysaccharide 00:00:00 Pneumococcal Vaccine, 2013-03-24 Completed Sumanth sey Seybold Polysaccharide 00:00:00 Pneumococcal Vaccine, 2013-03-24 Completed Sumanth sey Seybold Polysaccharide 00:00:00 Pneumococcal Vaccine, 2013-03-24 Completed Sumanth sey Seybold Polysaccharide 00:00:00 Pneumococcal Vaccine, 2013-03-24 Completed Sumanth sey Seybold Polysaccharide 00:00:00 Pneumococcal Vaccine, 2013-03-24 Completed Sumanth sey Seybold Polysaccharide 00:00:00 Influenza Virus 2013-01-29 Completed Ada Se ybold Vaccine, No Preserv, 00:00:00 age 6 months and up Influenza Virus 2013-01-29 Completed Ada Se ybold Vaccine, No Preserv, 00:00:00 age 6 months and up Influenza Virus 2013-01-29 Completed Ada Se ybold Vaccine, No Preserv, 00:00:00 age 6 months and up Influenza Virus 2013-01-29 Completed Ada Se ybold Vaccine, No Preserv, 00:00:00 age 6 months and up Influenza Virus 2013-01-29 Completed Ada Se ybold Vaccine, No Preserv, 00:00:00 age 6 months and up Influenza Virus 2013-01-29 Completed Ada Se ybold Vaccine, No Preserv, 00:00:00 - Ex ternal age 6 months and up Influenza Virus 2013-01-29 Completed Ada Se ybold Vaccine, No Preserv, 00:00:00 - Ex ternal age 6 months and up Influenza Virus 2013-01-29 Completed Ada Se ybold Vaccine, No Preserv, 00:00:00 age 6 months and up Influenza Virus 2013-01-29 Completed Ada Se ybold Vaccine, No Preserv, 00:00:00 age 6 months and up Influenza Virus 2013-01-29 Completed Ada Se ybold Vaccine, No Preserv, 00:00:00 age 6 months and up Influenza Virus 2013-01-29 Completed Ada Se ybold Vaccine, No Preserv, 00:00:00 age 6 months and up Influenza Virus 2013-01-29 Completed Ada Se ybold Vaccine, No Preserv, 00:00:00 age 6 months and up Influenza Virus 2013-01-29 Completed Ada Se ybold Vaccine, No Preserv, 00:00:00 age 6 months and up Influenza Virus 2013-01-29 Completed Ada Se ybold Vaccine, No Preserv, 00:00:00 age 6 months and up Influenza Virus 2013-01-29 Completed Ada Se ybold Vaccine, No Preserv, 00:00:00 age 6 months and up Influenza Virus 2013-01-29 Completed Ada Se ybold Vaccine, No Preserv, 00:00:00 age 6 months and up Influenza Virus 2013-01-29 Completed Ada Se ybold Vaccine, No Preserv, 00:00:00 age 6 months and up Influenza Virus 2013-01-29 Completed Ada Se ybold Vaccine, No Preserv, 00:00:00 age 6 months and up Influenza Virus 2013-01-29 Completed Ada Se ybold Vaccine, No Preserv, 00:00:00 age 6 months and up Influenza Virus 2013-01-29 Completed Ada Se ybold Vaccine, No Preserv, 00:00:00 age 6 months and up Influenza Virus 2010-01-30 Completed Ada Se ybold Vaccine, age 6 months 00:00:00 and up Influenza Virus 2010-01-30 Completed Ada Se ybold Vaccine, age 6 months 00:00:00 and up Influenza Virus 2010-01-30 Completed Ada Se ybold Vaccine, age 6 months 00:00:00 and up Influenza Virus 2010-01-30 Completed Ada Se ybold Vaccine, age 6 months 00:00:00 and up Influenza Virus 2010-01-30 Completed Ada Se ybold Vaccine, age 6 months 00:00:00 and up Influenza Virus 2010-01-30 Completed Ada Se ybold Vaccine, age 6 months 00:00:00 - E xternal and up Influenza Virus 2010-01-30 Completed Ada Se ybold Vaccine, age 6 months 00:00:00 - E xternal and up Influenza Virus 2010-01-30 Completed Ada Se ybold Vaccine, age 6 months 00:00:00 and up Influenza Virus 2010-01-30 Completed Ada Se ybold Vaccine, age 6 months 00:00:00 and up Influenza Virus 2010-01-30 Completed Ada Se ybold Vaccine, age 6 months 00:00:00 and up Influenza Virus 2010-01-30 Completed Ada Se ybold Vaccine, age 6 months 00:00:00 and up Influenza Virus 2010-01-30 Completed Ada Se ybold Vaccine, age 6 months 00:00:00 and up Influenza Virus 2010-01-30 Completed Ada Se ybold Vaccine, age 6 months 00:00:00 and up Influenza Virus 2010-01-30 Completed Ada Se ybold Vaccine, age 6 months 00:00:00 and up Influenza Virus 2010-01-30 Completed Ada Se ybold Vaccine, age 6 months 00:00:00 and up Influenza Virus 2010-01-30 Completed Ada Se ybold Vaccine, age 6 months 00:00:00 and up Influenza Virus 2010-01-30 Completed Ada Se ybold Vaccine, age 6 months 00:00:00 and up Influenza Virus 2010-01-30 Completed Ada Se ybold Vaccine, age 6 months 00:00:00 and up Influenza Virus 2010-01-30 Completed Ada Se ybold Vaccine, age 6 months 00:00:00 and up Influenza Virus 2010-01-30 Completed Ada Se ybold Vaccine, age 6 months 00:00:00 and up Influenza Virus 2008-02-29 Completed Ada Se ybold Vaccine, age 6 months 00:00:00 and up Influenza Virus 2008-02-29 Completed Ada Se ybold Vaccine, age 6 months 00:00:00 and up Influenza Virus 2008-02-29 Completed Ada Se ybold Vaccine, age 6 months 00:00:00 and up Influenza Virus 2008-02-29 Completed Ada Se ybold Vaccine, age 6 months 00:00:00 and up Influenza Virus 2008-02-29 Completed Ada Se ybold Vaccine, age 6 months 00:00:00 and up Influenza Virus 2008-02-29 Completed Ada Se ybold Vaccine, age 6 months 00:00:00 - E xternal and up Influenza Virus 2008-02-29 Completed Ada Se ybold Vaccine, age 6 months 00:00:00 - E xternal and up Influenza Virus 2008-02-29 Completed Ada Se ybold Vaccine, age 6 months 00:00:00 and up Influenza Virus 2008-02-29 Completed Ada Se ybold Vaccine, age 6 months 00:00:00 and up Influenza Virus 2008-02-29 Completed Ada Se ybold Vaccine, age 6 months 00:00:00 and up Influenza Virus 2008-02-29 Completed Ada Se ybold Vaccine, age 6 months 00:00:00 and up Influenza Virus 2008-02-29 Completed Ada Se ybold Vaccine, age 6 months 00:00:00 and up Influenza Virus 2008-02-29 Completed Ada Se ybold Vaccine, age 6 months 00:00:00 and up Influenza Virus 2008-02-29 Completed Ada Se ybold Vaccine, age 6 months 00:00:00 and up Influenza Virus 2008-02-29 Completed Ada Se ybold Vaccine, age 6 months 00:00:00 and up Influenza Virus 2008-02-29 Completed Ada Se ybold Vaccine, age 6 months 00:00:00 and up Influenza Virus 2008-02-29 Completed Ada Se ybold Vaccine, age 6 months 00:00:00 and up Influenza Virus 2008-02-29 Completed Ada Se ybold Vaccine, age 6 months 00:00:00 and up Influenza Virus 2008-02-29 Completed Ada Se ybold Vaccine, age 6 months 00:00:00 and up Influenza Virus 2008-02-29 Completed Ada Se ybold Vaccine, age 6 months 00:00:00 and up Pneumococcal Vaccine, 2006-11-06 Completed Sumanth sey Seybold Polysaccharide 00:00:00 Pneumococcal Vaccine, 2006-11-06 Completed Sumanth sey Seybold Polysaccharide 00:00:00 Pneumococcal Vaccine, 2006-11-06 Completed Sumanth sey Seybold Polysaccharide 00:00:00 Pneumococcal Vaccine, 2006-11-06 Completed Sumanth sey Seybold Polysaccharide 00:00:00 Pneumococcal Vaccine, 2006-11-06 Completed Sumanth sey Seybold Polysaccharide 00:00:00 Pneumococcal Vaccine, 2006-11-06 Completed Sumanth sey Seybold Polysaccharide 00:00:00 - External Pneumococcal Vaccine, 2006-11-06 Completed Sumanth sey Seybold Polysaccharide 00:00:00 - External Pneumococcal Vaccine, 2006-11-06 Completed Sumanth sey Seybold Polysaccharide 00:00:00 Pneumococcal Vaccine, 2006-11-06 Completed Sumanth sey Seybold Polysaccharide 00:00:00 Pneumococcal Vaccine, 2006-11-06 Completed Sumanth sey Seybold Polysaccharide 00:00:00 Pneumococcal Vaccine, 2006-11-06 Completed Sumanth sey Seybold Polysaccharide 00:00:00 Pneumococcal Vaccine, 2006-11-06 Completed Sumanth sey Seybold Polysaccharide 00:00:00 Pneumococcal Vaccine, 2006-11-06 Completed Sumanth sey Seybold Polysaccharide 00:00:00 Pneumococcal Vaccine, 2006-11-06 Completed Sumanth sey Seybold Polysaccharide 00:00:00 Pneumococcal Vaccine, 2006-11-06 Completed Sumanth sey Seybold Polysaccharide 00:00:00 Pneumococcal Vaccine, 2006-11-06 Completed Sumanth sey Seybold Polysaccharide 00:00:00 Pneumococcal Vaccine, 2006-11-06 Completed Sumanth sey Seybold Polysaccharide 00:00:00 Pneumococcal Vaccine, 2006-11-06 Completed Sumanth sey Seybold Polysaccharide 00:00:00 Pneumococcal Vaccine, 2006-11-06 Completed Sumanth sey Seybold Polysaccharide 00:00:00 Pneumococcal Vaccine, 2006-11-06 Completed Sumanth coronadoy Seybold Polysaccharide 00:00:00 Vital Signs Vital Name Observation Time Observation Value Comments Source WEIGHT 2022-07-23 06:00:00 140.66 kg HEIGHT 2022-07-22 16:28:00 182.9 cm WEIGHT 2022-07-22 16:28:00 147.419 kg WEIGHT 2022-07-23 06:00:00 140.66 kg HEIGHT 2022-07-22 16:28:00 182.9 cm WEIGHT 2022-07-22 16:28:00 147.419 kg WEIGHT 2022-07-23 06:00:00 140.66 kg HEIGHT 2022-07-22 16:28:00 182.9 cm WEIGHT 2022-07-22 16:28:00 147.419 kg Systolic blood 2022-05-16 21:20:00 137 mm[Hg] Ada Seybold - pressure External Diastolic blood 2022-05-16 21:20:00 75 mm[Hg] Kelse y Seybold - pressure External Heart rate 2022-05-16 21:20:00 62 /min Ada S eybold - External Body temperature 2022-05-16 21:20:00 36.39 Alejandra Prema ey Seybold - External Respiratory rate 2022-05-16 21:20:00 18 /min Prema ey Seybold - External Body height 2022-05-16 21:20:00 182.9 cm Ada S eybold - External Body weight 2022-05-16 21:20:00 148.78 kg Ada S eybold - External BMI 2022-05-16 21:20:00 44.48 kg/m2 Ada S eybold - External Systolic blood 2021-07-17 20:50:00 129 mm[Hg] Ada Seybold pressure Diastolic blood 2021-07-17 20:50:00 74 mm[Hg] Kelse y Seybold pressure Heart rate 2021-07-17 20:50:00 64 /min Ada S eybold Body temperature 2021-07-17 20:50:00 36.72 Alejandra Prema ey Seybold Respiratory rate 2021-07-17 20:50:00 16 /min Prema ey Seybold Body height 2021-07-17 20:50:00 182.9 cm Ada S eybold Body weight 2021-07-17 20:50:00 137.553 kg Ada S eybold BMI 2021-07-17 20:50:00 41.13 kg/m2 Ada S eybold Systolic blood 2021-04-27 16:48:00 118 mm[Hg] Ada Seybold pressure Diastolic blood 2021-04-27 16:48:00 67 mm[Hg] Kelse y Seybold pressure Heart rate 2021-04-27 16:48:00 52 /min Ada S eybold Body temperature 2021-04-27 16:48:00 36.78 Alejandra Prema ey Seybold Respiratory rate 2021-04-27 16:48:00 16 /min Prema ey Seybold Body height 2021-04-27 16:48:00 182.9 cm Ada S eybold Body weight 2021-04-27 16:48:00 137.258 kg Ada S eybold BMI 2021-04-27 16:48:00 41.04 kg/m2 Ada S eybold Systolic blood 2021-03-28 19:09:00 115 mm[Hg] Ada Seybold pressure Diastolic blood 2021-03-28 19:09:00 66 mm[Hg] Kelse y Seybold pressure Heart rate 2021-03-28 19:09:00 66 /min Ada S eybold Body temperature 2021-03-28 19:09:00 36.72 Alejandra Prema ey Seybold Respiratory rate 2021-03-28 19:09:00 18 /min Prema ey Seybold Body height 2021-03-28 19:09:00 182.9 cm Ada S eybold Body weight 2021-03-28 19:09:00 144.335 kg Ada S eybold BMI 2021-03-28 19:09:00 43.16 kg/m2 Ada S eybold Systolic blood 2021-02-01 18:22:00 127 mm[Hg] Ada Seybold pressure Diastolic blood 2021-02-01 18:22:00 71 mm[Hg] Kelse y Seybold pressure Heart rate 2021-02-01 18:22:00 63 /min Ada mane Body temperature 2021-02-01 18:22:00 36.83 Alejandra Prema Becerra Respiratory rate 2021-02-01 18:22:00 18 /min Prema Becerra Body height 2021-02-01 18:22:00 182.9 cm Ada mane Body weight 2021-02-01 18:22:00 145.605 kg Ada mane BMI 2021-02-01 18:22:00 43.54 kg/m2 Ada mane HEIGHT 2020-09-08 16:29:00 182.9 cm WEIGHT 2020-09-08 16:29:00 147.873 kg HEIGHT 2020-09-08 16:29:00 182.9 cm WEIGHT 2020-09-08 16:29:00 147.873 kg Heart rate 2022-07-25 07:12:24 66 /min [facility] Oxygen saturation in 2022-07-25 07:12:24 90 /min [facility] Arterial blood by Medical Ce [facility]ter Pulse oximetry Systolic blood 2022-07-25 07:12:15 135 mm[Hg] [facility] Diastolic blood 2022-07-25 07:12:15 65 mm[Hg] [facility] Respiratory rate 2022-07-25 07:11:24 16 /min [facility] Body temperature 2022-07-25 07:11:12 37 Alejandra [facility] Body weight 2022-07-23 06:00:00 140.66 kg [facility] BMI 2022-07-23 06:00:00 42.06 kg/m2 [facility] Body height 2022-07-22 16:28:00 182.9 cm [facility] Systolic blood 2020-09-08 20:45:00 131 mm[Hg] [facility] Diastolic blood 2020-09-08 20:45:00 69 mm[Hg] [facility] Heart rate 2020-09-08 20:45:00 69 /min [facility] Respiratory rate 2020-09-08 20:45:00 18 /min [facility] Oxygen saturation in 2020-09-08 20:45:00 94 /min [facility] Arterial blood by Medical Ce [facility]ter Pulse oximetry Body temperature 2020-09-08 16:29:00 36.11 Alejandra [facility] Body height 2020-09-08 16:29:00 182.9 cm [facility] Body weight 2020-09-08 16:29:00 147.873 kg [facility] BMI 2020-09-08 16:29:00 44.21 kg/m2 [facility] Procedures Procedure Date / Time Performed Performing Clinician Sour e POCT-GLUCOSE METER 2022-07-25 05:41:00 [facility] COMPREHENSIVE METABOLIC 2022-07-25 03:51:00 [facility] LIPASE 2022-07-25 03:51:00 [facility] CBC (HEMOGRAM ONLY) 2022-07-25 03:51:00 [facility] POCT-GLUCOSE METER 2022-07-24 19:59:00 [facility] POCT-GLUCOSE METER 2022-07-24 16:11:00 [facility] POCT-GLUCOSE METER 2022-07-24 13:05:00 [facility] XR ABD ACUTE SERIES 2022-07-24 12:15:00 [facility] FLAT/UPRIGHT W UPRIGHT PA [facility] CHEST AND/OR DECUBS POCT-GLUCOSE METER 2022-07-24 05:45:00 [facility] LIPASE 2022-07-24 05:35:00 [facility] COMPREHENSIVE METABOLIC 2022-07-24 05:35:00 [facility] CBC (HEMOGRAM ONLY) 2022-07-24 05:35:00 [place], [facility] POCT-GLUCOSE METER 2022-07-23 20:49:00 [facility] 2022-07-23 16:19:00 [facility] EEG AWAKE AND DROWSY 2022-07-23 14:26:31 [facility] POCT-GLUCOSE METER 2022-07-23 11:15:00 [facility] PO[facility]SE [facility]ER 2022-07-23 05:48:00 [place], [facility] CBC W/PLT COUNT & AUTO 2022-07-23 03:47[facility] 2022-07-23 03:47:00 [place], [facility] LIPID PANEL 2022-07-23 03:47:00 [place], [facility] MAGNESIUM 2022-07-23 03:47:00 [place], [facility] PHOSPHORUS 2022-07-23 03:47:00 [place], [facility] CBC W/PLT COUNT & AUTO 2022-07-23 03:47[place] A1C 2022-07-23 03:47:00 [facility]na [facility] LACTIC ACID, VENOUS 2022-07-23 00:09:00 [facility] POCT-GLUCOSE METER 2022-07-22 23:41[facility]LV[facility] WITHOUT 2022-07-22 19:03:00 Belle Parra I [facility] IV CONTRAST [facility] XR CHEST 2 VIEWS 2022-07-22 18:55:[address] [facility] ECG 12-LEAD 2022-07-22 18:03:[address] [facility] ECG 12-LEAD 2022-07-22 18:03:38 Unknown, Hl7 [facility] URINE CULTURE 2022-07-22 17:53:00 Stefan Perez [facility] URINALYSIS W/ REFLEX 2022-07-22 17:53:00 Stefan Perez [facility] URINE CULTURE [facility] SARS-COV2/INFLUENZA/RSV 2022-07-22 17:45:00 Belle Parra [facility] RT-PCR [facility] CBC W/PLT COUNT & AUTO 2022-07-22 17:45:00 Stefan Perez [facility] DIFFERENTIAL [facility] COMPREHENSIVE METABOLIC 2022-07-22 17:45:00 Stefan Perez [facility] PANEL [facility] LIPASE 2022-07-22 17:45:00 [facility] 2022-07-22 17:45:[address] [facility] CBC W/PLT COUNT & AUTO 2022-07-22 17:45:00 Stefan Perez [facility] EKG-SCANNED 2022-07-22 00:00:[address] [facility] POCT-GLUCOSE METER 2020-09-08 20:21:00 Ernie Prabhakar [facility] CT BRAIN WITHOUT IV 2020-09-08 19:09:00 Ernie Prabhakar [facility] CONTRAST [facility] URINALYSIS W/ MICROSCOPIC 2020-09-08 17:25:00 Ernie Prabhakar [facility] XR CHEST 1 VIEW PORTABLE 2020-09-08 17:06:00 Ernie Prabhakar [facility] / BEDSIDE [facility] B-TYPE NATRIURETIC FACTOR 2020-09-08 16:51:[address] [facility] (BNP) [facility] CBC W/PLT COUNT & AUTO 2020-09-08 16:51:00 Ernie Prabhakar [facility] CBC W/PLT COUNT & AUTO 2020-09-08 16:51:00 Ernie Prabhakar [facility] COMPREHENSIVE METABOLIC 2020-09-08 16:50:[address] [facility] LIPASE 2020-09-08 16:50:00 Ernie Prabhakar [facility] TROPONIN I 2020-09-08 16:50:00 Ernie Prabhakar [facility] ECG 12-LEAD 2020-09-08 16:26:01 Unknown, Hl7 [facility] ECG 12-LEAD 2020-09-08 16:26:01 Ernie Prabhakar [facility] REPORT OF PROCEDURE - 2020-09-08 00:00:00 ProviderAriadne [facility] ENDOSCOPY SCAN Scanning [facility] Plan of Care Planned Activity Planned Date Details Comments Source Future Scheduled 2027-03-11 DTAP/TDAP/TD VACCINES [facility] 00:00:00 (2 - Td or Tdap) [code Medic fl Center = DTAP/TDAP/TD VACCINES (2 - Td or Tdap)] Future Scheduled 2027-03-11 DTAP/TDAP/TD VACCINES [facility] 00:00:00 (2 - Td or Tdap) [code Medic fl Center = DTAP/TDAP/TD VACCINES (2 - Td or Tdap)] Future Scheduled 2023-07-[address] [facility] 00:00:00 [facility] Screening (12+) [code = Tobacco Cessation Counseling and Screening (12+)] Future Scheduled 2022-10-[address] [facility] 00:[facility]:00 measurement (procedure) [facility] [code = [id number]] Future Scheduled 2022-05-[address] [facility] Test 00:00:00 (12+) [code = Medical Center DEPRESSION SCREENING (12+)] Future Scheduled 2022-05-19 FALLS RISK SCREENING [facility] Test 00:00:00 [code = FALLS RISK Medical enter SCREENING] Future Scheduled 2022-02-11 COVID-19 VACCINE (5 - [facility] 00:00:00 Booster for [facility] series) [code = COVID-19 VACCINE (5 - Booster for [facility] series)] Future Scheduled 2021-08-22 Urine screening for [facility] 00:00:00 protein (procedure) Medical Center [code = [id number]] Future Scheduled 2021-08-22 Urine screening for [facility] 00:00:00 protein (procedure) Medical Center [code = [id number]] Future Scheduled 2021-01-17 INFLUENZA VACCINE (#1) [facility] 00:00:00 [code = INFLUENZA Medical Ce nter VACCINE (#1)] Future Scheduled 2020-05-[address] [facility] Test 00:00:00 (12+) [code = Medical Center DEPRESSION SCREENING (12+)] Future Scheduled 2020-05-19 FALLS RISK SCREENING [facility] Test 00:00:00 [code = FALLS RISK Medical C enter SCREENING] Future Scheduled 2015-06-[address] [facility] 00:00:00 measurement (procedure) [facility] [code = [id number]] Future Scheduled 2014-05-27 [facility]INGLES VACCINES ([address] [facility] 00:00:00 3) [code [facility] (2 of 3)] Future Scheduled 2014-05-27 SHINGLES VACCINES ([address] [facility] 00:00:00 3) [code = [facility] V[facility]ES (2 of 3)] Future Scheduled 2014-05-[address] [facility] WELLNESS (YEAR 2 or Medical Center FIRST YEAR if no IPPE) [code = MEDICARE ANNUAL WELLNESS (YEAR 2 or FIRST YEAR if no IPPE)] Future Scheduled 2014-05-[address] [facility] 00:00:00 WELLNESS (YEAR 2 or Medical Center FIRST YEAR if no IPPE) [code = MEDICARE ANNUAL WELLNESS (YEAR 2 or FIRST YEAR if no IPPE)] Future Scheduled [address] [facility] 00:00:00 aneurysm screening Medical C enter (procedure) [code = 569439084] Future Scheduled 1966 HE[facility]ITIS C [facility] [code = HEPATITIS C [facility] Center SCREENING] Future Scheduled 1966 [facility]PATITIS C [facility]00 [code = HEPATITIS C Medical Center SCREENING] Future Scheduled 1958 DIABETIC EYE EXAM [code [facility] 00:00:00 = DIABETIC EYE EXAM] Medical Center Future Scheduled [address] [facility] Medical Center (regime/therapy) [code = 827092446] Future Scheduled 1958 DIABETIC EYE EXAM [code [facility] 00:00:00 = DIABETIC EYE EXAM] Medical Center Future Scheduled [address] [facility]00 examination [facility] (regime/therapy) [code = 156208619] Future Scheduled 1948 Screening for malignant [facility] 00:00:00 neoplasm of colon Medical Ce nter (procedure) [code = 506519525] Future Scheduled 1948 CT Colonography (combo) [facility] 00:00:00 [code = CT Colonography [facility] (combo)] Future Scheduled 1948 Screening for malignant [facility] 00:00:00 neoplasm of colon Medical Ce nter (procedure) [code = 970810014] Future Scheduled 1948 Screening for malignant [facility] 00:00:00 neoplasm of colon Medical Ce nter (procedure) [code = 908327318] Future Scheduled 1948 Screening for malignant [facility] 00:00:00 neoplasm of colon Medical Ce nter (procedure) [code = 602462386] Future Scheduled 1948 Screening for malignant [facility] 00:00:00 neoplasm of colon Medical Ce nter (procedure) [code = 357978229] Future Scheduled 1948 Sigmoidoscopy [code [facility] Sigm[facility]oscopy] Medical Cente r Encounters Start End Encounter Admission Attending Care Care Encounter Source Date/Time Date/Time Type Type Clinicians Facility Department ID 2023-02-11 2023-02-11 Outpatient ADA BARTLETT [id number] [place] 16:00:00 16:00:00 FRANCISCO rossi 2023-01-30 2023-01-30 Outpatient ADA STANLEY [id number] [place] 15:45:00 15:45:00 KYRIE rossi 2022-12-02 2022-12-02 Outpatient ADA COBURN [id number] [place] 13:20:00 13:20:00 BONNIE Seyb old 2022-11-11 2022-11-11 Outpatient ADA STEIN [id number] [place] 13:00:00 13:00:00 RACHANA Seybol d 2022-10-29 2022-10-29 Outpatient EMILIANO VICKY ADA CABALLERO [id number] [place] 16:00:00 16:00:00 Seybol d 2022-10-21 2022-10-21 Outpatient ADA COBURN [id number] [place] 00:00:00 00:00:00 BONNIE Seyb old 2022-10-20 2022-10-20 Outpatient WILFREDO REYNA ADA CABALLERO [id number] [place] 21:30:00 21:30:00 Seybol d 2022-10-11 2022-10-11 Outpatient ADA STEIN [id number] [place] 00:00:00 00:00:00 RACHANA Seybol d 2022-10-07 2022-10-07 Outpatient ADA BARTLETT [id number] [place] 00:00:00 00:00:00 FRANCISCO Seybol d 2022-10-04 2022-10-04 Outpatient ADA STEIN [id number] [place] 00:00:00 00:00:00 RACHANA Seybol d 2022-08-23 2022-08-23 Outpatient GC_GCFMAC_H PRIV PRIV [id number] [facility] 00:00:00 00:00:00 [facility]_ [id number] Medi jossue 2022-08-14 2022-08-14 Outpatient ADA PADGETT [id number] [place] 11:45:00 11:45:00 KALI Seybol d 2022-07-30 2022-07-30 Outpatient ADA PARRISH [id number] [place] 16:20:00 16:20:00 BRANDON Seybol d 2022-07-26 2022-07-26 Outpatient ADA VILLALTA [id number] [place] 00:00:00 00:00:00 LASUNDRA Seybo ld 2022-07-26 2022-07-26 Outpatient KATHRYN CABALLERO [id number] [place] 00:00:00 00:00:00 MD GELY Seybol d 2022-07-26 2022-07-26 Outpatient ADA CABALLERO [id number] [place] 00:00:00 00:00:00 Seybol d 2022-07-22 2022-07-25 [facility] Stefan Perez [facility] 1 [id number] [facility] 17:14:00 12:54:00 Encounter Belinda Espinal [facility] 2022-07-22 2022-07-25 Inpatient ER [facility] Emergency [id number] [facility] 17:14:00 12:54:00 [facility] 2022-07-25 2022-07-25 Outpatient ADA VALADEZ [id number] [place] 00:00:00 00:00:00 KEIRA Grossman ld 2022-07-24 2022-07-24 Outpatient ADA CABALLERO [id number] [place] 00:00:00 00:00:00 Seybol d 2022-07-24 2022-07-24 Outpatient ADA TRIANA [id number] [place] 00:00:00 00:00:00 MAINOR Seybol d 2022-07-23 2022-07-23 Outpatient KATHRYN CABALLERO [id number] [place] 00:00:00 00:00:00 MD GELY Seybol d 2022-07-23 2022-07-23 Outpatient ADA CABALLERO [id number] [place] 00:00:00 00:00:00 Seybol d 2022-07-22 2022-07-22 Outpatient ADA ESPINAL [id number] [place] 00:00:00 00:00:00 BELINDA Grossman ld 2022-07-22 2022-07-22 [facility] [id number] 00:00[facility]00 00:00:00 Only [facility] 2022-07-22 2022-07-22 Travel [facility] [id number] [facility] 00:00:00 00:00:00 [facility] 2022-07-16 2022-07-16 Outpatient ADA STANLEY [id number] [place] 14:00:00 14:00:00 KYRIE Seybol d 2022-07-13 2022-07-13 Outpatient ADA STEIN [id number] [place] 00:00:00 00:00:00 RACHANA Seybol d 2022-07-12 2022-07-12 Outpatient ADA COBURN [id number] [place] 00:00:00 00:00:00 BONNIE Seyb old 2022-06-26 2022-06-26 Outpatient ADA STANLEY [id number] [place] 14:00:00 14:00:00 KYRIE Seybol d 2022-06-09 2022-06-09 Outpatient ADA RODRIGES [id number] [place] 00:00:00 00:00:00 JULIÁN Seybol d 2022-05-21 2022-05-21 Outpatient ADA BARTLETT [id number] [place] 00:00:00 00:00:00 FRANCISCO Seybol d 2022-05-16 2022-05-16 Outpatient COVID-MODER ADA CABALLERO [id number] [place] 16:30:00 16:30:00 NA AN Seybo ld CONROE 2022-05-16 2022-05-16 Outpatient ADA COBURN [id number] [place] 15:40:00 15:40:00 BONNIE Seyb old 2022-05-15 2022-05-15 Outpatient LAB56 ADA CABALLERO [id number] [place] 13:55:00 13:55:00 Seybol d 2022-05-15 2022-05-15 Outpatient ADA STEIN [id number] [place] 13:00:00 13:00:00 RACHANA Seybol d 2022-05-06 2022-05-06 Outpatient ADA STEIN [id number] [place] 00:00:00 00:00:00 RACHANA Seybol d 2022-04-24 2022-04-24 Outpatient ADA STANLEY [id number] [place] 00:00:00 00:00:00 KYRIE Seybol d 2022-04-23 2022-04-23 Outpatient ADA COBURN [id number] [place] 00:00:00 00:00:00 BONNIE Seyb old 2022-03-30 2022-03-30 Outpatient AAD COBURN [id number] Aad 00:00:00 00:00:00 BONNIE Seyb old 2022-02-11 2022-02-11 Outpatient ADA COBURN [id number] [place] 00:00:00 00:00:00 BONNIE Seyb old 2022-01-24 2022-01-24 Outpatient ADA STEIN [id number] [place] 00:00:00 00:00:00 RACHANA Seybol d 2022-01-22 2022-01-22 Outpatient ADA BARTLETT [id number] [place] 11:30:00 11:30:00 FRANCISCO Seybol d 2022-01-14 2022-01-14 Outpatient ADA STANLEY [id number] [place] 00:00:00 00:00:00 KYRIE Seybol d 2022-01-09 2022-01-09 Outpatient ADA COBURN [id number] [place] 00:00:00 00:00:00 BONNIE Seyb old 2021-12-17 2021-12-17 Outpatient COVID-MODER ADA CABALLERO [id number] [place] 15:00:00 15:00:00 NA Ngoc NOLAN 2021-12-17 2021-12-17 Office Vicky Cummings 1.2.840.114 [id number] [place] 14:30:00 15:00:00 Visit 350.1.13.13 Se ybfritz 1.2.7.2.686 [id number] 2021-12-17 2021-12-17 Outpatient ADA CABALLERO [id number] [place] 14:50:00 14:50:00 Seybol d 2021-12-142021-12-14 Outpatient ADA COBURN [id number] [place] 00:00:00 00:00:00 BONNIE Seyb old 2021-12-02 2021-12-02 Outpatient ADA STEIN [id number] [place] 00:00:00 00:00:00 RACHANA Seybol d 2021-11-28 2021-11-28 Outpatient ADA STEIN [id number] [place] 10:20:00 10:20:00 RACHANA Seybol d 2021-11-21 2021-11-21 Outpatient KATHRYN CABALLERO [id number] [place] 00:00:00 00:00:00 MD GELY Seybol d 2021-11-09 2021-11-09 Outpatient ADA STEIN [id number] [place] 09:40:00 09:40:00 RACHANA Seybol d 2021-11-09 2021-11-09 Outpatient ANTIONETTE CABALLERO [id number] [place] 07:30:00 07:30:00 Seybol d 2021-10-23 2021-10-23 Outpatient ADA MULLER [id number] [place] 11:00:00 11:00:00 DEIDRA Seybol d 2021-10-03 2021-10-03 Outpatient ADA STEIN [id number] [place] 10:00:00 10:00:00 RACHANA Seybol d 2021-09-18 2021-09-18 Office MICHELLE Bartlett [id number] [place] 11:30:00 12:00:00 Visit Francisco SANDHU 350.1.13.13 ybfritz 1.2.7.2.686 [id number] 5 2021-09-07 2021-09-07 Outpatient KATHRYN CABALLERO [id number] [place] 00:00:00 00:00:00 MD GELY Seybol d 2021-08-28 2021-08-28 Outpatient ADA COBURN [id number] [place] 00:00:00 00:00:00 BONNIE Seyb old 2021-08-22 2021-08-22 Outpatient KATHRYN CABALLERO [id number] [place] 00:00:00 00:00:00 MD GELY Seybol d 2021-08-20 2021-08-20 Outpatient ADA COBURN [id number] [place] 00:00:00 00:00:00 BONNIE Seyb old 2021-08-06 2021-08-06 Outpatient ADA MULLER [id number] [place] 00:00:00 00:00:00 DEIDRA Seybol d 2021-07-26 2021-07-26 Outpatient ADA MULLER [id number] [place] 09:00:00 09:00:00 DEIDRA Seybol d 2021-07-25 2021-07-25 Outpatient ADA VANN [id number] [place] 09:15:00 09:15:00 BISI Seybol d 2021-07-20 2021-07-20 Outpatient ADA COBURN [id number] [place] 00:00:00 00:00:00 BONNIE Seyb old 2021-07-18 2021-07-18 Outpatient ADA COBURN [id number] [place] 00:00:00 00:00:00 BONNIE Seyb old 2021-07-17 2021-07-17 Outpatient LAB70 ADA CABALLERO [id number] [place] 16:15:00 16:15:00 Seybol d 2021-07-17 2021-07-17 Office Uday Coburn 1.2.840.114 [id number] [place] 15:20:00 16:00:00 Visit Bonnie F 350.1.13.13 Seybold 1.2.7.2.686 [id number] 2021-07-17 2021-07-17 Outpatient KATHRYN CABALLERO [id number] [place] 00:00:00 00:00:00 MD GELY Seybol d 2021-07-17 2021-07-17 Outpatient ADA COBURN [id number] [place] 00:00:00 00:00:00 BONNIE Seyb old 2021-07-03 2021-07-03 Outpatient BYRONTATUMADA [id number] [place] 00:00:00 00:00:00 BONNIE Coronadoyb old 2021-06-28 2021-06-28 Outpatient RODRIGESADA [id number] [place] 00:00:00 00:00:00 JULIÁN Seybol d 2021-06-26 2021-06-26 Outpatient ADA VANN [id number] [place] 15:45:00 15:45:00 BISI Seybol d 2021-06-26 2021-06-26 Outpatient LAB70 ADA CABALLERO [id number] [place] 08:10:00 08:10:00 Seybol d 2021-06-20 2021-06-20 Outpatient ADA MULLER [id number] [place] 10:00:00 10:00:00 DEIDRA Seybol d 2021-06-19 2021-06-19 Office MICHELLE Bartlett [id number] [id number] [place] 11:30:00 12:00:00 Visit Francisco SANDHU 350.1.13.13 Se ybold 1.2.7.2.686 [id number] 5 2021-06-19 2021-06-19 Office EHAVENLY Vann 1.2.840.114 [id number] [place] 09:15:00 09:30:00 Visit Bisi [facility] 350.1.13.13 Se ybold AND 1.2.7.2.686 DIAGNOSTI [id number] CENTER 0 2021-06-18 2021-06-18 Outpatient ADA VANN [id number] [place] 07:30:00 07:30:00 BISI Seybol d 2021-06-18 2021-06-18 Outpatient MONIQUE NOYOLA [id number] [place] 00:00:00 00:00:00 Seybol d 2021-06-13 2021-06-13 Outpatient [facility] ADA CABALLERO [id number] [place] 10:10:00 10:10:00 Seybol d 2021-06-13 2021-06-13 Outpatient TJR50-ZED ADA CABALLERO [id number] [place] 10:05:00 10:05:00 Seybol d 2021-06-13 2021-06-13 Outpatient ADA VANN [id number] [place] 00:00:00 00:00:00 BISI Seybol d 2021-06-12 2021-06-12 Outpatient PADGETTADA [id number] [place] 09:30:00 09:30:00 KALI Seybol d 2021-06-05 2021-06-05 Outpatient ADA COBURN [id number] [place] 00:00:00 00:00:00 BONNIE Seyb old 2021-06-05 2021-06-05 Outpatient ADA STEIN [id number] [place] 00:00:00 00:00:00 RACHANA Seybol d 2021-06-05 2021-06-05 Outpatient ADA STEIN [id number] [place] 00:00:00 00:00:00 RACHANA Seybol d 2021-06-04 2021-06-04 Outpatient ADA STEIN [id number] [place] 14:00:00 14:00:00 RACHANA Seybol d 2021-06-04 2021-06-04 Outpatient ADA COBURN [id number] [place] 00:00:00 00:00:00 BONNIE Seyb old 2021-06-03 2021-06-03 Outpatient ADA COBURN [id number] [place] 00:00:00 00:00:00 BONNIE Seyb old 2021-05-27 2021-05-27 Outpatient ADA GAY [id number] [place] 00:00:00 00:00:00 NAILA Hamo ld 2021-05-24 2021-05-24 Outpatient ADA GAY [id number] [place] 00:00:00 00:00:00 NAILA Hamo ld 2021-05-23 2021-05-23 Office O'Brien, GARRETT 1.2.840.114 [id number] [place] 11:40:00 12:20:00 Visit Naila JOHNSTON [facility].1.13.13 Seybold 1.2.7.2.686 [id number] 2021-05-23 2021-05-23 Outpatient VICTOR HUGOADA KAYE [id number] [place] 00:00:00 00:00:00 NAILA Grossman ld 2021-05-23 2021-05-23 Outpatient VICTOR HUGOADA KAYE [id number] [place] 00:00:00 00:00:00 NAILA Hamo ld 2021-05-22 2021-05-22 Telemedic Yohana [facility] 1.2.840.114 [id number] [place] 16:00:00 16:45:00 [facility] 350.1.13.13 Seybold 1.2.7.2.686 [id number] 2021-05-22 2021-05-22 Outpatient ADA COBURN [id number] [place] 00:00:00 00:00:00 BONNIE Seyb old 2021-05-22 2021-05-22 Outpatient ADA COBURN [id number] [place] 00:00:00 00:00:00 BONNIE Seyb old 2021-05-21 2021-05-21 Outpatient ADA BARTLETT [id number] [place] 00:00:00 00:00:00 FRANCISCO Seybol d 2021-05-21 2021-05-21 Outpatient ADA COBURN [id number] [place] 00:00:00 00:00:00 BONNIE Seyb old 2021-05-15 2021-05-15 Outpatient ADA GAY [id number] [place] 11:30:00 11:30:00 NAILA ybo ld 2021-05-14 2021-05-14 Outpatient LAB70 ADA CABALLERO [id number] [place] 13:30:00 13:30:00 Seybol d 2021-05-11 2021-05-11 Outpatient ADA COBURN [id number] [place] 00:00:00 00:00:00 BONNIE Seyb old 2021-05-10 2021-05-10 Outpatient OREN NAVA ADA [id number] [place] 10:15:00 10:15:00 Seybol d 2021-05-08 2021-05-08 Telemedici Yohana GARRETT 1..840.114 [id number] [place] 10:00:00 11:00:00 ne [facility] 350.1.13.13 Seybold 1.2.7.2.686 [id number] 2021-05-07 2021-05-07 Outpatient KATHRYN CABALLERO [id number] [place] 00:00:00 00:00:00 MD GELY Seybol d 2021-05-07 2021-05-07 Outpatient ADA CABALLERO [id number] [place] 00:00:00 00:00:00 Seybol d 2021-05-06 2021-05-06 Outpatient ADA COBURN [id number] [place] 00:00:00 00:00:00 BONNIE Seyb old 2021-05-03 2021-05-03 Outpatient ADA COBURN [id number] Aad 00:00:00 00:00:00 BONNIE Seyb old 2021-05-02 2021-05-02 Outpatient KATHRYN CABALLERO [id number] [place] 00:00:00 00:00:00 MD GELY Seybol d 2021-05-01 2021-05-01 Office [facility] ..840.114 [id number] [place] 15:30:00 15:30:00 Visit [facility] 350.1.13.13 Se ybold AND 1.2.7.2.686 DIAGNOSTI [id number] C CENTER 0 2021-05-01 2021-05-01 Outpatient ADA MULLER [id number] [place] 10:00:00 10:00:00 DEIDRA Seybol d 2021-04-30 2021-04-30 Telemedici GARRETT Muller 1.2.840.114 [id number] [place] 11:00:00 11:45:00 ne [facility] 350.1.13.13 Seybold 1.2.7.2.686 [id number] 2021-04-30 2021-04-30 Outpatient ADA GAY [id number] [place] 00:00:00 00:00:00 NAILA Grossman mark 2021-04-30 2021-04-30 Outpatient KATHRYN ADA CABALLERO [id number] [place] 00:00:00 00:00:00 MD Jasiel HONG 2021-04-29 2021-04-29 Outpatient ADA COBURN [id number] [place] 00:00:00 00:00:00 BONNIE Seyb old 2021-04-29 2021-04-29 Outpatient ADA COBURN [id number] [place] 00:00:00 00:00:00 BONNIE Seyb old 2021-04-27 2021-04-27 Office Uday Coburn 1.2.840.114 [id number] [place] 11:00:00 11:15:00 Visit Bonnie Britton 350.1.13.13 Seybold 1.2.7.2.686 [id number] 2021-04-27 2021-04-27 Outpatient ADA COBURN [id number] [place] 00:00:00 00:00:00 BONNIE Seyb old 2021-04-26 2021-04-26 Office Victor Hugo, GARRETT 1.2.840.114 [id number] [place] 08:00:00 09:00:00 Visit Naila Padilla [facility] 350.1.13.13 Seybold 1.2.7.2.686 [id number] 2021-04-24 2021-04-24 Outpatient CHAPIN-JOSÉ MIGUELE ADA CABALLERO [id number] [place] 15:15:00 15:15:00 DOMINGO WONG Seyb old 2021-04-24 2021-04-24 Office HEAVENLY Vann 1.2.840.114 [id number] [place] 08:45:00 09:00:00 Visit Bisi VALENTINE 350.1.13.13 Se ybold AND 1.2.7.2.686 DIAGNOSTI [id number] [facility] 0 2021-04-23 2021-04-23 Outpatient ADA VANN [id number] [place] 07:00:00 07:00:00 BISI Seybol d 2021-04-19 2021-04-19 Outpatient ADA BARTLETT [id number] [place] 00:00:00 00:00:00 FRANCISCO Seybol d 2021-04-18 2021-04-18 Outpatient [facility] ADA CABALLERO [id number] [place] 11:30:00 11:30:00 Seybol d 2021-04-18 2021-04-18 Outpatient ADA MULLER [id number] [place] 10:00:00 10:00:00 DEIDRA Seybol d 2021-04-18 2021-04-[address] ADA CABALLERO [id number] [place] 09:55:00 09:55:00 Seybol d 2021-04-18 2021-04-18 Outpatient ADA ARCE [id number] [place] 00:00:00 00:00:00 ALMA Seybol d 2021-04-18 2021-04-18 Outpatient ADA MULLER [id number] [place] 00:00:00 00:00:00 DEIDRA Seybol d 2021 2021 Office HEAVENLY VANN 1.2.840.114 [id number] [place] 13:45:00 13:45:00 Visit [facility] 350.1.13.13 Se ybold [facility]7.2.[address] [id number] [facility] 0 2021-04-10 2021-04-10 Outpatient ADA MULLER [id number] [place] 10:00:00 10:00:00 DEIDRA Seybol d 2021-04-04 2021-04-04 Outpatient ADA MULLER [id number] [place] 00:00:00 00:00:00 DEIDRA Seybol d 2021-03-30 2021-03-30 Outpatient ADA COBURN [id number] [place] 00:00:00 00:00:00 BONNIE Seyb old 2021-03-29 2021-03-29 Outpatient ADA COBURN [id number] [place] 00:00:00 00:00:00 BONNIE Seyb old 2021-03-28 2021-03-28 Office Uday Coburn 1.2.840.114 [id number] [place] 13:04:00 13:19:00 Visit Bonnie F 350.1.13.13 Seybold 1.2.7.2.686 [id number] 2021-03-28 2021-03-28 Outpatient ADA MULLER [id number] [place] 10:00:00 10:00:00 DEIDRA Seybol d 2021-03-28 2021-03-28 Outpatient LAB70 ADA CABALLERO [id number] [place] 08:10:00 08:10:00 Seybol d 2021-03-28 2021-03-28 Outpatient KATHRYN CABALLERO [id number] [place] 00:00:00 00:00:00 MD GELY Seybol d 2021-03-28 2021-03-28 Outpatient ADA COBURN [id number] [place] 00:00:00 00:00:00 BONNIE Seyb old 2021-03-23 2021-03-23 Outpatient KATHRYN CABALLERO [id number] [place] 00:00:00 00:00:00 MD Alexy HONGybol d 2021-03-22 2021-03-22 Outpatient ADA COBURN [id number] [place] 00:00:00 00:00:00 BONNIE Seyb old 2021-03-22 2021-03-22 Outpatient KATHRYN CABALLERO [id number] [place] 00:00:00 00:00:00 MD GELY Seybol d 2021-03-14 2021-03-14 Telemedici MICHELLE Bartlett 1.2.840.114 [id number] [place] 08:02:36 08:47:25 ne Francisco SANDHU 350.1.13.13 Se ybold 1.2.7.2.686 [id number] 2021-03-14 2021-03-14 Outpatient ADA BARTLETT [id number] [place] 00:00:00 00:00:00 FRANCISCO Seybol d 2021-03-12 2021-03-12 Office DANY Arce 1.2.840.114 [id number] [place] 14:14:41 14:29:41 Visit [facility] 350.1.13.13 S eybold 1.2.7.2.686 [id number] 2021-03-05 2021-03-05 Outpatient ADA COBURN [id number] [place] 00:00:00 00:00:00 BONNIE Seyb old 2021-02-28 2021-02-28 Outpatient ADA COBURN [id number] [place] 00:00:00 00:00:00 BONNIE Seyb old 2021-02-27 2021-02-27 Office Becky Smith GARRETT 1.2.840.114 [id number] [place] 07:30:12 07:50:[address] [facility] 350.1.13.13 Seybold 1.2.7.2.686 [id number] 2021-02-27 2021-02-27 Outpatient ADA COBURN [id number] [place] 00:00:00 00:00:00 BONNIE Seyb old 2021-02-24 2021-02-24 Outpatient ADA COBURN [id number] [place] 00:00:00 00:00:00 BONNIE Seyb old 2021-02-21 2021-02-21 Outpatient ADA COBURN [id number] [place] 00:00:00 00:00:00 BONNIE Seyb old 2021-02-19 2021-02-19 Outpatient ADA CABALLERO [id number] [place] 11:10:00 11:10:00 Seybol d 2021-02-19 2021-02-19 Outpatient ADA COBURN [id number] [place] 00:00:00 00:00:00 BONNIE Seyb old 2021-02-19 2021-02-19 Outpatient ADA COBURN [id number] [place] 00:00:00 00:00:00 BONNIE Seyb old 2021-02-19 2021-02-19 Outpatient ADA COBURN [id number] [place] 00:00:00 00:00:00 BONNIE Seyb old 2021-02-13 2021-02-13 Outpatient ADA COBURN [id number] [place] 00:00:00 00:00:00 BONNIE Seyb old 2021-02-12 2021-02-12 Outpatient ADA COBURN [id number] [place] 00:00:00 00:00:00 BONNIE Seyb old 2021-02-11 2021-02-11 Outpatient ADA COBURN [id number] [place] 00:00:00 00:00:00 BONNIE Seyb old 2021-02-05 2021-02-05 Outpatient ADA STEIN [id number] [place] 14:00:00 14:00:00 RACHANA Seybol d 2021-02-05 2021-02-05 Outpatient ADA STEIN [id number] [place] 00:00:00 00:00:00 RACHANA Seybol d 2021-02-05 2021-02-05 Outpatient ADA TSEIN [id number] [place] 00:00:00 00:00:00 RACHANA Seybol d 2021-02-05 2021-02-05 Outpatient ADA COBURN [id number] [place] 00:00:00 00:00:00 BONNIE Seyb old 2021-02-01 2021-02-01 Outpatient COVID-MODER ADA CABALLERO [id number] [place] 14:00:00 14:00:00 NA BOOSTERSe ybfritz CARRANZA 2021-02-01 2021-02-01 Office Uday Coburn 1.2.840.114 [id number] [place] 13:09:15 13:24:15 Visit Bonnie Britton 350.1.13.13 Seybold 1.2.7.2.686 [id number] 2021-01-26 2021-01-26 Outpatient ADA COBURN [id number] [place] 00:00:00 00:00:00 BONNIE Seyb old 2021-01-18 2021-01-18 Outpatient ADA COBURN [id number] [place] 00:00:00 00:00:00 BONNIE Seyb old 2021-01-09 2021-01-09 Outpatient JOCELYNEJENNIFERJerome CABALLERO [id number] [place] 00:00:00 00:00:00 MD Fatoumata HONGol flo 2021-01-08 2021-01-08 Outpatient PROVIDERADA [id number] [place] 15:15:00 15:15:00 EVISIT Seybol d 2021-01-08 2021-01-08 Outpatient ADA COBURN [id number] [place] 00:00:00 00:00:00 BONNIE Seyb old 2021-01-04 2021-01-04 Outpatient KATHRYN CABALLERO [id number] [place] 00:00:00 00:00:00 MD Fatoumata HONGol flo 2021-01-03 2021-01-03 Outpatient ADA COBURN [id number] [place] 15:45:00 15:45:00 BONNIE Seyb old 2021-01-02 2021-01-02 Outpatient ADA COBURN [id number] [place] 15:30:00 15:30:00 BONNIE Seyb old 2020-12-28 2020-12-28 Outpatient ADA COBURN [id number] [place] 00:00:00 00:00:00 BONNIE Seyb old 2020-12-21 2020-12-21 Outpatient KATHRYN CABALLERO [id number] [place] 00:00:00 00:00:00 MD Jasiel HONG 2020-12-13 2020-12-13 Outpatient ADA STEIN [id number] [place] 00:00:00 00:00:00 RACHANA Hamol flo 2020-12-12 2020-12-12 Outpatient ADA COBURN [id number] [place] 00:00:00 00:00:00 BONNIE Seyb old 2020-11-28 2020-11-28 Outpatient BYRONADA WINN ADA [id number] [place] 08:15:00 08:15:00 BONNIE Ham old 2020-09-08 2020-09-08 Emergency ER Aki [facility] [id number] [facility] 16:24:00 20:59:00 [facility] 2020-09-08 2020-09-08 Emergency ER [facility] Emergency [id number] [facility] 16:11:00 16:11:00 2020-09-08 2020-09-08 Orders [facility] [id number] 00:00:00 00:00:00 Only [facility] 2020-09-08 2020-09-08 Travel [facility] [id number] [facility] 00:[facility]00 00:00:00 [facility] Results Test Description Test Time Test Comments Results Result Comments Source POC-Glucose meter 2022-07-25 05:52:16 Test Item Value Reference Range Interpretation Comme nts POC-Glucose Meter (test code = 182 mg/dL 70-110 H : TESTED AT [facility] [address] [facility] [address] [address]: Track Equipment Operator/Techni mary ID = [id number] for Ronald Vaughn Lab Interpretation (test code = Abnormal 70994-4) [id number] 05:52:16 Test Item Value Reference Range Interpretation Comments POC-GLUCOSE METER 182 mg/dL 70-110 H : TESTED A T [facility] [address] (BEAKER) (test code [facility], = 1538) [facility] 77 384: Track Equipment Operator/Techni mary ID = [id number] for Ronald Godinez aia COMPREHENSIVE METABOLIC [id number] 04:51:53 Test Item Value Reference Range Interpretation Comments TOTAL PROTEIN 5.9 gm/dL 6.0-8.5 L (BEAKER) (test code = 770) ALBUMIN (AKER) 3.4 g/dL 3.5-5.0 L (test code = 1145) ALKALINE 87 U/L 30-115 PHOSPHATASE ([facility]) (test code = 346) BILIRUBIN TOTAL 0.5 mg/dL 0.1-1.3 (BEAKER) (test code = 377) SODIUM (BEAKER) 135 meq/L 135-148 (test code = 381) POTASSIUM (BEAKER) 4.4 meq/L 3.5-5.5 (test code = 379) CHLORIDE (BEAKER) 104 meq/L 98-106 (test code = 382) CO2 (BEAKER) (test 21 meq/L 20-31 code = 355) BLOOD UREA 22 mg/dL 10-26 NITROGEN (BEAKER) (test code = 354) CREATININE 1.45 mg/dL 0.50-1.20 H (BEAKER) (test code = 358) GLUCOSE RANDOM 157 mg/dL 70-110 H (BEAKER) (test code = 652) CALCIUM (BEAKER) 8.6 mg/dL 8.5-10.5 (test code = 697) AST (SGOT) 18 U/L 5-40 (BEAKER) (test code = 353) ALT (SGPT) 20 U/L 6-50 (BEAKER) (test code = 347) EGFR (BEAKER) 51 Interpretati on of eGFR (test code = 1092) mL/min/1.[address] age Description sq m Result G1 Donna l or high >=90 G2 Mildly decreased 60-89 G3a Mildl y to moderately 45- 59 G3b Moderately to s everely 30-44 G4 Severl y decreased 15-29 G5 Kidney failure <15Reported eGF R is based on the CKD-EPI 2020 equation that d oes not use a race coefficientEsti mated GFR is not as accur ate as Creatinine Linda santamaria in predicting glom erular filtration rate . Estimated GFR is not appl icable for dialysis patien ts Track Equipment Operator ID - [id number] 04:51:53 Test Item Value Reference Range Interpretation Comments LIPASE (BEAKER) (test code = 749) 214 U/L 8-78 H Track Equipment Operator ID - [id number] (HEMOGRAM ONLY)2022-07-25 04:02:51 Test Item Value Reference Range Interpretation Comments WHITE BLOOD CELL COUNT (BEAKER) 9.4 K/ L 4.0-10.0 (test code = 775) RED BLOOD CELL COUNT (BEAKER) 4.44 M/ L 4.20-5.80 (test code = 761) HEMOGLOBIN (BEAKER) (test code = 13.5 GM/DL 13.0-16.8 410) HEMATOCRIT (BEAKER) (test code = 41.0 % 36.0-50.0 411) MEAN CORPUSCULAR VOLUME (BEAKER) 92 fL 82-99 (test code = 753) MEAN CORPUSCULAR HEMOGLOBIN 30.4 pg 27.0-33.0 (BEAKER) (test code = 751) MEAN CORPUSCULAR HEMOGLOBIN CONC 32.9 GM/DL 32.0-36.0 (BEAKER) (test code = 752) RED CELL DISTRIBUTION WIDTH 13.6 % 12.0-15.0 (BEAKER) (test code = 412) PLATELET COUNT (BEAKER) (test 186 K/CU MM 150-430 code = 756) MEAN PLATELET VOLUME (BEAKER) 9.6 fL 6.0-11.5 (test code = 754) NUCLEATED RED BLOOD CELLS 0 /100 WBC 0-0 (BEAKER) (test code = 413) POCT-GLUCOSE [id number] 20:11:16 Test Item Value Reference Range Interpretation Comments POC-GLUCOSE METER 228 mg/dL 70-110 H : TESTED A T [facility] [address] (BEAKER) (test code [address], = 1538) [place] [address]: Track Equipment Operator/Techni mary ID = [id number] for Ronald Godinez aia POCT-GLUCOSE [id number] 16:23:30 Test Item Value Reference Range Interpretation Comments POC-GLUCOSE METER 266 mg/dL 70-110 H : TESTED A T [facility] [address] (BEAKER) (test code [address], = 1538) [place] [address]: Track Equipment Operator/Techni mary ID = [id number] for S trace, Xiomara "Vonda" POCT-GLUCOSE [id number] 13:16:33 Test Item Value Reference Range Interpretation Comments POC-GLUCOSE METER 217 mg/dL 70-110 H : TESTED A T [facility] [address] (BEAKER) (test code [address], = 1538) [place] [address]: Track Equipment Operator/Techni mary ID = [id number] for S mith, Xiomara "Vonda" RAD, ABDOMEN SERIES W/ UPRIGHT PA [id number] 12:25:00Reason for exam:- >Abd distentionReason for exam:->Constipation [facility] 1950 Sex: MFINAL REPORT RAD, ABDOMEN SERIES W/ UPRIGHT PA CHEST CLINICAL INDICATION: Abd distentionConstipation COMPARISON: None FINDINGS: An upright view the chest and upright and supine viewsof the abdomen. Frontal view of the chest reveals no free subdiaphragmatic air. There is no focal consolidation. The costophrenic sulci are clear. Mediastinal contours are unremarkable. There is no bowel dilation. There are no abnormal calcifications. IMPRESSION: Nonobstructed bowel gas pattern. Unremarkable frontal view of the chest. Signed: Ketty Sanchez Verified Date/Time: 07/24/2022 12:25:56 Reading Location: [address] Reading Room Urine [id number] 09:54:07 Test Item Value Reference Range Interpretation Comments Result (test code = >100,000 col/mL skin 6463-4) katlyn LESLIE (test code = LESLIE) [facility] [id number] 06:10:51 Test Item Value Reference Range Interpretation Comments TOTAL PROTEIN 6.0 gm/dL 6.0-8.5 (BEAKER) (test code = 770) ALBUMIN (BEAKER) 3.5 g/dL 3.5-5.0 (test code = 1145) ALKALINE 79 U/L 30-115 PHOSPHATASE (BEAKER) (test code = 346) BILIRUBIN TOTAL 0.4 mg/dL 0.1-1.3 (BEAKER) (test code = 377) SODIUM (BEAKER) 136 meq/L 135-148 (test code = 381) POTASSIUM (BEAKER) 5.1 meq/L 3.5-5.5 (test code = 379) CHLORIDE (BEAKER) 104 meq/L 98-106 (test code = 382) CO2 (BEAKER) (test 23 meq/L 20-31 code = 355) BLOOD UREA 29 mg/dL 10-26 H NITROGEN (BEAKER) (test code = 354) CREATININE 1.85 mg/dL 0.50-1.20 H (BEAKER) (test code = 358) GLUCOSE RANDOM 136 mg/dL 70-110 H (BEAKER) (test code = 652) CALCIUM (BEAKER) 8.6 mg/dL 8.5-10.5 (test code = 697) AST (SGOT) 21 U/L 5-40 (BEAKER) (test code = 353) ALT (SGPT) 27 U/L 6-50 (BEAKER) (test code = 347) EGFR (BEAKER) 38 Interpretati on of eGFR (test code = 1092) mL/min/1.[address] age Description sq m Result G1 Donna l or high >=90 G2 Mildly decreased 60-89 G3a Mildl y to moderately 45- 59 G3b Moderately to s everely 30-44 G4 Severl y decreased 15-29 G5 Kidney failure <15Reported eGF R is based on the CKD-EPI 2021 equation that d oes not use a race coefficientEsti mated GFR is not as accur ate as Creatinine Linda santamaria in predicting glom erular filtration rate . Estimated GFR is not appl icable for dialysis patien ts Track Equipment Operator ID - [id number] 06:10:51 Test Item Value Reference Range Interpretation Comments LIPASE (BEAKER) (test code = 749) 269 U/L 8-78 H Track Equipment Operator ID - [id number] 05:56:28 Test Item Value Reference Range Interpretation Comments POC-GLUCOSE METER 146 mg/dL 70-110 H : Notified RN/MD: TESTED (BEAKER) (test code AT [facility] [address] [facility] = 1538) [facility] [place] [place] [address]: Track Equipment Operator/Techni mary ID = [id number] for Zeny Silva CBC (HEMOGRAM ONLY)2022-07-24 05:48:03 Test Item Value Reference Range Interpretation Comments WHITE BLOOD CELL COUNT 11.3 K/ L 4.0-10.0 H (BEAKER) (test code = 775) RED BLOOD CELL COUNT 4.72 M/ L 4.20-5.80 (BEAKER) (test code = 761) HEMOGLOBIN (BEAKER) 14.2 GM/DL 13.0-16.8 (test code = 410) HEMATOCRIT (BEAKER) 44.3 % 36.0-50.0 (test code = 411) MEAN CORPUSCULAR 94 fL 82-99 Discordant result VOLUME (BEAKER) (test compar ed to previous code = 753) result. Clinica l correlation required. MEAN CORPUSCULAR 30.1 pg 27.0-33.0 HEMOGLOBIN (BEAKER) (test code = 751) MEAN CORPUSCULAR 32.1 GM/DL 32.0-36.0 HEMOGLOBIN CONC (BEAKER) (test code = 752) RED CELL DISTRIBUTION 13.8 % 12.0-15.0 WIDTH (BEAKER) (test code = 412) PLATELET COUNT 198 K/CU MM 150-430 (BEAKER) (test code = 756) MEAN PLATELET VOLUME 9.7 fL 6.0-11.5 (BEAKER) (test code = 754) NUCLEATED RED BLOOD 0 /100 WBC 0-0 CELLS (BEAKER) (test code = 413) POCT-GLUCOSE [id number] 21:00:44 Test Item Value Reference Range Interpretation Comments POC-GLUCOSE METER 153 mg/dL 70-110 H : Notified RN/MD: TESTED (BEAKER) (test code AT [facility] [address] [address] = 1538) [facility] [place] [place] [address]: Track Equipment Operator/Techni mary ID = [id number] for Rox Mcgregor HEMOGLOBIN [id number] 17:55:07 Test Item Value Reference Range Interpretation Comments HEMOGLOBIN A1C (BEAKER) (test code = 12.4 % 4.3-6.1 H 368) Track Equipment Operator ID - [id number] 16:32:50 Test Item Value Reference Range Interpretation Comments POC-GLUCOSE METER 149 mg/dL 70-110 H : TESTED A T [facility] [address] (BEAKER) (test code [facility] [address] [facility], = 1538) [place] [address]: Track Equipment Operator/Techni mary ID = [id number] for Jina Webber POCT-GLUCOSE [id number] 11:27:07 Test Item Value Reference Range Interpretation Comments POC-GLUCOSE METER 199 mg/dL 70-110 H : TESTED A T [facility] [address] (BEAKER) (test code [facility] [address] [facility], = 1538) [place] [address]: Track Equipment Operator/Techni mary ID = [id number] for Jina Webber POCT-GLUCOSE [id number] 05:59:52 Test Item Value Reference Range Interpretation Comments POC-GLUCOSE METER 202 mg/dL 70-110 H : Notified RN/MD: TESTED (BEAKER) (test code AT [facility] [address] [facility] = 1538) [facility] [address]: Track Equipment Operator/Techni mary ID = [id number] for Shola Valdez BASIC METABOLIC [id number] 04:40:28 Test Item Value Reference Range Interpretation Comments SODIUM (BEAKER) 134 meq/L 135-148 L (test code = 381) POTASSIUM 4.2 meq/L 3.5-5.5 (BEAKER) (test code = 379) CHLORIDE (BEAKER) 99 meq/L 98-106 (test code = 382) CO2 (BEAKER) 22 meq/L 20-31 (test code = 355) BLOOD UREA 41 mg/dL 10-26 H NITROGEN (BEAKER) (test code = 354) CREATININE 2.11 mg/dL 0.50-1.20 H (BEAKER) (test code = 358) GLUCOSE RANDOM 216 mg/dL 70-110 H (BEAKER) (test code = 652) CALCIUM (BEAKER) 9.0 mg/dL 8.5-10.5 (test code = 697) EGFR (BEAKER) 33 Interpretatio n of eGFR (test code = mL/min/1.73 values Stage De scription 1092) sq m Result G1 Donna l or high >=90 G2 Mildly decreased 60-89 G3a Mildl y to moderately 45-5 9 G3b Moderately to s everely 30-44 G4 Severl y decreased 15-29 G5 Kidney failure <15Reported eGF R is based on the CKD-EPI 202 equation that d oes not use a race coefficientEsti mated GFR is not as accur ate as Creatinine Linda rosalio in predicting glom erular filtration rate . Estimated GFR is not appl icable for dialysis patien ts Track Equipment Operator ID - [id number] 04:35:56 Test Item Value Reference Range Interpretation Comments PHOSPHORUS (BEAKER) (test code = 4.6 mg/dL 2.5-4.5 H 604) Track Equipment Operator ID - [id number] 04:35:56 Test Item Value Reference Range Interpretation Comments TRIGLYCERIDES (BEAKER) (test code = 390 mg/dL 540) CHOLESTEROL (BEAKER) (test code = 192 mg/dL 631) HDL CHOLESTEROL (BEAKER) (test code 43 mg/dL = 976) LDL CHOLESTEROL CALCULATED (BEAKER) 71 mg/dL (test code = 633) Triglyceride Reference Range: Low Risk <150 Borderline 150-199 High Risk 200- 499 Very High Risk >=500Cholesterol Reference Range: Low Risk <200 Borderline 200-239 High Risk >240HDL Cholesterol Reference Range: Low Risk >=60 High Risk <40LDL Cholesterol Reference Range: Optimal <100 Near Optimal 100-129 Borderline 130-159 High 160-189 Very High >=190 Track Equipment Operator ID - [id number] 04:35:55 Test Item Value Reference Range Interpretation Comments MAGNESIUM (BEAKER) (test code = 2.4 mg/dL 1.5-3.0 627) Track Equipment Operator ID - [id number] W/PLT COUNT & AUTO [id number] 04:08:44 Test Item Value Reference Range Interpretation Comments WHITE BLOOD CELL COUNT (BEAKER) 12.8 K/ L 4.0-10.0 H (test code = 775) RED BLOOD CELL COUNT (BEAKER) 4.89 M/ L 4.20-5.80 (test code = 761) HEMOGLOBIN (BEAKER) (test code = 14.8 GM/DL 13.0-16.8 410) HEMATOCRIT (BEAKER) (test code = 43.6 % 36.0-50.0 411) MEAN CORPUSCULAR VOLUME (BEAKER) 89 fL 82-99 (test code = 753) MEAN CORPUSCULAR HEMOGLOBIN 30.3 pg 27.0-33.0 (BEAKER) (test code = 751) MEAN CORPUSCULAR HEMOGLOBIN CONC 33.9 GM/DL 32.0-36.0 (BEAKER) (test code = 752) RED CELL DISTRIBUTION WIDTH 13.2 % 12.0-15.0 (BEAKER) (test code = 412) PLATELET COUNT (BEAKER) (test 245 K/CU MM 150-430 code = 756) MEAN PLATELET VOLUME (BEAKER) 9.9 fL 6.0-11.5 (test code = 754) NUCLEATED RED BLOOD CELLS 0 /100 WBC 0-0 (BEAKER) (test code = 413) NEUTROPHILS RELATIVE PERCENT 85 % (BEAKER) (test code = 429) LYMPHOCYTES RELATIVE PERCENT 8 % (BEAKER) (test code = 430) MONOCYTES RELATIVE PERCENT 6 % (BEAKER) (test code = 431) EOSINOPHILS RELATIVE PERCENT 0 % (BEAKER) (test code = 432) BASOPHILS RELATIVE PERCENT 0 % (BEAKER) (test code = 437) NEUTROPHILS ABSOLUTE COUNT 10.92 K/ L 1.80-8.00 H (BEAKER) (test code = 670) LYMPHOCYTES ABSOLUTE COUNT 1.00 K/ L 1.48-4.50 L (BEAKER) (test code = 414) MONOCYTES ABSOLUTE COUNT (BEAKER) 0.81 K/ L 0.00-1.30 (test code = 415) EOSINOPHILS ABSOLUTE COUNT 0.00 K/ L 0.00-0.50 (BEAKER) (test code = 416) BASOPHILS ABSOLUTE COUNT (BEAKER) 0.02 K/ L 0.00-0.20 (test code = 417) IMMATURE GRANULOCYTES-RELATIVE 0.50 % 0.00-0.00 H PERCENT (BEAKER) (test code = 2801) LACTIC ACID, [id number] 00:30:21 Test Item Value Reference Range Interpretation Comments LACTATE BLOOD VENOUS 2.12 mmol/L 0.50-2.20 Specime n slightly (2) (BEAKER) (test hemolyzed code = 2877) Track Equipment Operator ID - [id number] 23:52:52 Test Item Value Reference Range Interpretation Comments POC-GLUCOSE METER 240 mg/dL 70-110 H : Notified RN/MD: TESTED (PAULA) (test code AT [facility] [address] [address] = 1538) [place] [address]: Track Equipment Operator/Techni mary ID = [id number] for Shola Valdez CT, [id number] 19:53:00Unlisted Reason for Exam - Click Yes and Enter Reason Below->Yes Unlisted Reason for Exam->epgiastric pain, n/v/d Protocol Please Specify:->Standard Protocol Will this procedure require oral contrast?->[facility] : 1950 Sex: MFINAL REPORT CT, ABDOMEN \\T\\ PELVIS, WITHOUT IV CONTRAST HISTORY: Abdominal pain,acute, nonlocalizedepigastric pain, n/v/d COMPARISON: CT chest 10/03/2016, CT abdomen pelvis 03/02/2003 TECHNIQUE: Computer tomography of the abdomen and pelvis without intravenous contrast. Dose modulation, iterative reconstruction, and/or weight-based adjustment of the mA/kV was utilized to reduce the radiation dose to as low as reasonably achievable. FINDINGS: Lack of intravenous contrast compromises evaluation of perfusion and for isodense lesions. Lower Thorax: Coronary artery calcifications. Liver: Decreased in attenuation. A few geographic regions of fat sparing.Gallbladder and bile ducts: Surgically absent gallbladder. No biliary dilatation. Spleen: Unremarkable. Pancreas: Mild peripancreatic fat stranding. A few punctate pancreatic calcifications suggesting chronic pancreatitis. Adrenals:UnremarkableKidneys and ureters: A few simple appearing right renal cysts measuring up to 3.4 cm. A h emorrhagic/proteinaceous hyperattenuating 1.2 cm left lower pole renal cyst. An indeterminate intermediate attenuation 3.1 cm lesion in the posterior interpolar region on the right which measures 40 Hounsfield units. Punctate nonobstructive right lower pole renal calculus. No hydronephrosis bilaterally Bowel: Nondilated bowel with no wall thickening. Appendix not visualized, but there is no strandingin the right lower quadrant. Bladder: Unremarkable.Reproductive organs: Unremarkable. Lymph nodes: Unremarkable. Peritoneum: Unremarkable. Vessels: Moderate atherosclerotic calcifications. Abdominal wall: Unremarkable.Bones: Multilevel degenerative changes of the lumbar spine. Partially visualized right total hip arthroplasty IMPRESSION: Lack of intravenous contrast compromises evaluation of perfusion and for isodense lesions. 1.Findings concerning for mild acute on chronic pancreatitis. Cannot evaluate for pancreatic necrosis without IV contrast. 2.Hepatic steatosis. 3.An indeterminate intermediate attenuation 3.1 cm right renal lesion, follow-up with renal mass protocol abdominal MRI or CT without and with IV contrast on a nonemergent basis. 4.Punctate nonobstructive right renal calculus. Signed: Davis Smith Verified Date/Time: 07/22/2022 19:53:24 RAD, CHEST, 2 [id number] 19:14:00Reason for exam:- >ABDOMINAL PAINReason for exam:->[facility] 1950 Sex: MFINAL REPORT TECHNIQUE: Frontal and lateral views of the chest. INDICATION: ABDOMINAL PAINDYSURIA COMPARISON: 09/08/2020 FINDINGS: LINES/TUBES: None. LUNGS: Small calcified granulomais present within the left mid to lower lung, unchanged. No consolidation or pulmonary edema. PLEURA: No pleural effusion or pneumothorax. HEART AND MEDIASTINUM: The cardiomediastinal contour within normal limits. SOFT TISSUES AND BONES: Cholecystectomy clips are noted.. IMPRESSION:No acute cardiopulmonary process. Signed: Anjali Gannon MDReport Verified Date/Time: 07/22/2022 19:14:21 SARS-CoV2/Influenza/RSV RT-PCR (Symptomatic ONLY)2022-07-22 19:04:44 Test Item Value Reference Interpretation Comments Range SARS-COV2/RT-PCR Negative Negative The SARS-Co V-2 (test code = target nucleic 51403-2) acids are not detected in thi s specimen. Negat derik results do not preclude SARS-C oV-2 infection and should not be u sed as the sole bas is for patient management decisions. Nega tive results must be combined with clinical observations, patient history , and epidemiolog ical information. A false negative result may occu r if a specimen is improperly collected, transported or handled. This ARS CoV-2 test is a rapid, real-suzanne e RT-PCR test intended for e qualitative detection of nucleic acid fr om SARS-CoV-2 in a nasopharyngeal swab specimen [facility] from individual s suspected of COVID-19 by the ir healthcare provider. Influenza A RT-PCR Negative Negative The Flu A target (test code = [place] [address]-7) not detected in this specimen. Influenza B RT-PCR Negative Negative The Flu B target (test code = [place] 78[address]-0) not detected in this specimen. RSV by RT-PCR (test Negative Negative The RSV target code = 47356-4) nucleic acid s are not detected in this specimen. LESLIE (test code = The presence of LESLIE) SARS-CoV-2/FLU/RSV viral nucleic acids cannot rule out co-infections or disease caused by other viral or bacterial pathogens. As with any molecular test, mutations within the target regions of the Xpert Xpress SARS-CoV-2/Flu/RSV test could affect primer and/or probe binding resulting in failure to detect the presence of virus or the virus being detected less predictably. False negative results may occur if the virus is present at levels below the analytical limit of detection in this specimen. This Xpert Xpress SARS-CoV-2/Flu/RSV test is a rapid, real-time RT-PCR test intended for the qualitative detection of nucleic acid from Xpert Xpress SARS-CoV-2/Flu/RSV in a nasopharyngeal swab specimen collected from individuals suspected of Xpert Xpress SARS-CoV-2/Flu/RSV by their healthcare provider. Results from [facility] Xpert Xpress SARS-CoV-2/Flu/RSV test should be correlated with the clinical history, epidemiological data, and other data available to the clinician evaluating the patient. Viral nucleic acid may persist in vivo, independent of virus viability. Detection of analyte target(s) does not imply that the corresponding virus(es) are infectious or are the causative agents for clinical symptoms. This test has not been Food and Drug Administration (FDA) cleared or approved and has been authorized by FDA under an Emergency Use Authorization (EUA). This EUA will be effective until the declaration that circumstances exist justifying the authorization of the emergency use of in vitro diagnostic tests for detection and/or diagnosis of COVID-19 is terminated under Section 564(b)(2) of the Act or the EUA is revoked under Section 564(g) of the Act. Fact Sheet for Healthcare Providers:https://w Jobbr/Docu ments/Xpert%20Xpres s%20SARS%20CoV-2/Fa ct%20Sheets/302-390 2%44UJLD-FUC-1%20HE ALTHCARE%20PROVIDER S%20FACT%20SHEET.pd f Fact Sheet for Healthcare Patients:https://judith [employer]/Docum ents/Xpert%20Xpress %20SARS%20Cov-2/Fac t%20Sheets/302-3801 %72ADUJ-OPC-8%20PAT IENT%20FACT%20SHEET .pdf Lab Interpretation Normal (test code = 35997-7) [facility]RSV [id number] 19:04:44 Test Item Value Reference Range Interpretation Comments SARS-COV2/RT-PCR Negative Negative The SARS-Co V-2 target (test code = nucleic acids a re not 1963967) detected in thi s specimen. Negat derik results do not preclude SARS-CoV-2 infe ction and should not be u sed as the sole basis for patient management deci sions. Negative result s must be combined with c linical observations, p atient history, and epidemiological information. A false negative result may occur if a specimen i s improperly simon ected, transported or handled. This SARS CoV-2 test is a rapid, real-suzanne e RT-PCR test intended f or the qualitative det ection of nucleic acid fr om SARS-CoV-2 in a nasopharyngeal swab specimen collec sandra from individuals mauri pected of COVID-19 by the [facility]. INFLUENZA A RT-PCR Negative Negative The Flu A target nucleic (test code = acids are not d etected in 3457547) this specimen. INFLUENZA B RT-PCR Negative Negative The Flu B target nucleic (test code = acids are not d etected in 5297668) this specimen. RSV RT-PCR (test Negative Negative The RSV tar get nucleic code = 1897073) acids are no t detected in this specimen. The presence of SARS-CoV-2/FLU/RSV viral nucleic acids cannot rule out co- infections or disease caused by other viral or bacterial pathogens. As with any molecular test, mutations within the target regions of the Xpert Xpress SARS-CoV-2/Flu/RSV test could affect primer and/or probe binding resulting in failure to detect the presence of virus or the virus being detected less predictably. False negative results may occur if the virus is present at levels below the analytical limit of detection in thisspecimen.This Xpert Xpress SARS-CoV-2/Flu/RSV test is a rapid, real-time RT-PCR test intended for the qualitative detection of nucleic acid from Xpert Xpress SARS-CoV-2/Flu/RSV in a nasopharyngeal swabspecimen collected from individuals suspected of Xpert Xpress SARS-CoV-2/Flu/RSV by their healthcareprovider. [facility] from [facility] Xpert Xpress SARS-CoV-2/Flu/RSV test should be correlated with the clinical history, epidemiological data, and other data available to the clinician evaluating the patient. Viral nucleic acid may persist in vivo, independent of virus viability. Detection of analyte target(s)does not imply that the corresponding virus(es) are infectious or are the causative agents for clinical symptoms.This test has not been Food and Drug Administration (FDA) cleared or approved and has been authorized by FDA under an Emergency Use Authorization (EUA). This EUA will be effective until thedeclaration that circumstances exist justifying the authorization of the emergency use of in vitro diagnostic tests for detection and/or diagnosis of COVID-19 is terminated under Section 564(b)(2) of the Act or the EUA is revoked under Section 564(g) of the Act.Fact Sheet for Healthcare Providers:https ://www.[employer]/Documents/Xpert%20Xpress%20SARS%20CoV-2/Fact%20Sheets/302-390 2%45VHGO-FJF-1%20HEALTHCARE%20PROVIDERS%20FACT%20SHEET.pdfFact Sheet for Healthcare Patients:https://www.Cov[employer]/Docum ents/Xpert%20Xpress%20SARS%20Cov-2/Fact%20Sheets/3023801%20ARAS-TVC-3%20PATIENT %20FACT%20SHEET.pdfEVERT [id number] 18:41:18 Test Item Value Reference Range Interpretation Comments TROPONIN I (BEAKER) (test code = 0.01 ng/mL 0.00-0.15 397) Troponin I (TnI) levels must be interpreted in the context of the presenting symptoms and the clinical findings. Elevated TnI levels indicate myocardial damage, but are not specific for ischemic heart disease. Elevated TnI levels are seen in patients with other cardiac conditions (including myocarditis and congestive heart failure), and slight TnI elevations occur in patients with other conditions, including sepsis, renal failure, acidosis, acute neurological disease, and persistent tachyarrhythmia.Track Equipment Operator ID - [id number] METABOLIC [id number] 18:36:13 Test Item Value Reference Range Interpretation Comments TOTAL PROTEIN 7.2 gm/dL 6.0-8.5 (BEAKER) (test code = 770) ALBUMIN (BEAKER) 4.2 g/dL 3.5-5.0 (test code = 1145) ALKALINE 90 U/L 30-115 PHOSPHATASE (BEAKER) (test code = 346) BILIRUBIN TOTAL 0.3 mg/dL 0.1-1.3 (BEAKER) (test code = 377) SODIUM (BEAKER) 132 meq/L 135-148 L (test code = 381) POTASSIUM (BEAKER) 4.2 meq/L 3.5-5.5 (test code = 379) CHLORIDE (BEAKER) 94 meq/L 98-106 L (test code = 382) CO2 (BEAKER) (test 23 meq/L 20-31 code = 355) BLOOD UREA 43 mg/dL 10-26 H NITROGEN (BEAKER) (test code = 354) CREATININE 2.43 mg/dL 0.50-1.20 H (BEAKER) (test code = 358) GLUCOSE RANDOM 231 mg/dL 70-110 H (BEAKER) (test code = 652) CALCIUM (BEAKER) 9.9 mg/dL 8.5-10.5 (test code = 697) AST (SGOT) 22 U/L 5-40 (BEAKER) (test code = 353) ALT (SGPT) 29 U/L 6-50 (BEAKER) (test code = 347) EGFR (BEAKER) 28 Interpretatio n of eGFR (test code = 1092) mL/min/1.73 values S tage Description sq m Result G1 Donna l or high >=90 G2 Mildly decreased 60-89 G3a Mildl y to moderately 45-5 9 G3b Moderately to s everely 30-44 G4 Severl y decreased 15-29 G5 Kidney failure <15Reported eGF R is based on the CKD-EPI 2021 equation that d oes not use a race coefficientEsti mated GFR is not as accur ate as Creatinine Linda rosalio in predicting glom erular filtration rate . Estimated GFR is not appl icable for dialysis patien ts Track Equipment Operator ID - [id number] 18:31:17 Test Item Value Reference Range Interpretation Comments LIPASE (BEAKER) (test code = 749) 403 U/L 8-78 H Track Equipment Operator ID - [id number] w/Microscopic + Reflex to [id number] 18:21:02 Test Item Value Reference Range Interpretation Comments Color, UA (test code Yellow = 5778-6) Clarity, UA (test Slightly Cloudy code = 5767-9) Specific [place], UA 1.024 1.001-1.035 (test code = 5811-5) pH, UA (test code = 5.0 5.0-8.0 5803-2) Protein, UA (test Negative Negative code = 28763-8) Glucose, UA (test >500 mg/dL Negative A code = 365) Ketones, UA (test Negative Negative code = 2514-8) Bilirubin, UA (test Negative Negative code = 77113-1) Blood, UA (test code Small Negative A = 69775-1) Nitrite, UA (test Negative Negative code = 5802-4) Leukocytes, UA (test Moderate Negative A code = 5799-2) Urobilinogen, UA (test code = 67202-0) RBC, UA (test code = 3 See_Comment [Autom ated 97093-9) message] The system which generated this result transmit sandra reference range : /HPF. The reference range was not used to interpret this result as normal/abnormal . WBC, UA (test code = 79 See_Comment [Autom ated 5821-4) message] The system which generated this result transmit sandra reference range : /HPF. The reference range was not used to interpret this result as normal/abnormal . Mucus (test code = Rare 8247-9) Squam Epithel, UA 3 See_Comment [Automate d (test code = 17381-8) messag e] The system which generated this result transmit sandra reference range : /HPF. The reference range was not used to interpret this result as normal/abnormal . Specimen Source (test code = 2795) LESLIE (test code = LESLIE) Track Equipment Operator ID - [auto]Track Equipment Operator ID - tech Lab Interpretation Abnormal (test code = 77064-4) [facility] UR[facility] [id number] 18:21:02 Test Item Value Reference Range Interpretation Comments COLOR (BEAKER) (test code = Yellow 470) CLARITY (BEAKER) (test code = Slightly Cloudy 469) SPECIFIC GRAVITY UA (BEAKER) 1.024 1.001-1.035 (test code = 468) PH UA (BEAKER) (test code = 5.0 5.0-8.0 467) PROTEIN UA (BEAKER) (test Negative Negative code = 464) GLUCOSE UA (BEAKER) (test >500 mg/dL Negative A code = 365) KETONES UA (BEAKER) (test Negative Negative code = 371) BILIRUBIN UA (BEAKER) (test Negative Negative code = 462) BLOOD UA (BEAKER) (test code Small Negative A = 461) NITRITE UA (BEAKER) (test Negative Negative code = 465) LEUKOCYTE ESTERASE UA Moderate Negative A (BEAKER) (test code = 466) UROBILINOGEN UA (BEAKER) < (test code = 463) RBC UA (BEAKER) (test code = 3 /HPF 519) WBC UA (BEAKER) (test code = 79 /HPF 520) MUCUS (BEAKER) (test code = Rare 1574) SQUAMOUS EPITHELIAL (BEAKER) 3 /HPF (test code = 516) SOURCE(BEAKER) (test code = 0595) Track Equipment Operator ID - [auto]Track Equipment Operator ID - techCBC W/PLT COUNT & AUTO DIFFERENTIAL 2022-07-22 18:17:07 Test Item Value Reference Range Interpretation Comments WHITE BLOOD CELL COUNT (BEAKER) 14.2 K/ L 4.0-10.0 H (test code = 775) RED BLOOD CELL COUNT (BEAKER) 5.08 M/ L 4.20-5.80 (test code = 761) HEMOGLOBIN (BEAKER) (test code = 15.4 GM/DL 13.0-16.8 410) HEMATOCRIT (BEAKER) (test code = 45.3 % 36.0-50.0 411) MEAN CORPUSCULAR VOLUME (BEAKER) 89 fL 82-99 (test code = 753) MEAN CORPUSCULAR HEMOGLOBIN 30.3 pg 27.0-33.0 (BEAKER) (test code = 751) MEAN CORPUSCULAR HEMOGLOBIN CONC 34.0 GM/DL 32.0-36.0 (BEAKER) (test code = 752) RED CELL DISTRIBUTION WIDTH 13.2 % 12.0-15.0 (BEAKER) (test code = 412) PLATELET COUNT (BEAKER) (test 264 K/CU MM 150-430 code = 756) MEAN PLATELET VOLUME (BEAKER) 9.6 fL 6.0-11.5 (test code = 754) NUCLEATED RED BLOOD CELLS 0 /100 WBC 0-0 (BEAKER) (test code = 413) NEUTROPHILS RELATIVE PERCENT 84 % (BEAKER) (test code = 429) LYMPHOCYTES RELATIVE PERCENT 7 % (BEAKER) (test code = 430) MONOCYTES RELATIVE PERCENT 7 % (BEAKER) (test code = 431) EOSINOPHILS RELATIVE PERCENT 0 % (BEAKER) (test code = 432) BASOPHILS RELATIVE PERCENT 0 % (BEAKER) (test code = 437) NEUTROPHILS ABSOLUTE COUNT 11.95 K/ L 1.80-8.00 H (BEAKER) (test code = 670) LYMPHOCYTES ABSOLUTE COUNT 1.04 K/ L 1.48-4.50 L (BEAKER) (test code = 414) MONOCYTES ABSOLUTE COUNT (BEAKER) 1.06 K/ L 0.00-1.30 (test code = 415) EOSINOPHILS ABSOLUTE COUNT 0.01 K/ L 0.00-0.50 (BEAKER) (test code = 416) BASOPHILS ABSOLUTE COUNT (BEAKER) 0.05 K/ L 0.00-0.20 (test code = 417) IMMATURE GRANULOCYTES-RELATIVE 0.80 % 0.00-0.00 H PERCENT (BEAKER) (test code = 2801) POC-Glucose [id number] 20:33:00 Test Item Value Reference Range Interpretation Comments POC-Glucose Meter (test 365 mg/dL 70-110 H : TE STED AT [facility] code = 1538) [id number] [facility] [address]: Track Equipment Operator/Techni mary ID = [id number] for Justo Shook Lab Interpretation (test Abnormal code = 08556-9) [facility] [id number] 20:33:00 Test Item Value Reference Range Interpretation Comments POC-GLUCOSE METER 365 mg/dL 70-110 H : TESTED A T [facility] [address] (BEAKER) (test code [facility], = 1538) [facility] 77 [address]: Track Equipment Operator/Techni mary ID = [id number] for Justo Amaya CT, BRAIN, WITHOUT [id number] 19:17:00Reason for exam:->FALLReason for exam:->HEADACHEReason for exam:->NAUSEAWhat is the patient's sedation requirement?->No Sedation [facility] : 1950 Sex: MFINAL REPORT CT, BRAIN, WITHOUT CONTRAST INDICATION: Unlisted Reason for ExamFALLHEADACHENAUSEA TECHNIQUE: Noncontrast axial imaging was obtained from the vertex to the skull base. Axial images were reconstructed using a bone algorithm. DOSE REDUCTION: Dose modulation, iterative reconstruction, and/or weight-based adjustment of the mA/kV was utilized to reduce the radiation dose toas low as reasonably achievable. COMPARISON: CT 12/11/2018 FINDINGS: Intracranial: No intracranial hemorrhage or abnormal extra-axial collection. No evidence of acute territorial infarct. No mass effect. No hydrocephalus. Generalized cerebral atrophy with ex vacuo dilatation of the ventricular system proportionate to sulci. Scattered foci of hypoattenuation within the periventricular and subcortical white matter are a nonspecific finding commonly attributed to chronic small vessel ischemic disease. Osseous structures: No fracture. No suspicious lesion. Paranasal sinuses and mastoid air cells: No evid ence of sinusitis. Mastoids are clear. Orbital contents: Globes are intact. IMPRESSION: No acute intracranial hemorrhage. If there is persistent clinical concern for intracranial pathology, MR examination is recommended for further characterization. Signed: Kaila Diaz Verified Date/Time: 09/08/2020 19:17:38 B-type natriuretic factor (BNP)2020-09-08 18:42:00 Test Item Value Reference Range Interpretation Comments BNP (test code = 17488-1) <10 0-100 LESLIE (test code = LESLIE) Track Equipment Operator ID - [id number] Lab Interpretation (test Normal code = 30431-1) [facility] (BNP)2020-09-08 18:42:00 Test Item Value Reference Range Interpretation Comments B-TYPE NATRIURETIC PEPTIDE (BEAKER) < pg/mL 0-100 (test code = 700) Track Equipment Operator ID - [id number] metabolic [id number] 17:58:00 Test Item Value Reference Range Interpretation Comments Protein, Total (test 7.1 See_Comment [Autom ated code = 2885-2) message] The system which generated this result transmitted reference range : 6.0 - 8.5 gm/dL . The reference r elizabeth was not used to interpret this result as normal/abnormal . Albumin (test code = 3.8 g/dL 3.5-5.0 38381-9) Alkaline Phosphatase 90 U/L 30-115 (test code = 6768-6) Total Bilirubin (test 0.3 mg/dL 0.1-1.3 code = 1975-2) Sodium (test code = 130 meq/L 135-148 L 2951-2) Potassium (test code = 4.9 meq/L 3.5-5.5 2823-3) Chloride (test code = 95 meq/L 98-106 L 2075-0) CO2 (test code = 24 meq/L 20-31 2028-9) BUN (test code = 32 mg/dL 10-26 H 3094-0) Creatinine (test code = 2.29 mg/dL 0.50-1.20 H 2160-0) Glucose (test code = 423 mg/dL 70-110 HH 2345-7) Calcium (test code = 9.2 mg/dL 8.5-10.5 73916-7) AST (test code = 16 U/L 5-40 1920-8) ALT (test code = 23 U/L 6-50 1742-6) EGFR (test code = 28 mL/min/1.73 [place] [address]-7) NOT ACCURATE CREATININE CLEARANCE IN PREDICTING GLOMERULAR FILTRATION RATE . ESTIMATED GFR I S NOT APPLICABLE FOR DIALYSIS PATIEN TS. Lab Interpretation Abnormal (test code = 66010-8) [facility]ase[facility] 17:58:00 Test Item Value Reference Range Interpretation Comments Lipase (test code = 3040-3) 30 U/L 8-78 Lab Interpretation (test code = Normal 05681-8) [facility] HospitalCOMPREHENSIVE METABOLIC [id number] 17:58:00 Test Item Value Reference Range Interpretation Comments TOTAL PROTEIN 7.1 gm/dL 6.0-8.5 (BEAKER) (test code = 770) ALBUMIN (BEAKER) 3.8 g/dL 3.5-5.0 (test code = 1145) ALKALINE PHOSPHATASE 90 U/L 30-115 (BEAKER) (test code = 346) BILIRUBIN TOTAL 0.3 mg/dL 0.1-1.3 (BEAKER) (test code = 377) SODIUM (BEAKER) (test 130 meq/L 135-148 L code = 381) POTASSIUM (BEAKER) 4.9 meq/L 3.5-5.5 (test code = 379) CHLORIDE (BEAKER) 95 meq/L 98-106 L (test code = 382) CO2 (BEAKER) (test 24 meq/L 20-31 code = 355) BLOOD UREA NITROGEN 32 mg/dL 10-26 H (BEAKER) (test code = 354) CREATININE (BEAKER) 2.29 mg/dL 0.50-1.20 H (test code = 358) GLUCOSE RANDOM 423 mg/dL 70-110 HH (BEAKER) (test code = 652) CALCIUM (BEAKER) 9.2 mg/dL 8.5-10.5 (test code = 697) AST (SGOT) (BEAKER) 16 U/L 5-40 (test code = 353) ALT (SGPT) (BEAKER) 23 U/L 6-50 (test code = 347) EGFR (BEAKER) (test 28 mL/min/1.73 ESTIMA SANDRA GFR IS code = 1092) sq m NOT ACCURATE CREATININE CLEARANCE IN PREDICTING GLOMERULAR FILTRATION RATE . ESTIMATED GFR I S NOT APPLICABLE FOR DIALYSIS PATIEN TS. [id number] 17:58:00 Test Item Value Reference Range Interpretation Comments LIPASE (BEAKER) (test code = 749) 30 U/L 8-78 Troponin [id number] 17:57:00 Test Item Value Reference Range Interpretation Comments Troponin I (test code = <0.01 0.00-0.15 11998-5) LESLIE (test code = LESLIE) Troponin I (TnI) levels must be interpreted in the context of the presenting symptoms and the clinical findings. Elevated TnI levels indicate myocardial damage, but are not specific for ischemic heart disease. Elevated TnI levels are seen in patients with other cardiac conditions (including myocarditis and congestive heart failure), and slight TnI elevations occur in patients with other conditions, including sepsis, renal failure, acidosis, acute neurological disease, and persistent tachyarrhythmia. Lab Interpretation (test Normal code = 45750-7) [facility] HospitalTROPONIN [id number] 17:57:00 Test Item Value Reference Range Interpretation Comments TROPONIN I (BEAKER) (test code = 397) < ng/mL 0.00-0.15 Troponin I (TnI) levels must be interpreted in the context of the presenting symptoms and the clinical findings. Elevated TnI levels indicate myocardial damage, but are not specific for ischemic heart disease. Elevated TnI levels are seen in patients with other cardiac conditions (including myocarditis and congestive heart failure), and slight TnI elevations occur in patients with other conditions, including sepsis, renal failure, acidosis, acute neurological disease, and persistent tachyarrhythmia.Urinalysis w/[id number] 17:45:00 Test Item Value Reference Range Interpretation Comments Color, UA (test code = Yellow 5778-6) Clarity, UA (test code Hazy = 5767-9) Specific [place], UA 1.017 1.001-1.035 (test code = 5811-5) pH, UA (test code = 5.0 5.0-8.0 5803-2) Protein, UA (test code Negative Negative = 52953-1) Glucose, UA (test code >500 mg/dL Negative A = 365) Ketones, UA (test code Negative Negative = 2514-8) Bilirubin, UA (test Negative Negative code = 70115-9) Blood, UA (test code = Negative Negative 52278-0) Nitrite, UA (test code Negative Negative = 5802-4) Leukocytes, UA (test Negative Negative code = 5799-2) Urobilinogen, UA (test <1.0 0.2-1.0 code = 66913-9) RBC, UA (test code = 0 See_Comment [Autom ated message] 65070-4) The system Zeer generated this result transmit sandra reference range : /HPF. The refer ence range was not u sed to interpret th is result as normal/abnormal . WBC, UA (test code = 1 See_Comment [Autom ated message] 5821-4) The system Zeer generated this result transmit sandra reference range : /HPF. The refer ence range was not u sed to interpret th is result as normal/abnormal . Bacteria, UA (test code None Seen = 56342-5) Mucus (test code = Rare 8247-9) Hyaline Casts, UA (test 9 See_Comment [Au tomated message] code = 13243-1) The system [facility] generated this result transmit sandra reference range : /LPF. The refer ence range was not u sed to interpret th is result as normal/abnormal . Specimen Source (test code = 2795) Lab Interpretation Abnormal (test code = 40189-3) [facility] W/ [id number] 17:45:00 Test Item Value Reference Range Interpretation Comments COLOR (BEAKER) (test code = 470) Yellow CLARITY (BEAKER) (test code = 469) Hazy SPECIFIC GRAVITY UA (BEAKER) (test 1.017 1.001-1.035 code = 468) PH UA (BEAKER) (test code = 467) 5.0 5.0-8.0 PROTEIN UA (BEAKER) (test code = Negative Negative 464) GLUCOSE UA (BEAKER) (test code = >500 mg/dL Negative A 365) KETONES UA (BEAKER) (test code = Negative Negative 371) BILIRUBIN UA (BEAKER) (test code = Negative Negative 462) BLOOD UA (BEAKER) (test code = Negative Negative 461) NITRITE UA (BEAKER) (test code = Negative Negative 465) LEUKOCYTE ESTERASE UA (BEAKER) Negative Negative (test code = 466) UROBILINOGEN UA (BEAKER) (test < mg/dL 0.2-1.0 code = 463) RBC UA (BEAKER) (test code = 519) 0 /HPF WBC UA (BEAKER) (test code = 520) 1 /HPF BACTERIA (BEAKER) (test code = None Seen 517) MUCUS (BEAKER) (test code = 1574) Rare HYALINE CASTS (BEAKER) (test code 9 /LPF = 514) SOURCE(PAULA) (test code = 2795) RAD, CHEST, 1 VIEW, NON [id number] 17:12:00Reason for exam:->Chest Pain [facility] 1950 Sex: MFINAL REPORT Chest, 1 view, 09/08/2020 5:07 PM. History: Chest pain. Comparison: 09/19/2016. Discussion: The cardiomediastinal silhouette and pulmonary vasculature are within normal limits for a portable exam. The lungs are clear without evidence of consolidation or effusion. The softtissues and osseous structures are intact. IMPRESSION: No acute cardiopulmonary abnormality. Signed: Deshaun Cabrera Verified Date/Time: 09/08/2020 17:12:36 Reading Location: [facility] Diagnostic Imaging [place] Room [place] [address] CBC with platelet count + automated [id number] 17:02:00 Test Item Value Reference Range Interpretation Comments WBC (test code = 8.6 See_Comment [Automated message] 6690-2) The system Zeer generated this result transmitted ref erence range: 4.0 - 10 .0 K/L. The refe rence range was not u sed to interpret this result as normal/abnor mal. RBC (test code = 789-8) 5.40 See_Comment [Au tomated message] The system Zeer generated this result transmitted ref erence range: 4.20 - 5 .80 M/L. The refe rence range was not u sed to interpret this result as normal/abnor mal. MCHC (test code = 33.8 See_Comment [Automate d message] 786-4) The system Zeer generated this result transmitted ref erence range: 32.0 - 3 6.0 GM/DL. The refe rence range was not u sed to interpret this result as normal/abnor mal. Hematocrit (test code = 48.0 % 36.0-50.0 4544-3) MCV (test code = 787-2) 88.9 fL 82.0-99.0 MCH (test code = 785-6) 30.0 pg 27.0-33.0 RDW (test code = 788-0) 13.4 % 12.0-15.0 Platelets (test code = 240 See_Comment [Aut omated message] 777-3) The system Zeer generated this result transmitted ref erence range: 150 - 43 0 K/CU MM. The referen ce range was not used to interpret this result as normal/abnor mal. MPV (test code = 9.8 fL 6.0-11.5 26569-3) % Neutros (test code = 71 % 429) % Lymphs (test code = 19 % 430) % Monos (test code = 7 % 431) % Eos (test code = 432) 1 % % Baso (test code = 1 % 437) # Neutros (test code = 6.10 See_Comment [Aut omated message] 670) The system Zeer generated this result transmitted ref erence range: 1.80 - 8 .00 K/L. The refe rence range was not u sed to interpret this result as normal/abnor mal. # Lymphs (test code = 1.62 See_Comment [Auto mated message] 414) The system Zeer generated this result transmitted ref erence range: 1.48 - 4 .50 K/L. The refe rence range was not u sed to interpret this result as normal/abnor mal. # Monos (test code = 0.63 See_Comment [Autom ated message] 415) The system Zeer generated this result transmitted ref erence range: 0.00 - 1 .30 K/L. The refe rence range was not u sed to interpret this result as normal/abnor mal. # Eos (test code = 416) 0.06 See_Comment [Au tomated message] The system Zeer generated this result transmitted ref erence range: 0.00 - 0 .50 K/L. The refe rence range was not u sed to interpret this result as normal/abnor mal. # Baso (test code = 0.06 See_Comment [Automa sandra message] 417) The system Zeer generated this result transmitted ref erence range: 0.00 - 0 .20 K/L. The refe rence range was not u sed to interpret this result as normal/abnor mal. [facility] W/PLT COUNT & AUTO [id number] 17:02:00 Test Item Value Reference Range Interpretation Comments WHITE BLOOD CELL COUNT (BEAKER) 8.6 K/ L 4.0-10.0 (test code = 775) RED BLOOD CELL COUNT (BEAKER) 5.40 M/ L 4.20-5.80 (test code = 761) HEMOGLOBIN (BEAKER) (test code = 16.2 GM/DL 13.0-16.8 410) HEMATOCRIT (BEAKER) (test code = 48.0 % 36.0-50.0 411) MEAN CORPUSCULAR VOLUME (BEAKER) 88.9 fL 82.0-99.0 (test code = 753) MEAN CORPUSCULAR HEMOGLOBIN 30.0 pg 27.0-33.0 (BEAKER) (test code = 751) MEAN CORPUSCULAR HEMOGLOBIN CONC 33.8 GM/DL 32.0-36.0 (BEAKER) (test code = 752) RED CELL DISTRIBUTION WIDTH 13.4 % 12.0-15.0 (BEAKER) (test code = 412) PLATELET COUNT (BEAKER) (test 240 K/CU MM 150-430 code = 756) MEAN PLATELET VOLUME (BEAKER) 9.8 fL 6.0-11.5 (test code = 754) NEUTROPHILS RELATIVE PERCENT 71 % (BEAKER) (test code = 429) LYMPHOCYTES RELATIVE PERCENT 19 % (BEAKER) (test code = 430) MONOCYTES RELATIVE PERCENT 7 % (BEAKER) (test code = 431) EOSINOPHILS RELATIVE PERCENT 1 % (BEAKER) (test code = 432) BASOPHILS RELATIVE PERCENT 1 % (BEAKER) (test code = 437) NEUTROPHILS ABSOLUTE COUNT 6.10 K/ L 1.80-8.00 (BEAKER) (test code = 670) LYMPHOCYTES ABSOLUTE COUNT 1.62 K/ L 1.48-4.50 (BEAKER) (test code = 414) MONOCYTES ABSOLUTE COUNT (BEAKER) 0.63 K/ L 0.00-1.30 (test code = 415) EOSINOPHILS ABSOLUTE COUNT 0.06 K/ L 0.00-0.50 (BEAKER) (test code = 416) BASOPHILS ABSOLUTE COUNT (BEAKER) 0.06 K/ L 0.00-0.20 (test code = 417) TROPONIN [id number] 19:54:00 Test Item Value Reference Range Interpretation Comments TROPONIN I (BEAKER) (test code = 0.01 ng/mL 0.00-0.15 397) Troponin I (TnI) levels must be interpreted in the context of the presenting symptoms and the clinical findings. Elevated TnI levels indicate myocardial damage, but are not specific for ischemic heart disease. Elevated TnI levels are seen in patients with other cardiac conditions (including myocarditis and congestive heart failure), and slight TnI elevations occur in patients with other conditions, including sepsis, renal failure, acidosis, acute neurological disease, and persistent tachyarrhythmia.[id number] 19:49:00 Test Item Value Reference Range Interpretation Comments PHOSPHORUS (BEAKER) (test code = 2.4 mg/dL 2.5-4.5 L 604) [id number] 19:49:00 Test Item Value Reference Range Interpretation Comments MAGNESIUM (BEAKER) (test code = 1.7 mg/dL 1.5-3.0 627) COMPREHENSIVE METABOLIC [id number] 19:49:00 Test Item Value Reference Range Interpretation Comments TOTAL PROTEIN 6.3 gm/dL 6.0-8.5 (BEAKER) (test code = 770) ALBUMIN (BEAKER) 3.6 g/dL 3.5-5.0 (test code = 1145) ALKALINE PHOSPHATASE 67 U/L 30-115 (BEAKER) (test code = 346) BILIRUBIN TOTAL 0.2 mg/dL 0.1-1.3 (BEAKER) (test code = 377) SODIUM (BEAKER) (test 139 meq/L 135-148 code = 381) POTASSIUM (BEAKER) 3.9 meq/L 3.5-5.5 (test code = 379) CHLORIDE (BEAKER) 104 meq/L 98-106 (test code = 382) CO2 (BEAKER) (test 24 meq/L 20-31 code = 355) BLOOD UREA NITROGEN 21 mg/dL 10-26 (BEAKER) (test code = 354) CREATININE (BEAKER) 1.72 mg/dL 0.50-1.20 H (test code = 358) GLUCOSE RANDOM 167 mg/dL 70-110 H (BEAKER) (test code = 652) CALCIUM (BEAKER) 9.0 mg/dL 8.5-10.5 (test code = 697) AST (SGOT) (BEAKER) 26 U/L 5-40 (test code = 353) ALT (SGPT) (BEAKER) 33 U/L 6-50 (test code = 347) EGFR (BEAKER) (test 40 mL/min/1.73 ESTIMA SANDRA GFR IS code = 1092) sq m NOT ACCURATE CREATININE CLEARANCE IN PREDICTING GLOMERULAR FILTRATION RATE . ESTIMATED GFR I S NOT APPLICABLE FOR DIALYSIS PATIEN TS. [id number] 19:35:00 Test Item Value Reference Range Interpretation Comments PROTIME (BEAKER) (test code = 12.5 seconds 11.8-14.4 759) INR (BEAKER) (test code = 370) 0.9 1.2-1.5 L PARTIAL THROMBOPLASTIN TIME 25.5 seconds 23.2-36.1 (BEAKER) (test code = 760) RECOMMENDED COUMADIN/WARFARIN INR THERAPY RANGESSTANDARD DOSE: 2.0 - 3.0 Includes: PROPHYLAXIS for venous thrombosis, systemic embolization; TREATMENT for venous thrombosis and/or pulmonary embolus.HIGH RISK: Target INR is 2.5-3.5 for patients with mechanical heart valves.CBC W/PLT COUNT & AUTO [id number] 19:28:00 Test Item Value Reference Range Interpretation Comments WHITE BLOOD CELL COUNT 5.5 K/ L 4.0-10.0 (BEAKER) (test code = 775) RED BLOOD CELL COUNT 4.35 M/ L 4.20-5.80 (BEAKER) (test code = 761) HEMOGLOBIN (BEAKER) 13.4 GM/DL 13.0-16.8 (test code = 410) HEMATOCRIT (BEAKER) 40.6 % 36.0-50.0 (test code = 411) MEAN CORPUSCULAR VOLUME 93.3 fL 82.0-99.0 (BEAKER) (test code = 753) MEAN CORPUSCULAR 30.8 pg 27.0-33.0 HEMOGLOBIN (BEAKER) (test code = 751) MEAN CORPUSCULAR 33.0 GM/DL 32.0-36.0 HEMOGLOBIN CONC (BEAKER) (test code = 752) RED CELL DISTRIBUTION 13.4 % 12.0-15.0 WIDTH (BEAKER) (test code = 412) PLATELET COUNT (BEAKER) 181 K/CU MM 150-430 (test code = 756) MEAN PLATELET VOLUME 9.5 fL 6.0-11.5 MPV-Toribio roximately (BEAKER) (test code = 20% po sitive bias 754) due to method change. NUCLEATED RED BLOOD 0 /100 WBC 0-0 CELLS (BEAKER) (test code = 413) NEUTROPHILS RELATIVE 56 % PERCENT (BEAKER) (test code = 429) LYMPHOCYTES RELATIVE 30 % PERCENT (BEAKER) (test code = 430) MONOCYTES RELATIVE 11 % PERCENT (BEAKER) (test code = 431) EOSINOPHILS RELATIVE 2 % PERCENT (BEAKER) (test code = 432) BASOPHILS RELATIVE 1 % PERCENT (BEAKER) (test code = 437) NEUTROPHILS ABSOLUTE 3.12 K/ L 1.80-8.00 COUNT (BEAKER) (test code = 670) LYMPHOCYTES ABSOLUTE 1.64 K/ L 1.48-4.50 COUNT (BEAKER) (test code = 414) MONOCYTES ABSOLUTE 0.58 K/ L 0.00-1.30 COUNT (BEAKER) (test code = 415) EOSINOPHILS ABSOLUTE 0.12 K/ L 0.00-0.50 COUNT (BEAKER) (test code = 416) BASOPHILS ABSOLUTE 0.03 K/ L 0.00-0.20 COUNT (BEAKER) (test code = 417) IMMATURE 1 % 0-0 H GRANULOCYTES-RELATIVE PERCENT (BEAKER) (test code = 2801) CT, BRAIN, WITHOUT [id number] 19:16:00Reason for exam:->NUMBNESSWhat is the patient's sedation requirement?->No SedationFINAL REPORT CT, BRAIN, WITHOUT CONTRAST, CT, SPINE, CERVICAL, WO CONTRAST CLINICAL INDICATION: NUMBNESSleft arm numbness COMPARISON: None available TECHNIQUE: Noncontrast axial CTimaging of the brain and cervical spine. DOSE REDUCTION: Dose modulation, iterative reconstruction, and/or weight-based adjustment of the mA/kV was utilized to reduce the radiation dose to as low as reasonably achievable. FINDINGS:CT BRAIN W/O: No intracranial hemorrhage, midline shift or mass effect.Midline structures are normally developed. Mild chronic microvascular ischemic changes of the periventricular and subcortical white matter are present. No hydrocephalus. Orbits are within normal limits. No obstructive paranasal sinus disease. CT CERVICAL SPINE W/O: Alignment of the cervical spine is within normal limits. Vertebral body height is maintained.Mild multilevel disc space height loss, mostconspicuous at C5-C6 and C6-C7No acute findings within the paraspinal soft tissues. Findings by level:C2/C3: No significant canal or foraminal narrowing C3/C4: No significant canal narrowing. Bilateralfacet arthropathy and hypertrophy with at least mild bilateral foraminal narrowing. C4/C5: Disc osteophyte, asymmetric to the right indents and flattens the ventral aspect of the thecal sac. Bilateral facet arthropathy and hypertrophy and asymmetric right-sided disc osteophyte complex contribute to mil d/moderate right and mild left-sided foraminal narrowing. No significant spinal canal narrowing. C5/C6: Broad-based posterior disc osteophyte complex and mild ligamentum flavum thickening with moderatecanal narrowing and flattening of the ventral aspect of the thecal sac without contouring of the cervical cord. Bilateral facet arthropathy and hypertrophy and uncovertebral osteophytes contribute to severe bilateral foraminal narrowing. C6/C7: Disc osteophyte, asymmetric to the left and bilateral facet arthropathy and hypertrophy. Mild bilateral foraminal narrowing. No significant spinal canal narrowing. C7/T1: No significant spinal canal or foraminal narrowing IMPRESSION: No acute intracranial findings. Acute fracture or malalignment of the cervical spine. Multilevel disc and facet degeneration, which may explain left arm numbness (in the appropriate clinical setting) If there is persistent clinical concern for intracranial pathology, MR examination is recommended for further characterization. Signed: Ketty Sanchez MDReport Verified Date/Time: 12/11/2018 19:16:03 Reading Location: [facility] C013V Neuro Reading Room CT, SPINE, CERVICAL, WO [id number] 19:16:00Reason for exam:->NUMBNESSWhat is the patient's sedation requirement?->No SedationFINAL REPORT CT, BRAIN, WITHOUT CONTRAST, CT, SPINE, CERVICAL, WO CONTRAST CLINICAL INDICATION: NUMBNESSleft arm numbness COMPARISON: None available TECHNIQUE: Noncontrast axial CTimaging of the brain and cervical spine. DOSE REDUCTION: Dose modulation, iterative reconstruction, and/or weight-based adjustment of the mA/kV was utilized to reduce the radiation dose to as low as reasonably achievable. FINDINGS:CT BRAIN W/O: No intracranial hemorrhage, midline shift or mass effect.Midline structures are normally developed. Mild chronic microvascular ischemic changes of the periventricular and subcortical white matter are present. No hydrocephalus. Orbits are within normal limits. No obstructive paranasal sinus disease. CT CERVICAL SPINE W/O: Alignment of the cervical spine is within normal limits. Vertebral body height is maintained.Mild multilevel disc space height loss, mostconspicuous at C5-C6 and C6-C7No acute findings within the paraspinal soft tissues. Findings by level:C2/C3: No significant canal or foraminal narrowing C3/C4: No significant canal narrowing. Bilateralfacet arthropathy and hypertrophy with at least mild bilateral foraminal narrowing. C4/C5: Disc osteophyte, asymmetric to the right indents and flattens the ventral aspect of the thecal sac. Bilateral facet arthropathy and hypertrophy and asymmetric right-sided disc osteophyte complex contribute to mil d/moderate right and mild left-sided foraminal narrowing. No significant spinal canal narrowing. C5/C6: Broad-based posterior disc osteophyte complex and mild ligamentum flavum thickening with moderatecanal narrowing and flattening of the ventral aspect of the thecal sac without contouring of the cervical cord. Bilateral facet arthropathy and hypertrophy and uncovertebral osteophytes contribute to severe bilateral foraminal narrowing. C6/C7: Disc osteophyte, asymmetric to the left and bilateral facet arthropathy and hypertrophy. Mild bilateral foraminal narrowing. No significant spinal canal narrowing. C7/T1: No significant spinal canal or foraminal narrowing IMPRESSION: No acute intracranial findings. Acute fracture or malalignment of the cervical spine. Multilevel disc and facet degeneration, which may explain left arm numbness (in the appropriate clinical setting) If there is persistent clinical concern for intracranial pathology, MR examination is recommended for further characterization. Signed: Ketty Sanchez MDReport Verified Date/Time: 12/11/2018 19:16:03 Reading Location: [address] Neuro Reading Room UM CULTURE + GRAM [id number] 11:13:00 Test Item Value Reference Range Interpretation Comments CULTURE (BEAKER) 4+ Normal respiratory (test code = 1095) katlyn present GRAM STAIN RESULT 1+ WBCs (BEAKER) (test code = 1123) GRAM STAIN RESULT 0-5 epithelial cells (BEAKER) (test code = 40857) GRAM STAIN RESULT 3+ gram positive cocci (BEAKER) (test code = in pairs 08736) GRAM STAIN RESULT 3+ gram negative rods (BEAKER) (test code = 782369) GRAM STAIN RESULT 1+ gram positive rods (BEAKER) (test code = 345556) GRAM STAIN RESULT <1+ gram negative cocci (BEAKER) (test code = 280317) URINE [id number] 12:28:00 Test Item Value Reference Range Interpretation Comments CULTURE (BEAKER) (test code = 1095) No growth URINALYSIS W/ [id number] 10:11:00 Test Item Value Reference Range Interpretation Comments COLOR (BEAKER) (test code = 470) Lissa CLARITY (BEAKER) (test code = 469) Hazy SPECIFIC GRAVITY UA (BEAKER) (test 1.023 1.001-1.035 code = 468) PH UA (BEAKER) (test code = 467) 5.0 5.0-8.0 PROTEIN UA (BEAKER) (test code = 100 mg/dL Negative A 464) GLUCOSE UA (BEAKER) (test code = >500 mg/dL Negative A 365) KETONES UA (BEAKER) (test code = Trace Negative A 371) BILIRUBIN UA (BEAKER) (test code = Negative Negative 462) BLOOD UA (BEAKER) (test code = Negative Negative 461) NITRITE UA (BEAKER) (test code = Positive Negative A 465) LEUKOCYTE ESTERASE UA (BEAKER) Moderate Negative A (test code = 466) UROBILINOGEN UA (BEAKER) (test 2.0 mg/dL 0.2-1.0 H code = 463) RBC UA (BEAKER) (test code = 519) 4 /HPF WBC UA (BEAKER) (test code = 520) 266 /HPF BACTERIA (BEAKER) (test code = Many 517) MUCUS (BEAKER) (test code = 1574) Few SQUAMOUS EPITHELIAL (BEAKER) (test 1 /HPF code = 516) HYALINE CASTS (BEAKER) (test code 5 /LPF = 514) SOURCE(BEAKER) (test code = 2795) TROPONIN [id number] 09:30:00 Test Item Value Reference Range Interpretation Comments TROPONIN I (BEAKER) (test code = 0.01 ng/mL 0.00-0.15 397) Troponin I (TnI) levels must be interpreted in the context of the presenting symptoms and the clinical findings. Elevated TnI levels indicate myocardial damage, but are not specific for ischemic heart disease. Elevated TnI levels are seen in patients with other cardiac conditions (including myocarditis and congestive heart failure), and slight TnI elevations occur in patients with other conditions, including sepsis, renal failure, acidosis, acute neurological disease, and persistent tachyarrhythmia.B-TYPE NATRIURETIC FACTOR (BNP) 2016-10-03 08:49:00 Test Item Value Reference Range Interpretation Comments B-TYPE NATRIURETIC PEPTIDE (BEAKER) 13 pg/mL 0-100 (test code = 700) BASIC METABOLIC [id number] 08:42:00 Test Item Value Reference Range Interpretation Comments SODIUM (BEAKER) 132 meq/L 135-148 L (test code = 381) POTASSIUM (BEAKER) 4.4 meq/L 3.5-5.5 (test code = 379) CHLORIDE (BEAKER) 96 meq/L 98-106 L (test code = 382) CO2 (BEAKER) (test 24 meq/L 20-31 code = 355) BLOOD UREA NITROGEN 18 mg/dL 10-26 (BEAKER) (test code = 354) CREATININE (BEAKER) 1.64 mg/dL 0.50-1.20 H (test code = 358) GLUCOSE RANDOM 355 mg/dL 70-110 H (BEAKER) (test code = 652) CALCIUM (BEAKER) 9.8 mg/dL 8.5-10.5 (test code = 697) EGFR (BEAKER) (test 42 mL/min/1.73 ESTIMA SANDRA GFR IS code = 1092) sq m NOT ACCURATE CREATININE CLEARANCE IN PREDICTING GLOMERULAR FILTRATION RATE . ESTIMATED GFR I S NOT APPLICABLE FOR DIALYSIS PATIEN TS. CBC W/PLT COUNT & AUTO [id number] 08:21:00 Test Item Value Reference Range Interpretation Comments WHITE BLOOD CELL COUNT (BEAKER) 16.5 K/ L 4.0-10.0 H (test code = 775) RED BLOOD CELL COUNT (BEAKER) 4.72 M/ L 4.20-5.80 (test code = 761) HEMOGLOBIN (BEAKER) (test code = 13.9 GM/DL 13.0-16.8 410) HEMATOCRIT (BEAKER) (test code = 42.8 % 40.0-50.0 411) MEAN CORPUSCULAR VOLUME (BEAKER) 90.6 fL 82.0-98.0 (test code = 753) MEAN CORPUSCULAR HEMOGLOBIN 29.5 pg 27.0-33.0 (BEAKER) (test code = 751) MEAN CORPUSCULAR HEMOGLOBIN CONC 32.6 GM/DL 32.0-36.0 (BEAKER) (test code = 752) RED CELL DISTRIBUTION WIDTH 15.4 % 12.0-15.0 H (BEAKER) (test code = 412) PLATELET COUNT (BEAKER) (test 220 K/CU MM 150-430 code = 756) MEAN PLATELET VOLUME (BEAKER) 7.7 fL 6.5-10.5 (test code = 754) NUCLEATED RED BLOOD CELLS 0 /100 WBC 0-0 (BEAKER) (test code = 413) NEUTROPHILS RELATIVE PERCENT 87 % (BEAKER) (test code = 429) LYMPHOCYTES RELATIVE PERCENT 6 % (BEAKER) (test code = 430) MONOCYTES RELATIVE PERCENT 6 % (BEAKER) (test code = 431) EOSINOPHILS RELATIVE PERCENT 1 % (BEAKER) (test code = 432) BASOPHILS RELATIVE PERCENT 1 % (BEAKER) (test code = 437) NEUTROPHILS ABSOLUTE COUNT 14.30 K/ L 1.80-8.00 H (BEAKER) (test code = 670) LYMPHOCYTES ABSOLUTE COUNT 1.00 K/ L 1.48-4.50 L (BEAKER) (test code = 414) MONOCYTES ABSOLUTE COUNT (BEAKER) 1.00 K/ L 0.00-1.30 (test code = 415) EOSINOPHILS ABSOLUTE COUNT 0.10 K/ L 0.00-0.50 (BEAKER) (test code = 416) BASOPHILS ABSOLUTE COUNT (BEAKER) 0.10 K/ L 0.00-0.20 (test code = 417)
[2022-10-27 12:12] LABS: Absolute Lymphocytes (CBC) 1.3 K/uL (0.7-4.9); Hematocrit 42.1 % (39.6-49.0); Lymphocytes % 19.3 % (15.3-44.8); MCV 90.6 fL (80-100); MPV 7.1 fL (7.6-11.3); RBC Red Blood Cell Count 4.64 M/uL (4.33-5.43)
[2022-10-27] MEDS ORDERED: VANCOMYCIN 1.5 GM in NA CHLORIDE 0.9% 500 ML IVPB ONE (12:15)
[2022-10-27 12:17] LABS: Protime INR 0.96
[2022-10-27] MEDS ORDERED: TDAP (DIPHTH,PERTUSS(ACELL),TET VAC) 0.5 ML VIAL IMVAC ONE (12:20)
[2022-10-27 12:30] LABS: Albumin 3.3 g/dL (3.4-5.0); Bilirubin Total 0.4 mg/dL (0.2-1.0); Potassium 4.5 mEq/L (3.5-5.1); Protein, Total 6.6 g/dL (6.4-8.2)
--- NOTE | 2022-10-27 13:29 | RAD REPORT ---
EXAM DESCRIPTION: USExtrem Venous W Compress Bil10/27/2022 12:49 pm CLINICAL HISTORY: Leg swelling COMPARISON: None. FINDINGS: Right common femoral, superficial femoral, greater saphenous, popliteal and right posterio r tibial veins are compressible and demonstrate augmentation. Doppler demonstrates good flow. Grayscale, color and spectral analysis performed on all vessels IMPRESSION: No evidence of deep venous thrombosis involving the right lower extremity.
--- NOTE | 2022-10-27 13:34 | EDPHYS ---
Physician Documentation [facility] Name: Garrett Miguel Age: 72 yrs Sex: Male : 1950 Arrival Date: 10/27/2022 Time: 11:26 Bed 5 Private MD: ED Physician Rajat Bledsoe HPI: 10/27 11:40 This 72 yrs old Male presents to ER via Ambulatory with complaints of Cellulitus in snw legs. 11:40 Onset: The symptoms/episode began/occurred 1 week(s) ago, and became persistent pt snw video chatted his PCP at [facility], given Keflex q 6h which pt completed, he had clindamycin at home and took that x several doses. . Historical: - Allergies: 11:38 No Known Allergies; iw - Home Meds: 11:38 insulin [Active]; BP med [Active]; Plavix 75 mg Oral tablet daily [Active]; iw - PMHx: 11:38 Diabetes mellitus; Hypertensive disorder; iw - PSHx: 11:38 heart stent; iw - Immunization history:: Adult Immunizations up to date. - Social history:: Smoking status: Patient denies any tobacco usage or history of. ROS: 11:38 Constitutional: Negative for fever, chills, and weight loss, Eyes: Negative for injury, snw pain, redness, and discharge, ENT: Negative for injury, pain, and discharge, Neck: Negative for injury, pain, and swelling, Cardiovascular: Negative for chest pain, palpitations, and edema, Respiratory: Negative for shortness of breath, cough, wheezing, and pleuritic chest pain, Abdomen/GI: Negative for abdominal pain, nausea, vomiting, diarrhea, and constipation, Back: Negative for injury and pain, : Negative for injury, bleeding, discharge, and swelling, Skin: Negative for injury, rash, and discoloration, Neuro: Negative for headache, weakness, numbness, tingling, and seizure, Psych: Negative for depression, anxiety, suicide ideation, homicidal ideation, and hallucinations. 11:38 MS/extremity: Positive for cellulitis to right > left anterior lower legs. Exam: 11:38 Constitutional: This is a well developed, well nourished patient who is awake, alert, snw and in no acute distress. Head/Face: Normocephalic, atraumatic. Eyes: Pupils equal round and reactive to light, extra-ocular motions intact. Lids and lashes normal. Conjunctiva and sclera are non-icteric and not injected. Cornea within normal limits. Periorbital areas with no swelling, redness, or edema. ENT: Nares patent. No nasal discharge, no septal abnormalities noted. Tympanic membranes are normal and external auditory canals are clear. Oropharynx with no redness, swelling, or masses, exudates, or evidence of obstruction, uvula midline. Mucous membranes moist. Neck: Trachea midline, no thyromegaly or masses palpated, and no cervical lymphadenopathy. Supple, full range of motion without nuchal rigidity, or vertebral point tenderness. No Meningismus. Chest/axilla: Normal chest wall appearance and motion. Nontender with no deformity. No lesions are appreciated. Cardiovascular: Regular rate and rhythm with a normal S1 and S2. No gallops, murmurs, or rubs. Normal PMI, no JVD. No pulse deficits. Respiratory: Lungs have equal breath sounds bilaterally, clear to auscultation and percussion. No rales, rhonchi or wheezes noted. No increased work of breathing, no retractions or nasal flaring. Abdomen/GI: Soft, non-tender, with normal bowel sounds. No distension or tympany. No guarding or rebound. No evidence of tenderness throughout. Back: No spinal tenderness. No costovertebral tenderness. Full range of motion. MS/ Extremity: Pulses equal, no cyanosis. Neurovascular intact. Full, normal range of motion. Neuro: Awake and alert, GCS 15, oriented to person, place, time, and situation. Cranial nerves II-XII grossly intact. Motor strength 5/5 in all extremities. Sensory grossly intact. Cerebellar exam normal. Normal gait. Psych: Awake, alert, with orientation to person, place and time. Behavior, mood, and affect are within normal limits. 11:38 Skin: Appearance: normal except for affected area, cellulitis, that is moderate, on the right > left lower legs with erythema and a few scabbed abrasions. Vital Signs: 11:34 BP 135 / 69; Pulse 89; Resp 16; Temp 97.9; Pulse Ox 98% on R/A; iw 12:08 BP 111 / 55; Pulse 60; Resp 16; Pulse Ox 100% ; vg1 12:43 BP 119 / 54; Pulse 58; Resp 16; Pulse Ox 99% ; vg1 13:00 BP 114 / 66; Pulse 55; Resp 16; Pulse Ox 98% on R/A; vg1 14:00 BP 127 / 67; Pulse 55; Resp 16; Pulse Ox 98% ; vg1 MDM: 11:30 Patient medically screened. rn 11:38 Differential diagnosis: bacterial infection, cellulitis. Data reviewed: vital signs, snw nurses notes. I considered the following discharge prescriptions or medication management in the emergency department Medications were administered in the Emergency Department. See MAR. Counseling: I had a detailed discussion with the patient and/or guardian regarding: the historical points, exam findings, and any diagnostic results supporting the discharge/admit diagnosis, lab results, radiology results. Special discussion: I discussed in detail with the patient the higher chance of wound infection based on his presenting history. Based on the history and exam findings, there is no indication for further emergent testing or inpatient evaluation. I discussed with the patient/guardian the need to see the primary care provider for further evaluation of the symptoms. 10/27 11:38 Order name: CBC with Diff; Complete Time: 12:27 snw 10/27 11:38 Order name: CMP; Complete Time: 12:33 snw 10/27 11:38 Order name: Blood Culture Adult (2) snw 10/27 11:38 Order name: PT-INR; Complete Time: 12:27 snw 10/27 11:38 Order name: Ptt, Activated; Complete Time: 12:28 snw 10/27 11:38 Order name: Extrem Venous W Compression [place] US; Complete Time: 14:05 snw Administered Medications: 12:42 Drug: Boostrix Tdap IM 0.5 ml Route: IM; Site: right deltoid; vg1 14:42 Follow up: Response: No adverse reaction vg1 12:50 Drug: vancoMYCIN IVPB 1.5 grams Route: IVPB; Rate: calculated rate; Site: right forearm;vg1 14:42 Follow up: IV Status: Completed infusion; IV Intake: 500ml vg1 Disposition: 14:51 Co-signature as Attending Physician, Rajat Bledsoe MD I reviewed the patient's care rn provided by the Advanced Practice Provider and agree with the diagnosis and treatment plan. Disposition Summary: 10/27/22 13:33 Discharge Ordered Location: Home snw Condition: Stable snw Diagnosis - Cellulitis of right lower limb snw - Cellulitis of left lower limb snw Followup: snw - With: Emergency Department - When: As needed - Reason: Worsening of condition Followup: snw - With: Private Physician - When: 2 - 3 days - Reason: Recheck today's complaints, Continuance of care, Re-evaluation by your physician Discharge Instructions: - Discharge Summary Sheet snw - Cellulitis, Adult snw - Heat Therapy snw Forms: - Medication Reconciliation Form snw - Thank You Letter snw - Antibiotic Education snw - Prescription Opioid Use snw Prescriptions: - Doxycycline Hyclate 100 mg Oral Tablet - take 1 tablet by ORAL route every 12 hours; 20 tablet; Refills: 0, Product snw Selection Permitted - Tramadol 50 mg Oral Tablet - take 1 tablet by ORAL route every 8 hours as needed; 12 tablet; Refills: 0, snw Product Selection Permitted Signatures: Dispatcher [employer] EDMiracle Larios, DREDGE WORKER-C DREDGE WORKER-Csnw Maritza Best, RN Rajat Mesa MD MD rn Garcia, Victoria, RN RN vg1
--- NOTE | 2022-10-27 13:34 | ER ---
Nurse's Notes [facility] Name: Garrett Miguel Age: 72 yrs Sex: Male : 1950 Arrival Date: 10/27/2022 Time: 11:26 Bed 5 Private MD: Diagnosis: Cellulitis of right lower limb;Cellulitis of left lower limb Presentation: 10/27 11:34 Chief complaint: Patient states: cellulitis to RLE X 1 week, has been on keflex, not iw getting better, now has moved to left leg also. Coronavirus screen: At this time, the client does not indicate any symptoms associated with coronavirus-19. Ebola Screen: Patient negative for fever greater than or equal to 101.5 degrees Fahrenheit, and additional compatible Ebola Virus Disease symptoms Patient denies exposure to infectious person. Patient denies travel to an Ebola-affected area in the 21 days before illness onset. No symptoms or risks identified at this time. Initial Sepsis Screen: Does the patient meet any 2 criteria? No. Patient's initial sepsis screen is negative. Does the patient have a suspected source of infection? No. Patient's initial sepsis screen is negative. Risk Assessment: Do you want to hurt yourself or someone else? Patient reports no desire to harm self or others. Onset of symptoms was October 20, 2022. 11:34 Method Of Arrival: Ambulatory iw 11:34 Acuity: DARYL 3 iw Historical: - Allergies: 11:38 No Known Allergies; iw - Home Meds: 11:38 insulin [Active]; BP med [Active]; Plavix 75 mg Oral tablet daily [Active]; iw - PMHx: 11:38 Diabetes mellitus; Hypertensive disorder; iw - PSHx: 11:38 heart stent; iw - Immunization history:: Adult Immunizations up to date. - Social history:: Smoking status: Patient denies any tobacco usage or history of. Screenin:09 [facility] ED Fall Risk Assessment (Adult) History of falling in the last 3 months, vg1 including since admission No falls in past 3 months (0 pts). Abuse screen: Denies threats or abuse. Denies injuries from another. Abuse screen: Denies threats or abuse. Nutritional screening: No deficits noted. Tuberculosis screening: No symptoms or risk factors identified. Assessment: 11:40 General: Appears in no apparent distress. comfortable, Behavior is calm, cooperative. vg1 Pain: Denies pain. Neuro: Level of Consciousness is awake, alert, obeys commands, Oriented to person, place, time, situation. Cardiovascular: Patient's skin is warm and dry. Respiratory: Airway is patent Respiratory effort is even, unlabored. GI: No signs and/or symptoms were reported involving the gastrointestinal system. : Derm: Skin is red, Skin temperature is warm Rash noted that is red, on right leg and left leg. Musculoskeletal: Circulation, motion, and sensation intact. 12:17 Reassessment: US at bedside. vg1 12:43 Reassessment: Patient appears in no apparent distress at this time. No changes from vg1 previously documented assessment. Patient and/or family updated on plan of care and expected duration. Pain level reassessed. Patient is alert, oriented x 3, equal unlabored respirations, skin warm/dry/pink. 13:35 Reassessment: Pt up for d/c, currently waiting for IV antibiotics to complete. vg1 14:42 Reassessment: Patient appears in no apparent distress at this time. Patient and/or vg1 family updated on plan of care and expected duration. Pain level reassessed. Patient is alert, oriented x 3, equal unlabored respirations, skin warm/dry/pink. Patient denies pain at this time. Vital Signs: 11:34 BP 135 / 69; Pulse 89; Resp 16; Temp 97.9; Pulse Ox 98% on R/A; iw 12:08 BP 111 / 55; Pulse 60; Resp 16; Pulse Ox 100% ; vg1 12:43 BP 119 / 54; Pulse 58; Resp 16; Pulse Ox 99% ; vg1 13:00 BP 114 / 66; Pulse 55; Resp 16; Pulse Ox 98% on R/A; vg1 14:00 BP 127 / 67; Pulse 55; Resp 16; Pulse Ox 98% ; vg1 ED Course: 11:30 Patient arrived in ED. ts1 11:30 Rajat Bledsoe MD is Attending Physician. rn 11:32 Miracle Gil FNP-C is PHCP. snw 11:34 Tavia Orellana, RN is Primary Nurse. vg1 11:36 Triage completed. iw 11:39 Arm band placed on. iw 11:50 Missed attempt(s): 20 gauge in right antecubital area. vg1 12:00 Inserted saline lock: 22 gauge in right forearm, using aseptic technique. Blood vg1 collected. 12:00 Initial lab(s) drawn, by me, sent to lab. First set of blood cultures drawn Right FA. vg1 12:09 Patient has correct armband on for positive identification. Bed in low position. Call vg1 light in reach. Side rails up X 1. Side rails up X2. 12:29 Extrem Venous W Compression [place] US In Process Unspecified. EDMS 12:35 Second set of blood cultures drawn Right hand. vg1 14:43 No provider procedures requiring assistance completed. IV discontinued, intact, vg1 bleeding controlled, No redness/swelling at site. Pressure dressing applied. Administered Medications: 12:42 Drug: Boostrix Tdap IM 0.5 ml Route: IM; Site: right deltoid; vg1 14:42 Follow up: Response: No adverse reaction vg1 12:50 Drug: vancoMYCIN IVPB 1.5 grams Route: IVPB; Rate: calculated rate; Site: right forearm;vg1 14:42 Follow up: IV Status: Completed infusion; IV Intake: 500ml vg1 Medication: 11:40 VIS not applicable for this client. vg1 Intake: 14:42 IV: 500ml; Total: 500ml. vg1 Outcome: 13:33 Discharge ordered by . snw 14:44 Discharged to home with family. vg1 14:44 Condition: good 14:44 Discharge instructions given to patient, Instructed on discharge instructions, follow up and referral plans. medication usage, Demonstrated understanding of instructions, follow-up care, medications, Prescriptions given X 2. 14:44 Patient left the ED. vg1 Signatures: Dispatcher [employer] EDMiracle Larios, DIGITAL DEVELOPER-C DIGITAL DEVELOPER-Csnw Maritza Best, Rajat Mesa RN, MD MD rn Garcia, Victoria, RN RN vg1 Rachel Daniel PAS PAS ts1 Corrections: (The following items were deleted from the chart) 12:42 12:00 Initial lab(s) drawn, by me, sent to lab. First set of blood cultures drawn by vg1 me, vg1
[2022-10-27 14:58] VITALS: TEMP 97.9
[2022-10-27 15:24] VITALS: BP 127/67; O2SAT 98
== END 2022-10-27 14:44 | disposition home or self-care (01) ==
LOC: ER 11:26
DX: L03.116 Cellulitis of left lower limb (principal); L03.115 Cellulitis of right lower limb; E11.9 Type 2 diabetes mellitus without complications; Z79.4 Long term (current) use of insulin; I10 Essential (primary) hypertension; Z95.818 Presence of other cardiac implants and grafts
CPT/HCPCS: 96365; 87040 ×2; 85025; 36415; 85610; 85730; 80053; 93970; 96372; 99284; 96366; J7040